=== PATIENT | male | born 1945 | race American Indian/Alaskan Native ===

== ENCOUNTER 2017-02-11 06:42 | Observation (INO) | payer MEDICARE ==
[2017-02-11 07:44] LABS: Hematocrit 31.9 % (35.5-45.6); Mean Corpuscular HGB Conc 35 % (32-34); Mean Corpuscular Hemoglobin 27 pg (28-32); Mean Corpuscular Volume 77 fl (84-94); Red Blood Count 4.16 M/mm3 (3.65-5.03); Red Cell Distribution Width 17.9 % (13.2-15.2); White Blood Count 11.9 K/mm3 (4.5-11.0)
[2017-02-11 07:56] LABS: INR 1.13 (0.87-1.13)
[2017-02-11 07:58] LABS: Anion Gap 17 mmol/L; BUN/Creatinine Ratio 21.25; Blood Urea Nitrogen 17 mg/dL (9-20); Calcium 8.8 mg/dL (8.4-10.2); Carbon Dioxide 24 mmol/L (22-30); Chloride 104.1 mmol/L (98-107); Glucose 187 mg/dL (75-100); Potassium 4.2 mmol/L (3.6-5.0); Sodium 141 mmol/L (137-145)
[2017-02-11] MEDS ORDERED: NACL 0.9% 500 ML 500 ML IV SCH (08:00)
[2017-02-11 08:46] LABS: Platelet Count 337 K/mm3 (140-440)
[2017-02-11 08:50] LABS: Blastocytes % (Manual) 0 %
[2017-02-11 08:52] LABS: Elliptocytes 3+; Helmet Cells Rare
[2017-02-11 08:53] LABS: Diff Status Complete; Poikilocytosis 3+; Schistocytes Rare
[2017-02-11] MEDS ORDERED: HEPARIN/NS 5000 UNIT/500ML(CATH LAB) 1,000 ML IR ONE (09:56)
[2017-02-11] MEDS ORDERED: VERSED ONE (09:57)
[2017-02-11] MEDS ORDERED: SUBLIMAZE ONE (09:58)
[2017-02-11] MEDS: XYLOCAINE 2% INFILTRATI ONE ×2 (10:31→10:39)
[2017-02-11] MEDS: NITROGLYCERIN SYRINGE 3 ML ONE ×3 (10:31→10:40)
[2017-02-11] MEDS: CALAN ONE ×2 (10:32→10:40)
[2017-02-11] MEDS: HEPARIN 10,000 UNITS/10 ML ONE ×2 (10:32→10:40)
[2017-02-11] MEDS ORDERED: LASIX ONE (10:45)
[2017-02-11] MEDS ORDERED: K-DUR PO ONE ×3 (11:04→12:00)
[2017-02-11] MEDS ORDERED: DULCOLAX PR PRN (13:35)
[2017-02-11] MEDS ORDERED: ZOFRAN IV PRN (13:35)
[2017-02-11] MEDS ORDERED: MILK OF MAGNESIA PO PRN (13:35)
[2017-02-11] MEDS ORDERED: TYLENOL PO PRN (13:35)
--- NOTE | 2017-02-11 13:51 | History and Physical Report ---
History of Present Illness Date of examination: 02/11/17 Date of admission: 02/11/2017 Chief complaint: dyspnea, orthopnea History of present illness: Pt is a 71 YO male with a past medical history significant for severe MR ( consultation with CT surgeon pending), CMP (EF 25-30%), AICD in situ, HTN, HLP and DM. He is followed in our office by Dr. Chana Arroyo. Pt presented today for scheduled elective LHC with c/o orthopnea and dyspnea. He successfully underwent LHC which showed patent coronaries but elevated intracardiac pressures. He was given IV lasix and monitored in OPPU. Several hours following IV lasix injection, pt continued to have c/o dyspnea and was found to have bibasilar rales on examination. He will be admitted for at least overnight observation and management of acute on chronic combined systolic and diastolic heart failure. Echo done 01/21/2017 showed EF 25-30%, LV severely dilated, grade III diastolic dysfunction, pacemaker in RV, severe MR. Past History Past Medical History: diabetes, heart failure, hypertension, hyperlipidemia, other (severe MR; CMP) Past Surgical History: Other (AICD) Social history: , lives with family. denies: smoking, alcohol abuse, prescription drug abuse Medications and Allergies Allergies Allergy/AdvReac Type Severity Reaction Status Date / Time No Known Allergies Allergy Verified 02/11/17 07:18 Home Medications Medication Instructions Recorded Confirmed Last Taken Type Aspirin [Adult Low Dose Aspirin EC] 1 tab PO DAILY 10/31/15 02/11/17 02/10/17 22 :00 History Carvedilol [Coreg] 25 mg PO DAILY 10/31/15 02/11/17 02/09/17 History Hydrochlorothiazide 25 mg PO DAILY 10/31/15 02/11/17 2 Weeks Ago History [Hydrochlorothiazide] Metformin HCl [Metformin] 1,000 mg PO BID 10/31/15 02/11/17 02/09/17 History Multivit, Iron, Min #5, FA 1 each PO DAILY 10/31/15 02/11/17 02/09/17 History [Strovite Forte Caplet] Tamsulosin HCl [Tamsulosin HCl] 1 tab PO DAILY 10/31/15 02/11/17 02/09/17 History Active Meds: Active Medications Acetaminophen (Tylenol) 650 mg PO Q4H PRN PRN Reason: Pain MILD(1-3)/Fever >100.5/LAYNE Aspirin (Halfprin Ec) mg PO DAILY [facility] Bisacodyl (Dulcolax) 10 mg [place] QDAY PRN PRN Reason: Constipation unrelieved by MOM Carvedilol (Coreg) 12.5 mg PO BID [facility] Furosemide (Lasix) 40 mg IV 0600,1800 [facility] Sodium Chloride (Nacl 0.9% 500 Ml) 500 mls @ 50 mls/hr IV DIRECT [facility] Stop: 02/11/17 17:59 Last Admin: 02/11/17 08:30 Dose: 50 mls/hr Losartan Potassium (Cozaar) 100 mg PO QDAY [facility] Magnesium Hydroxide (Milk Of Magnesia) 30 ml PO Q4H PRN PRN Reason: Constipation Ondansetron HCl (Zofran) 4 mg IV Q8H PRN PRN Reason: N/V unrelieved by Reglan Spironolactone (Aldactone) 25 mg PO QDAY [facility] Tamsulosin HCl (Flomax) mg PO DAILY [facility] Review of Systems Constitutional: no weight loss, no weight gain, no fever, no chills, no sweats Ears, nose, mouth and throat: no ear pain, no nose pain, no sinus pressure, no sinus pain Cardiovascular: orthopnea, shortness of breath, dyspnea on exertion, paroxysmal nocturnal dyspnea, high blood pressure, no chest pain, no palpitations, no rapid /irregular heart beat, no edema, no syncope, no lightheadedness, no leg edema Respiratory: shortness of breath, dyspnea on exertion, pain on inspiration, no cough, no congestion, no wheezing Gastrointestinal: no abdominal pain, no nausea, no vomiting, no diarrhea, no constipation, no change in bowel habits Genitourinary Male: no dysuria, no hematuria, no flank pain, no discharge, no urinary frequency, no urinary hesitancy Musculoskeletal: no neck stiffness, no neck pain, no shooting arm pain, no arm numbness/tingling, no low back pain, no shooting leg pain, no leg numbness/ tingling, no redness of joints Integumentary: no rash, no pruritis, no redness, no sores, no wounds Neurological: no head injury, no paralysis, no weakness, no parathesias, no numbness, no tingling, no seizures, no syncope Psychiatric: no anxiety Endocrine: no cold intolerance, no heat intolerance Hematologic/Lymphatic: no easy bruising, no easy bleeding Allergic/Immunologic: no urticaria, no wheezing, no persistent infections Physical Examination Vital Signs Temp Pulse Resp BP Pulse Ox 98.3 F 84 20 125/79 95 02/11/17 07:17 02/11/17 07:17 02/11/17 07:02/11/17 07:02/11/17 07:17 General appearance: other (mild SOB at rest) HEENT: Positive: PERRL Cardiac: Positive: Reg Rate and Rhythm, S1/S2, Systolic Murmur Lungs: Positive: Rales (bibasilar), Wheezes (fine expiratory ) Neuro: Positive: Grossly Intact, Cranial Nerve 2-12 Intact Abdomen: Positive: Unremarkable, Soft, Active Bowel Sounds. Negative: Tender Skin: Positive: Clear. Negative: Rash, Wound Musculoskeletal: No Fluid Collection, No Pain, Normal Range of Motion Extremities: Absent: edema Results 02/12/17 05:17 02/12/17 05:17 Coagulation 02/11/17 02/11/17 Range/Units 07:30 07:30 PT 14.4 (12.2-14.9) Sec. INR 1.13 (0.87-1.13) APTT 45.9 H (24.2-36.6) Sec. CBC 02/11/17 Range/Units 07:30 WBC 11.9 H (4.5-11.0) K/mm3 RBC 4.16 (3.65-5.03) M/mm3 Hgb 11.0 L (11.8-15.2) gm/dl Hct 31.9 L (35.5-45.6) % Plt Count 337 (140-440) K/mm3 Comprehensive Metabolic Panel 02/11/17 Range/Units 07:30 Sodium 141 (137-145) mmol/L Potassium 4.2 (3.6-5.0) mmol/L Chloride 104.1 (98-107) mmol/L Carbon Dioxide 24 (22-30) mmol/L BUN 17 (9-20) mg/dL Creatinine 0.8 (0.8-1.5) mg/dL Glucose 187 H (75-100) mg/dL Calcium 8.8 (8.4-10.2) mg/dL - Imaging and Cardiology Echo: report reviewed Cardiac cath: report reviewed EKG interpretations - Telemetry EKG Rhythm: Paced Pacemaker: ventricular pacing w/capt Assessment and Plan Assessment: Acute on chronic combined systolic and diastolic heart failure Leukocytosis Dilated NICMP - EF 25-30% AICD in situ Severe MR HTN HLP DM Plan: Admit to telemetry. Await CXR. Initiate scheduled IV lasix, 40mg BID. Resume home ASA, BB, ARB, aldactone. Initiate AC/HS sliding scale Novolog. Hold home metformin x 48Hr given recent LHC. Repeat BMP and CBC in AM. Consult hospitalist, Dr. Potter, for assistance in medical care. Assessment and plan reviewed with pt and pt's family members at bedside. The patient has been seen in conjunction with Dr. Chana Arroyo who agrees with the assessment and plan of care.
[2017-02-11] MEDS ORDERED: PROVENTIL IH PRN (14:02)
[2017-02-11] MEDS ORDERED: D50W (25GM) Syringe IV PRN (14:13)
--- NOTE | 2017-02-11 14:14 | XRay Report ---
AP CHEST: HISTORY: Short of breath, Rales No comparison. A 3-lead pacemaker device is in position. There is moderate cardiomegaly, mild pulmonary venous congestion and small left pleural effusion. No convincing pneumonia. No pneumothorax. The bony structures are grossly intact. IMPRESSION: CHF.
[2017-02-11] MEDS: FLOMAX PO SCH (16:13)
--- NOTE | 2017-02-11 16:32 | History and Physical Report ---
History of Present Illness Date of admission: 02/11/17 13:35 Chief complaint: I cant breathe History of present illness: 71 YO Male with Systolic CHF(EF 25%), MR, HTN, HLD, DM presents to ED for evaluation. Pt states that he has experienced difficulty breathing for the past 4 days with worsening symptoms over the past 6 hours. Pt denies fever, chills, CP, Palpitations, NVD, Syncope, recent ill contacts, prolonged travel/immobility , individual/family history of DVT/PE, unintentional weight loss, night sweats. Pt acknowledges orthopnea, PND. Pt underwent LHC which showed patent coronaries but elevated intracardiac pressures consistent with CHF/Pulmonary HTN. Past History Past Medical History: diabetes, heart failure, hypertension, hyperlipidemia, other (severe MR; CMP) Past Surgical History: Other (AICD) Social history: , lives with family. denies: smoking, alcohol abuse, prescription drug abuse Family history: diabetes, hypertension Medications and Allergies Allergies Allergy/AdvReac Type Severity Reaction Status Date / Time No Known Allergies Allergy Verified 02/11/17 07:18 Home Medications Medication Instructions Recorded Confirmed Last Taken Type Aspirin [Adult Low Dose Aspirin EC] 1 tab PO DAILY 10/31/15 02/11/17 02/10/17 22 :00 History Carvedilol [Coreg] 25 mg PO DAILY 10/31/15 02/11/17 02/09/17 History Hydrochlorothiazide 25 mg PO DAILY 10/31/15 02/11/17 2 Weeks Ago History [Hydrochlorothiazide] Metformin HCl [Metformin] 1,000 mg PO BID 10/31/15 02/11/17 02/09/17 History Multivit, Iron, Min #5, FA 1 each PO DAILY 10/31/15 02/11/17 02/09/17 History [Strovite Forte Caplet] Tamsulosin HCl [Tamsulosin HCl] 1 tab PO DAILY 10/31/15 02/11/17 02/09/17 History Active Meds: Active Medications Acetaminophen (Tylenol) 650 mg PO Q4H PRN PRN Reason: Pain MILD(1-3)/Fever >100.5/LAYNE Albuterol (Proventil) 2.5 mg IH Q6HRT PRN PRN Reason: Wheezing Aspirin (Halfprin Ec) 81 mg PO DAILY [facility] Bisacodyl (Dulcolax) 10 mg [place] QDAY PRN PRN Reason: Constipation unrelieved by MOM Carvedilol (Coreg) 12.5 mg PO BID [facility] Dextrose (D50w (25gm) Syringe) 50 ml IV PRN PRN PRN Reason: Hypoglycemia Famotidine (Pepcid) 20 mg PO QDAY [facility] Furosemide (Lasix) 40 mg IV 0600,1800 [facility] Heparin Sodium (Porcine) (Heparin) 5,000 unit SUB-Q Q8HR [facility] Sodium Chloride (Nacl 0.9% 500 Ml) 500 mls @ 50 mls/hr IV DIRECT [facility] Stop: 02/11/17 17:59 Last Admin: 02/11/17 08:30 Dose: 50 mls/hr Insulin Aspart (Novolog) 0 units SUB-Q ACHS [facility] PRN Reason: Protocol Losartan Potassium (Cozaar) 100 mg PO QDAY [facility] Magnesium Hydroxide (Milk Of Magnesia) 30 ml PO Q4H PRN PRN Reason: Constipation Ondansetron HCl (Zofran) 4 mg IV Q8H PRN PRN Reason: N/V unrelieved by Reglan Spironolactone (Aldactone) 25 mg PO QDAY [facility] Tamsulosin HCl (Flomax) 0.4 mg PO DAILY [facility] Last Admin: 02/11/17 16:13 Dose: 0.4 mg Review of Systems Constitutional: no weight loss, no weight gain, no fever, no chills, no sweats Ears, nose, mouth and throat: no ear pain, no ear discharge, no tinnitis, no decreased hearing, no nose pain, no nasal congestion Cardiovascular: orthopnea, shortness of breath, paroxysmal nocturnal dyspnea, no chest pain, no palpitations, no rapid/irregular heart beat, no edema Respiratory: no cough, no cough with sputum, no excessive sputum, no hemoptysis , no shortness of breath Gastrointestinal: no abdominal pain, no nausea, no vomiting, no diarrhea, no constipation Genitourinary Male: no hematuria, no flank pain, no discharge, no urinary frequency, no urinary hesitancy, no nocturia Rectal: no pain, no incontinence, no bleeding Musculoskeletal: no neck stiffness, no neck pain, no shooting arm pain, no arm numbness/tingling, no low back pain, no shooting leg pain Integumentary: no rash, no pruritis, no redness, no sores, no wounds Neurological: no head injury, no transient paralysis, no paralysis, no weakness , no parathesias, no numbness, no tingling, no headaches, no migraines, no tic, no convulsions, no aphasia Exam - Constitutional Vitals: Temp Pulse Resp BP Pulse Ox 122.0 F H 96 H 20 134/82 94 02/11/17 15:34 02/11/17 15:34 02/11/17 15:34 02/11/17 15:34 02/11/17 15:34 General appearance: Present: mild distress, obese - EENT Eyes: Present: PERRL ENT: hearing intact, clear oral mucosa - Respiratory Respiratory effort: normal Respiratory: bilateral: diminished - Cardiovascular Heart Sounds: Present: S1 & S2. Absent: rub, click - Extremities Extremities: pulses symmetrical, No edema Extremity abnormal: edema Peripheral Pulses: within normal limits - Abdominal General gastrointestinal: Present: soft, non-tender, non-distended, normal bowel sounds Male genitourinary: Present: normal - Rectal Rectal Exam: normal rectal tone - Integumentary Integumentary: Present: clear, warm, dry - Musculoskeletal Musculoskeletal: generalized weakness - Psychiatric Psychiatric: appropriate mood/affect, intact judgment & insight - Neurologic Neurologic: CNII-XII intact, moves all extremities, no gait normal Results - Labs CBC & Chem 7: 02/11/17 07:30 02/11/17 07:30 Labs: Abnormal lab results 02/11/17 02/11/17 02/11/17 Range/Units 07:30 07:30 07:30 WBC 11.9 H (4.5-11.0) K/mm3 Hgb 11.0 L (11.8-15.2) gm/dl Hct 31.9 L (35.5-45.6) % MCV 77 L (84-94) fl MCH 27 L (28-32) pg MCHC 35 H (32-34) % RDW 17.9 H (13.2-15.2) % Seg Neuts % (Manual) 72.0 H (40.0-70.0) % Seg Neutrophils # Man 8.6 H (1.8-7.7) K/mm3 APTT 45.9 H (24.2-36.6) Sec. Glucose 187 H (75-100) mg/dL Assessment and Plan - Patient Problems (1) CHF (congestive heart failure) Current Visit: Yes Status: Acute Qualifiers: Congestive heart failure type: C Congestive heart failure chronicity: C Plan to address problem: Afterload reduction, monitor uop q shift, diuretic therapy, telemetry, supportive care. (2) Diabetes Current Visit: Yes Status: Acute Qualifiers: Diabetes mellitus type: D Diabetes mellitus complication status: D Diabetes mellitus complication detail: D Diabetic retinopathy severity: D Proliferative retinopathy type: P Diabetes mellitus macular edema: D Diabetes mellitus terminologist insulin use: D Laterality: L Chronic kidney disease stage: C Plan to address problem: ADA diet, insulin, accu check (3) HTN (hypertension) Current Visit: Yes Status: Acute Qualifiers: Hypertension type: H Plan to address problem: Monitor BP q shift, resume home medication (4) HLD (hyperlipidemia) Current Visit: Yes Status: Acute Qualifiers: Hyperlipidemia type: H Plan to address problem: continue current therapy, low cholesterol diet (5) Mitral regurgitation Current Visit: Yes Status: Acute Qualifiers: Cardiac valve disease etiology: C Plan to address problem: continue current therapy, Outpatient CT surgery F/U (6) Metabolic syndrome Current Visit: Yes Status: Acute Plan to address problem: Balanced diet, increased physical activity, (7) DVT prophylaxis Current Visit: Yes Status: Acute
[2017-02-11] MEDS: NOVOLOG SUB-Q SCH ×2 (17:40→21:31)
[2017-02-11] MEDS: LASIX IV SCH (17:44)
[2017-02-11] MEDS: COREG PO SCH (21:31)
--- NOTE | 2017-02-12 00:48 | Cardiac Catherization Report ---
CARDIAC CATHETERIZATION REFERRING PHYSICIAN: Shade Arroyo MD INDICATION FOR PROCEDURE: The patient is a very pleasant 71-year-old -[place] gentleman with a longstanding history of a severe nonischemic cardiomyopathy. His mitral regurgitation is becoming worse, now severe. His dyspnea also continues to get worse, has had heart failure over the past several weeks, diuretics have been adjusted. The left heart catheterization is performed to evaluate mitral regurgitation and possibilities for valve therapy. PROCEDURE IN DETAIL: The patient was brought to catheterization lab in a postabsorptive state, prepped and draped in sterile fashion. Bryant's test in right hand was normal. A 2 mL of 2% lidocaine used to anesthetize the right wrist. A standard 6-Portuguese hydrophilic sheath used to cannulate the right radial artery via modified Seldinger technique. All exchanges performed to exchange a J-tip guidewire. JL3.5 catheter used to engage the left main. No dampening or ventricularization. Cineangiography performed in all projections. JR4 catheter used to engage the right coronary. No dampening or ventricularization. Cineangiography performed in all projections. A pigtail catheter used to cross the aortic valve under fluoroscopic guidance. Left ventriculography performed in the RORY projection via power injector. Next, catheter flushed. Manual pullback performed with continuous pressure monitoring. Catheter used to engage the right coronary. Catheter removed from the body of wire, sheath removed. Manual pressure used to achieve hemostasis. There were no complications. DATA: The patient remained in sinus rhythm throughout the procedure. Left ventriculography reveals severe global left ventricular hypokinesis, estimated ejection fraction of 20-25% with severe mitral regurgitation. CORONARY ANATOMY: This is a right dominant system. Right coronary is a large vessel, courses AV groove, distally bifurcates in the posterior descending and posterolateral branch. No discrete stenosis identified. Left main is without significant disease, bifurcates into left anterior descending and left circumflex. LAD is a moderate sized vessel, courses anterior intergroove, wraps around the apex, no significant disease. Left circumflex is a moderate sized vessel, courses AV groove. No significant disease. CONCLUSIONS: 1. No angiographic evidence of significant epicardial coronary artery disease in this right dominant system. 2. Severe global left ventricular hypokinesis, with estimated ejection fraction of 20-25%. 3. Severe mitral regurgitation. 4. Markedly elevated LVEDP. At this point, the patient will be given IV Lasix and potassium supplementation. He is clinically stable. He has severe mitral regurgitation, undoubtedly portion of this is functional from annular dilatation; however, my concern is there may be some primary valvulopathy given his worsening MR and clinical symptoms over the past several months. We will refer to cardiac surgery for possible repair and annular ring placement. Results of procedure were explained at length to the patient and his . All questions and concerns were addressed. JOB# [id number] SBJohn/NTS
[2017-02-12] MEDS: LASIX IV SCH (05:32)
[2017-02-12 05:44] LABS: Hematocrit 32.1 % (35.5-45.6); Hemoglobin 10.8 gm/dl (11.8-15.2); Mean Corpuscular HGB Conc 34 % (32-34); Mean Corpuscular Hemoglobin 26 pg (28-32); Mean Corpuscular Volume 77 fl (84-94); Red Blood Count 4.15 M/mm3 (3.65-5.03); Red Cell Distribution Width 18.6 % (13.2-15.2); White Blood Count 11.3 K/mm3 (4.5-11.0)
[2017-02-12 05:52] LABS: Platelet Count 224 K/mm3 (140-440)
[2017-02-12 06:04] LABS: Anion Gap 20 mmol/L; Blood Urea Nitrogen 14 mg/dL (9-20); Calcium 8.6 mg/dL (8.4-10.2); Carbon Dioxide 24 mmol/L (22-30); Chloride 103.2 mmol/L (98-107); Glucose 149 mg/dL (75-100); Potassium 3.7 mmol/L (3.6-5.0); Sodium 143 mmol/L (137-145)
[2017-02-12] MEDS: NOVOLOG SUB-Q SCH ×2 (08:31→12:40)
[2017-02-12] MEDS: COREG PO SCH (09:30)
[2017-02-12] MEDS: FLOMAX PO SCH (09:30)
[2017-02-12] MEDS ORDERED: K-DUR PO NR (09:30)
[2017-02-12 09:41] VITALS: BP 121/69
--- NOTE | 2017-02-12 09:50 | Progress Note ---
Assessment and Plan Assessment: Acute on chronic combined systolic and diastolic heart failure - clinically improving Leukocytosis Dilated NICMP - EF 25-30% AICD in situ Severe MR HTN HLP DM Plan: Currently stable cardiac status. Cont current cardiac regimen. Wean O2 as tolerated. Encourage increased activity and ambulation. Possible d/c home this afternoon pending O2 is weaned and pt tolerates activity well. Will re-evaluate this afternoon. Will plan to discharge home on PO lasix, 40mg daily, and PO KCL, 20 mEq daily. Assessment and plan reviewed with pt at bedside. The patient has been seen in conjunction with Dr. Naik who agrees with the assessment and plan of care. Subjective Date of service: 02/12/17 Principal diagnosis: HF Interval history: Pt resting comfortably in bed, respirations even and unlabored. States his SOB has resolved. VSS. Objective Last Vital Signs Temp 97.9 F 02/12/17 07:34 Pulse 68 02/12/17 06:00 Resp 18 02/12/17 07:34 BP 121/69 02/12/17 07:34 Pulse Ox 95 02/12/17 03:52 - Physical Examination General: Appears Well HEENT: Positive: PERRL Neck: Positive: neck supple, trachea midline Cardiac: Positive: Reg Rate and Rhythm, S1/S2 Lungs: Positive: Decreased Breath Sounds, Wheezes (fine bibasilar) Neuro: Positive: Grossly Intact, Cranial Nerve 2-12 Intact Abdomen: Positive: Unremarkable, Soft, Active Bowel Sounds. Negative: Tender Skin: Positive: Clear. Negative: Rash, Wound Musculoskeletal: No Fluid Collection, No Pain, Normal Range of Motion Extremities: Absent: edema - Labs and Meds CBC 02/12/17 Range/Units 05:17 WBC 11.3 H (4.5-11.0) K/mm3 RBC 4.15 (3.65-5.03) M/mm3 Hgb 10.8 L (11.8-15.2) gm/dl Hct 32.1 L (35.5-45.6) % Plt Count 224 (140-440) K/mm3 Comprehensive Metabolic Panel 02/12/17 Range/Units 05:17 Sodium 143 (137-145) mmol/L Potassium 3.7 (3.6-5.0) mmol/L Chloride 103.2 (98-107) mmol/L Carbon Dioxide 24 (22-30) mmol/L BUN 14 (9-20) mg/dL Creatinine 0.8 (0.8-1.5) mg/dL Glucose 149 H (75-100) mg/dL Calcium 8.6 (8.4-10.2) mg/dL - Telemetry EKG Rhythm: Sinus Rhythm Pacemaker: ventricular pacing w/capt
[2017-02-12] MEDS ORDERED: COZAAR PO SCH (10:00)
[2017-02-12] MEDS ORDERED: HALFPRIN EC PO SCH (10:00)
[2017-02-12] MEDS ORDERED: PEPCID PO SCH (10:00)
[2017-02-12] MEDS ORDERED: HEPARIN SUB-Q SCH (10:00)
[2017-02-12] MEDS ORDERED: ALDACTONE PO SCH (10:00)
--- NOTE | 2017-02-12 14:45 | Discharge Summary ---
Providers - Providers Date of Admission: 02/11/17 13:35 Date of discharge: 02/12/17 Attending physician: ASH Potter Primary care physician: MADDY NORWOOD Hospitalization Condition: Stable Pertinent studies: [facility] - see cath report Procedures: [facility] Hospital course: Pt is a 71 YO male with a past medical history significant for severe MR ( consultation with CT surgeon pending), CMP (EF 25-30%), AICD in situ, HTN, HLP and DM. He is followed in our office by Dr. Chana Loyola. Pt presented yesterday for scheduled elective LHC with c/o orthopnea and dyspnea. He successfully underwent LHC which showed patent coronaries but elevated intracardiac pressures. He was given IV lasix and monitored in OPPU. Several hours following IV lasix injection, pt continued to have c/o dyspnea and was found to have bibasilar rales on examination. He was admitted overnight for management of acute on chronic combined systolic and diastolic heart failure. He diuresed well overnight and appears clinically improved. He appears medically stable for discharge home today. He is to follow up in our [place] office with Dr. Chana Loyola on 02/21/2017 @ 2: 15PM. He is to follow up with Dr. Flanagan at [place] on 02/18/2017 @ 11:30AM. Disposition: DC-01 TO HOME OR SELFCARE - Discharge Diagnoses (1) Acute on chronic combined systolic (congestive) and diastolic (congestive) heart failure Status: Acute (2) Severe mitral regurgitation Status: Chronic (3) NICM (nonischemic cardiomyopathy) Status: Acute (4) Implantable cardioverter-defibrillator (ICD) in situ Status: Chronic (5) HLD (hyperlipidemia) Status: Chronic Qualifiers: Hyperlipidemia type: H (6) Diabetes Status: Chronic Qualifiers: Diabetes mellitus type: D Diabetes mellitus complication status: D Diabetes mellitus complication detail: D Diabetic retinopathy severity: D Proliferative retinopathy type: P Diabetes mellitus macular edema: D Diabetes mellitus half-way insulin use: D Laterality: L Chronic kidney disease stage: C (7) HTN (hypertension) Status: Chronic Qualifiers: Hypertension type: H Core Measure Documentation - Palliative Care Palliative Care/ Comfort Measures: Not Applicable - Core Measures Any of the following diagnoses?: heart failure - Heart Failure Discharge Requirements TAMERA/ARB for LVSD if EF <40%: Yes Beta brooke at discharge: Yes Exam - Constitutional Vitals: Temp Pulse Resp BP Pulse Ox 97.9 F 74 18 121/69 95 02/12/17 07:34 02/12/17 09:30 02/12/17 07:34 02/12/17 09:30 02/12/17 03:52 General appearance: Present: no acute distress - EENT Eyes: Present: PERRL, EOM intact ENT: hearing intact, clear oral mucosa, dentition normal - Neck Neck: Present: supple, normal ROM - Respiratory Respiratory effort: normal Respiratory: bilateral: CTA - Cardiovascular Rhythm: regular Heart Sounds: Present: S1 & S2, systolic murmur - Extremities Extremities: no ischemia, pulses intact, pulses symmetrical, No edema, normal temperature, normal color Peripheral Pulses: within normal limits - Abdominal General gastrointestinal: Present: soft, non-tender - Integumentary Integumentary: Present: clear, warm, dry - Musculoskeletal Musculoskeletal: strength equal bilaterally - Psychiatric Psychiatric: appropriate mood/affect - Neurologic Neurologic: CNII-XII intact - Allied Health Allied health notes reviewed: nursing Plan Activity: advance as tolerated Diet: low fat, low cholesterol, low salt Wound: open to air, keep clean and dry, per your surgeon's advice Follow up with: ASH LOYOLA MD [Staff Physician] - 7 Days ( [place] office with Dr. Chana Loyola on 02/21/2017 @ 2:15PM) KIERA FLANAGAN MD [Referring] - 7 Days (02/18/2017 @ 11:30AM ) Prescriptions: Furosemide [Lasix TAB] 40 mg PO QDAY #30 tablet Potassium Chloride [K-Dur] 20 meq PO QDAY #30 tablet
--- NOTE | 2017-02-12 18:44 | Progress Note ---
Assessment and Plan Assessment and plan: --Acute on chronic systolic congestive heart failure Symptoms significantly improved, continue current management cardiology optimizing the medications --Nonischemic cardiomyopathy; ejection fraction 20-30% Left heart catheterization normal coronaries --History of severe mitral regurgitation; patient is scheduled to see CT surgeon --History of ICD in place; stable --Dyslipidemia; stable on lipid-lowering medications --Type 2 diabetes mellitus; Accu-Chek sliding scale coverage. Her diet and insulin as needed --Hypertension moderate control --DVT prophylaxis Patient is medically stable Plan of care discussed with the patient and his nurse History Interval history: Patient feels better no new complaints Denies chest pain or shortness of breath Hospitalist Physical - Constitutional Vitals: Temp Pulse Resp BP Pulse Ox 97.9 F 74 18 121/69 95 02/12/17 07:34 02/12/17 09:30 02/12/17 07:34 02/12/17 09:30 02/12/17 03:52 General appearance: Present: no acute distress, well-nourished - EENT Eyes: Present: PERRL, EOM intact - Neck Neck: Present: supple, normal ROM - Respiratory Respiratory effort: normal Respiratory: bilateral: diminished, negative: rales, rhonchi, wheezing - Cardiovascular Rhythm: regular Heart Sounds: Present: S1 & S2 - Extremities Extremities: no ischemia, No edema Peripheral Pulses: within normal limits - Abdominal General gastrointestinal: soft, non-tender, non-distended, normal bowel sounds - Integumentary Integumentary: Present: clear, warm - Psychiatric Psychiatric: appropriate mood/affect, cooperative - Neurologic Neurologic: CNII-XII intact, moves all extremities Results - Labs CBC & Chem 7: 02/12/17 05:17 02/12/17 05:17 Labs: Laboratory Last Values WBC 11.3 K/mm3 (4.5-11.0) H 02/12/17 05:17 RBC 4.15 M/mm3 (3.65-5.03) 02/12/17 05:17 Hgb 10.8 gm/dl (11.8-15.2) L 02/12/17 05:17 Hct 32.1 % (35.5-45.6) L 02/12/17 05:17 MCV 77 fl (84-94) L 02/12/17 05:17 MCH 26 pg (28-32) L 02/12/17 05:17 MCHC 34 % (32-34) 02/12/17 05:17 RDW 18.6 % (13.2-15.2) H 02/12/17 05:17 Plt Count 224 K/mm3 (140-440) 02/12/17 05:17 Add Manual Diff Complete 02/11/17 07:30 Total Counted 100 02/11/17 07:30 Seg Neuts % (Manual) 72.0 % (40.0-70.0) H 02/11/17 07:30 Band Neutrophils % 0 % 02/11/17 07:30 Lymphocytes % (Manual) 18.0 % (13.4-35.0) 02/11/17 07:30 Reactive Lymphs % (Man) 3.0 % 02/11/17 07:30 Monocytes % (Manual) 6.0 % (0.0-7.3) 02/11/17 07:30 Eosinophils % (Manual) 1.0 % (0.0-4.3) 02/11/17 07:30 Metamyelocytes % 0 % 02/11/17 07:30 Myelocytes % 0 % 02/11/17 07:30 Promyelocytes % 0 % 02/11/17 07:30 Blast Cells % 0 % 02/11/17 07:30 Nucleated RBC % Not Reportable 02/11/17 07:30 Seg Neutrophils # Man 8.6 K/mm3 (1.8-7.7) H 02/11/17 07:30 Band Neutrophils # 0.0 K/mm3 02/11/17 07:30 Lymphocytes # (Manual) 2.1 K/mm3 (1.2-5.4) 02/11/17 07:30 Abs React Lymphs (Man) 0.4 K/mm3 02/11/17 07:30 Monocytes # (Manual) 0.7 K/mm3 (0.0-0.8) 02/11/17 07:30 Eosinophils # (Manual) 0.1 K/mm3 (0.0-0.4) 02/11/17 07:30 Basophils # (Manual) 0.0 K/mm3 (0.0-0.1) 02/11/17 07:30 Metamyelocytes # 0.0 K/mm3 02/11/17 07:30 Myelocytes # 0.0 K/mm3 02/11/17 07:30 Promyelocytes # 0.0 K/mm3 02/11/17 07:30 Blast Cells # 0.0 K/mm3 02/11/17 07:30 WBC Morphology Not Reportable 02/11/17 07:30 Hypersegmented Neuts Not Reportable 02/11/17 07:30 Hyposegmented Neuts Not Reportable 02/11/17 07:30 Hypogranular Neuts Not Reportable 02/11/17 07:30 Smudge Cells Not Reportable 02/11/17 07:30 Toxic Granulation Not Reportable 02/11/17 07:30 Toxic Vacuolation Not Reportable 02/11/17 07:30 Dohle Bodies Not Reportable 02/11/17 07:30 Pelger-Huet Anomaly Not Reportable 02/11/17 07:30 Dennise Rods Not Reportable 02/11/17 07:30 Platelet Estimate Appears normal 02/11/17 07:30 Clumped Platelets Not Reportable 02/11/17 07:30 Plt Clumps, EDTA Not Reportable 02/11/17 07:30 Large Platelets Not Reportable 02/11/17 07:30 Giant Platelets Not Reportable 02/11/17 07:30 Platelet Satelliting Not Reportable 02/11/17 07:30 Plt Morphology Comment Not Reportable 02/11/17 07:30 RBC Morphology Not Reportable 02/11/17 07:30 Dimorphic RBCs Not Reportable 02/11/17 07:30 Polychromasia Not Reportable 02/11/17 07:30 Hypochromasia Not Reportable 02/11/17 07:30 Poikilocytosis 3+ 02/11/17 07:30 Anisocytosis Not Reportable 02/11/17 07:30 Microcytosis Not Reportable 02/11/17 07:30 Macrocytosis Not Reportable 02/11/17 07:30 Spherocytes Not Reportable 02/11/17 07:30 Pappenheimer Bodies Not Reportable 02/11/17 07:30 Sickle Cells Not Reportable 02/11/17 07:30 Target Cells Not Reportable 02/11/17 07:30 Tear Drop Cells Not Reportable 02/11/17 07:30 Ovalocytes Not Reportable 02/11/17 07:30 Helmet Cells Rare 02/11/17 07:30 Sexton-Likely Bodies Not Reportable 02/11/17 07:30 Markle Rings Not Reportable 02/11/17 07:30 Gloria Cells Not Reportable 02/11/17 07:30 Bite Cells Rare 02/11/17 07:30 Crenated Cell Not Reportable 02/11/17 07:30 Elliptocytes 3+ 02/11/17 07:30 Acanthocytes (Spur) Not Reportable 02/11/17 07:30 Rouleaux Not Reportable 02/11/17 07:30 Hemoglobin C Crystals Not Reportable 02/11/17 07:30 Schistocytes Rare 02/11/17 07:30 Malaria parasites Not Reportable 02/11/17 07:30 Fernie Bodies Not Reportable 02/11/17 07:30 Hem Pathologist Commnt No 02/11/17 07:30 PT 14.4 Sec. (12.2-14.9) 02/11/17 07:30 INR 1.13 (0.87-1.13) 02/11/17 07:30 APTT 45.9 Sec. (24.2-36.6) H 02/11/17 07:30 Sodium 143 mmol/L (137-145) 02/12/17 05:17 Potassium 3.7 mmol/L (3.6-5.0) 02/12/17 05:17 Chloride 103.2 mmol/L (98-107) 02/12/17 05:17 Carbon Dioxide 24 mmol/L (22-30) 02/12/17 05:17 Anion Gap 20 mmol/L 02/12/17 05:17 BUN 14 mg/dL (9-20) 02/12/17 05:17 Creatinine 0.8 mg/dL (0.8-1.5) 02/12/17 05:17 Estimated GFR > 60 ml/min 02/12/17 05:17 BUN/Creatinine Ratio 17.50 % 02/12/17 05:17 Glucose 149 mg/dL (75-100) H 02/12/17 05:17 POC Glucose 187 (70-105) H 02/12/17 11:44 Calcium 8.6 mg/dL (8.4-10.2) 02/12/17 05:17
== END 2017-02-12 16:00 | disposition home or self-care (01) ==
LOC: CATHLABREC 06:42 → 4A 13:35
PROVIDERS: ADMIT Internal Medicine; ATTEND Internal Medicine
DX: I11.0 Hypertensive heart disease with heart failure (principal); I50.43 Acute on chronic combined systolic (congestive) and diastolic (congestive) heart failure; E11.9 Type 2 diabetes mellitus without complications; E78.5 Hyperlipidemia, unspecified; I34.0 Nonrheumatic mitral (valve) insufficiency; E88.81 Metabolic syndrome and other insulin resistance; I42.9 Cardiomyopathy, unspecified; Z95.810 Presence of automatic (implantable) cardiac defibrillator; D72.89 Other specified disorders of white blood cells
CPT/HCPCS: 36415; 71010; 80048; 82962; 85007; 85025; 85027; 85610; 85730; 93005; 93010; 93458; 96372; 96374; 96376; C1894; G0378; J1644; J1940; J2250; J3010; J7040; Q9967

== ENCOUNTER 2018-01-26 18:40 | Inpatient (IN) | payer MEDICARE ==
--- NOTE | 2018-01-26 19:43 | Emergency Department Report ---
ED Shortness of Breath HPI - General Chief Complaint: Dyspnea/Respdistress Stated Complaint: DIFFICULTY BREATHING/SOB Time Seen by Provider: 01/26/18 19:28 Source: patient, EMS, old records reviewed (02/11/17 cardiac cath, ef 20-25% with severe global lv dysfunction, severe mr, marked inc LVEDP, ) Mode of arrival: Stretcher Limitations: No Limitations - History of Present Illness Initial Comments: 72-year-old male with a past medical history CHF, COPD, diabetes, hypertension, sleep apnea with CPAP use, and ICD placement presents to the hospital complaining of shortness of breath has been progressively worsening over the last 2 days. Patient noticing worsening dyspnea on exertion and generalized fatigue. Also felt like he is retaining more fluid. He states recently his potassium has been high and therefore his medications have been adjusted. He denies chest pain, wheezing, cough, nausea, vomiting, or diaphoresis. He does not use home oxygen. Rn Corrections: Dr. Arroyo PMD: Dr. Cassandra Dejesus Patient has multiple food allergies as well and presents with a long list of foods that the patient cannot eat - Related Data Home Medications Medication Instructions Recorded Confirmed Last Taken Aspirin [Adult Low Dose Aspirin EC] 1 tab PO DAILY 10/31/15 02/11/17 02/10/17 22 :00 Carvedilol [Coreg] 25 mg PO DAILY 10/31/15 02/11/17 02/09/17 Metformin HCl [Metformin] 1,000 mg PO BID 10/31/15 02/11/17 02/09/17 Multivit,Iron,Min 5/Folic Acid 1 each PO DAILY 10/31/15 02/11/17 02/09/17 [Strovite Forte Caplet] Tamsulosin HCl 1 tab PO DAILY 10/31/15 02/11/17 02/09/17 Previous Rx's Medication Instructions Recorded Last Taken Type Furosemide [Lasix TAB] 40 mg PO QDAY #30 tablet 02/12/17 Unknown Rx Losartan [Cozaar] 100 mg PO QDAY tablet 02/12/17 Unknown Rx Potassium Chloride [K-Dur] 20 meq PO QDAY #30 tablet 02/12/17 Unknown Rx Spironolactone [Aldactone] 25 mg PO QDAY tablet 02/12/17 Unknown Rx Tamsulosin [Flomax] 0.4 mg PO DAILY capsule 02/12/17 Unknown Rx Allergies Allergy/AdvReac Type Severity Reaction Status Date / Time No Known Allergies Allergy Verified 02/11/17 07:18 ED Review of Systems ROS: Stated complaint: DIFFICULTY BREATHING/SOB Other details as noted in HPI Comment: All other systems reviewed and negative ED Past Medical Hx - Past Medical History Hx Hypertension: Yes (20yrs ago) Hx Heart Attack/AMI: No Hx Congestive Heart Failure: Yes Hx Diabetes: Yes (pill control) Hx Renal Disease: (BPH) Hx COPD: Yes Additional medical history: Sleep apnea with CPAP - Surgical History Hx Pacemaker: Yes (ICD) Hx Internal Defibrillator: Yes (ICD 16 yrs ago) - Social History Smoking Status: Never Smoker Substance Use Type: None - Medications Home Medications: Home Medications Medication Instructions Recorded Confirmed Last Taken Type Aspirin [Adult Low Dose Aspirin EC] 1 tab PO DAILY 10/31/15 02/11/17 02/10/17 22 :00 History Carvedilol [Coreg] 25 mg PO DAILY 10/31/15 02/11/17 02/09/17 History Metformin HCl [Metformin] 1,000 mg PO BID 10/31/15 02/11/17 02/09/17 History Multivit,Iron,Min 5/Folic Acid 1 each PO DAILY 10/31/15 02/11/17 02/09/17 History [Strovite Forte Caplet] Tamsulosin HCl 1 tab PO DAILY 10/31/15 02/11/17 02/09/17 History Furosemide [Lasix TAB] 40 mg PO QDAY #30 tablet 02/12/17 Unknown Rx Losartan [Cozaar] 100 mg PO QDAY tablet 02/12/17 Unknown Rx Potassium Chloride [K-Dur] 20 meq PO QDAY #30 tablet 02/12/17 Unknown Rx Spironolactone [Aldactone] 25 mg PO QDAY tablet 02/12/17 Unknown Rx Tamsulosin [Flomax] 0.4 mg PO DAILY capsule 02/12/17 Unknown Rx ED Physical Exam - General Limitations: No Limitations - Other Other exam information: General: No limitations, patient is alert in no acute distress Head exam: Atraumatic, normocephalic Eyes exam: Normal appearance ENT: Moist mucous membrane, normal oropharynx Neck exam: Normal inspection, full range of motion, no meningismus nontender Respiratory exam: No tachypnea or accessory muscle use. Diminished breath sounds bilaterally Cardiovascular: Normal rate and rhythm Abdomen: Soft, nondistended, and nontender, with normal bowel sounds, no rebound, or guarding rectal: guaic neg brown stool Extremity: Full range of motion normal inspection no deformity Back: Normal Inspection, full range of motion, no tenderness Neurologic: Alert, oriented x3, cranial nerves intact, no motor or sensory deficit Psychiatric: normal affect, normal mood Skin: Warm, dry, intact ED Course Vital Signs 01/26/18 01/26/18 01/26/18 19:14 19:30 20:00 Temperature 98.1 F Pulse Rate 83 83 79 Respiratory 18 16 29 H Rate Blood Pressure 109/40 109/40 117/48 O2 Sat by Pulse 96 99 98 Oximetry 01/26/18 20:18 Temperature Pulse Rate Respiratory 18 Rate Blood Pressure O2 Sat by Pulse 99 Oximetry ED Medical Decision Making - Lab Data Result diagrams: 01/26/18 19:54 01/26/18 19:54 Lab Results 01/26/18 01/26/18 01/26/18 Range/Units 19:54 19:54 19:54 WBC 36.5 H (4.5-11.0) K/mm3 RBC 3.04 L (3.65-5.03) M/mm3 Hgb 6.8 L (11.8-15.2) gm/dl Hct 21.0 L (35.5-45.6) % MCV 69 L (84-94) fl MCH 22 L (28-32) pg MCHC 32 (32-34) % RDW 35.4 H (13.2-15.2) % Plt Count 142 (140-440) K/mm3 Seg Neutrophils % Counter Maker PT 17.5 H (12.2-14.9) Sec. INR 1.35 H (0.87-1.13) APTT 53.6 H (24.2-36.6) Sec. Sodium 133 L (137-145) mmol/L Potassium 4.8 (3.6-5.0) mmol/L Chloride 104.0 (98-107) mmol/L Carbon Dioxide 14 L (22-30) mmol/L Anion Gap 20 mmol/L BUN 62 H (9-20) mg/dL Creatinine 2.1 H (0.8-1.5) mg/dL Estimated GFR 38 ml/min BUN/Creatinine Ratio 30 % Glucose 168 H (75-100) mg/dL Calcium 8.6 (8.4-10.2) mg/dL Total Bilirubin 2.60 H (0.1-1.2) mg/dL AST 40 (5-40) units/L ALT 60 H (7-56) units/L Alkaline Phosphatase 118 (35-129) units/L Total Creatine Kinase (55-170) units/L CK-MB (CK-2) (0.0-4.0) ng/mL CK-MB (CK-2) Rel Index (0-4) Troponin T 0.030 H (0.00-0.029) ng/mL NT-Pro-B Natriuret Pep (0-900) pg/mL Total Protein 6.5 (6.3-8.2) g/dL Albumin 3.4 L (3.9-5) g/dL Albumin/Globulin Ratio 1.1 % Triglycerides 107 (2-149) mg/dL Cholesterol 61 (50-199) mg/dL LDL Cholesterol Direct 17 L (50-130) mg/dL HDL Cholesterol 14 L (40-59) mg/dL Cholesterol/HDL Ratio 4.35 % 01/26/18 01/26/18 Range/Units 19:54 19:54 WBC (4.5-11.0) K/mm3 RBC (3.65-5.03) M/mm3 Hgb (11.8-15.2) gm/dl Hct (35.5-45.6) % MCV (84-94) fl MCH (28-32) pg MCHC (32-34) % RDW (13.2-15.2) % Plt Count (140-440) K/mm3 Seg Neutrophils % PT (12.2-14.9) Sec. INR (0.87-1.13) APTT (24.2-36.6) Sec. Sodium (137-145) mmol/L Potassium (3.6-5.0) mmol/L Chloride (98-107) mmol/L Carbon Dioxide (22-30) mmol/L Anion Gap mmol/L BUN (9-20) mg/dL Creatinine (0.8-1.5) mg/dL Estimated GFR ml/min BUN/Creatinine Ratio % Glucose (75-100) mg/dL Calcium (8.4-10.2) mg/dL Total Bilirubin (0.1-1.2) mg/dL AST (5-40) units/L ALT (7-56) units/L Alkaline Phosphatase (35-129) units/L Total Creatine Kinase 121 (55-170) units/L CK-MB (CK-2) 1.6 (0.0-4.0) ng/mL CK-MB (CK-2) Rel Index 1.3 (0-4) Troponin T (0.00-0.029) ng/mL NT-Pro-B Natriuret Pep 4260 H (0-900) pg/mL Total Protein (6.3-8.2) g/dL Albumin (3.9-5) g/dL Albumin/Globulin Ratio % Triglycerides (2-149) mg/dL Cholesterol (50-199) mg/dL LDL Cholesterol Direct (50-130) mg/dL HDL Cholesterol (40-59) mg/dL Cholesterol/HDL Ratio % - EKG Data -: EKG Interpreted by Me (AV pacemaker) EKG shows normal: axis (qrs 253), QRS complexes (qrsd 171) - Radiology Data Radiology results: report reviewed FINAL REPORT PROCEDURE: XR CHEST 1V AP TECHNIQUE: Chest radiograph anteroposterior view. CPT 91530 HISTORY: Dyspnea COMPARISON: No prior studies are available for comparison. FINDINGS: Heart: Mild cardiomegaly is noted. Mediastinum/Vessels: Mild degree pulmonary venous congestion is identified. Lungs/Pleural space: Normal. Bony thorax: No acute osseous abnormality. Life support devices: A cardiac device is noted on the left side. IMPRESSION: Mild degree cardiomegaly with mild degree pulmonary venous congestion. - Medical Decision Making generalized weakness and sob Patient has significant anemia which is new compared to previous values with low MCV value therefore may be a component of iron deficiency -Guaiac is negative and no signs of acute bleeding -Patient will likely need a blood mild chf on cxr Significant leukocytosis Clinically patient is not presenting with acute infection symptoms Sepsis protocol labs have been ordered including cultures and lactic acid Patient did not receive 30 MC bolus of normal saline given that chest x-ray already shows signs of venous congestion and patient has a last known EF of 20- 25%. Patient also does not have signs of tachycardia or low MAP. zosyn ordered empirically Suspicious for CLL or another type of cancer Renal insufficiency New compared to last year Elevated troponin No chest pain EKG with paced rhythm Could be due to elevated creatinine Repeat ordered asa given - Differential Diagnosis mi, unstable angina, pe, anemia, cancer, infection, chf Critical Care Time: No Critical care attestation.: If time is entered above; I have spent that time in minutes in the direct care of this critically ill patient, excluding procedure time. ED Disposition Clinical Impression: Leukocytosis, Anemia, Generalized weakness, SOB (shortness of breath), Diabetes , CHF exacerbation, Acute renal insufficiency, Elevated troponin Disposition: OP ADMIT IP TO THIS HOSP Is pt being admited?: Yes Condition: Stable Time of Disposition: 21:30 (Dr correa/hosp)
[2018-01-26 20:17] LABS: Hemoglobin 6.8 gm/dl (11.8-15.2); Mean Corpuscular HGB Conc 32 % (32-34); Mean Corpuscular Hemoglobin 22 pg (28-32); Mean Corpuscular Volume 69 fl (84-94); Red Blood Count 3.04 M/mm3 (3.65-5.03); Red Cell Distribution Width 35.4 % (13.2-15.2)
[2018-01-26 20:18] LABS: Platelet Count 142 K/mm3 (140-440)
[2018-01-26 20:27] LABS: INR 1.35 (0.87-1.13)
[2018-01-26 20:28] LABS: Partial Thromboplastin Time 53.6 Sec. (24.2-36.6)
[2018-01-26 20:29] LABS: Creatine Kinase MB 1.6 ng/mL (0.0-4.0)
[2018-01-26 20:31] LABS: Albumin 3.4 g/dL (3.9-5); Calcium 8.6 mg/dL (8.4-10.2)
--- NOTE | 2018-01-26 20:41 | XRay Report ---
FINAL REPORT PROCEDURE: XR CHEST 1V AP TECHNIQUE: Chest radiograph anteroposterior view. CPT 74703 HISTORY: Dyspnea COMPARISON: No prior studies are available for comparison. FINDINGS: Heart: Mild cardiomegaly is noted. Mediastinum/Vessels: Mild degree pulmonary venous congestion is identified. Lungs/Pleural space: Normal. Bony thorax: No acute osseous abnormality. Life support devices: A cardiac device is noted on the left side. IMPRESSION: Mild degree cardiomegaly with mild degree pulmonary venous congestion.
[2018-01-26 20:42] LABS: Chol/HDL Ratio 4.35 %
[2018-01-26] MEDS ORDERED: ASPIRIN PO ONE (21:24)
[2018-01-26 21:39] LABS: Basophils % (Manual) 0 % (0.0-1.8); Eosinophils % (Manual) 0 % (0.0-4.3); RBC Morphology Normal; Total Cells Counted 100
[2018-01-26 21:40] LABS: INR 1.34 (0.87-1.13)
[2018-01-26 21:41] LABS: Partial Thromboplastin Time 52.4 Sec. (24.2-36.6)
[2018-01-26] MEDS ORDERED: ZOSYN/NS 4.5GM/100ML 4.5 GM/100 ML VIAL IV SCH (22:00)
[2018-01-26 22:05] LABS: Bacteria,Urine 1+ /HPF (Negative); Bilirubin,Urine NEG (Negative); Blood,Urine SM (Negative); Color,Urine Amber (Yellow); Hyaline Casts,Urine 1 /LPF; Mucus,Urine FEW /HPF
[2018-01-26] MEDS ORDERED: ZOFRAN IV PRN (22:10)
[2018-01-26] MEDS ORDERED: SODIUM CHLORIDE FLUSH SYRINGE 10 ML IV PRN (22:10)
[2018-01-26] MEDS ORDERED: BENADRYL IV ONE (22:10)
[2018-01-26] MEDS ORDERED: TYLENOL PO PRN (22:10)
[2018-01-26] MEDS ORDERED: NACL 0.9% 500 ML 500 ML IV ONE (22:10)
--- NOTE | 2018-01-26 22:17 | History and Physical Report ---
History of Present Illness Date of examination: 01/26/18 History of present illness: 72-year-old man with a history of CHF, COPD, hypertension, diabetes, sleep apnea comes emergency room with complaints of shortness of breath 1 month, dyspnea and exertion. He denies PND, orthopnea, chest pain Review of systems Constitutional: no weight loss, chills, fever Ears, eyes, nose, mouth and throat: no nasal congestion, no nasal discharge, no sinus pressure, no vision change, no red eye. Neck: No neck pain or rigidity. Cardiovascular: no chest pain, palpitations Respiratory: no cough Gastrointestinal: no abdominal pain hematochezia Genitourinary : no frequency , no hematuria Musculoskeletal: no joint swelling or muscle ache Integumentary: no rash, no pruritis Neurological: no parathesias, no numbness, no focal weakness Endocrine: no cold or heat intolerance, no polyuria or polydipsia Hematologic/Lymphatic: no easy bruising, no easy bleeding, no gland swelling Allergic/Immunologic: no urticaria, no angioedema. PAST MEDICAL HISTORY: CHF, COPD, hypertension, diabetes, sleep apnea PAST SURGICAL HISTORY: AICD SOCIAL HISTORY: No alcohol, no drugs, tobacco FAMILY HISTORY: Hypertension Medications and Allergies Allergies Allergy/AdvReac Type Severity Reaction Status Date / Time No Known Allergies Allergy Verified 02/11/17 07:18 Home Medications Medication Instructions Recorded Confirmed Last Taken Type Aspirin [Adult Low Dose Aspirin EC] 1 tab PO DAILY 10/31/15 02/11/17 02/10/17 22 :00 History Carvedilol [Coreg] 25 mg PO DAILY 10/31/15 02/11/17 02/09/17 History Metformin HCl [Metformin] 1,000 mg PO BID 10/31/15 02/11/17 02/09/17 History Multivit,Iron,Min 5/Folic Acid 1 each PO DAILY 10/31/15 02/11/17 02/09/17 History [Strovite Forte Caplet] Tamsulosin HCl 1 tab PO DAILY 10/31/15 02/11/17 02/09/17 History Furosemide [Lasix TAB] 40 mg PO QDAY #30 tablet 02/12/17 Unknown Rx Losartan [Cozaar] 100 mg PO QDAY tablet 02/12/17 Unknown Rx Potassium Chloride [K-Dur] 20 meq PO QDAY #30 tablet 02/12/17 Unknown Rx Spironolactone [Aldactone] 25 mg PO QDAY tablet 02/12/17 Unknown Rx Tamsulosin [Flomax] 0.4 mg PO DAILY capsule 02/12/17 Unknown Rx Active Meds: Active Medications Piperacillin Sod/Tazobactam Sod (Zosyn/Ns 4.5gm/100ml) 4.5 gm in 100 mls @ 200 mls/hr IV ONCE EVELIN Exam - Physical Exam Narrative exam: Gen. appearance: Patient lying in bed, no apparent distress HEENT: Normocephalic, atraumatic, pupils equally round and reactive to light, extraocular movement intact, and no sclericterus,. No JVD or thyromegaly or nodule,neck supple, no carotid bruit ,mucous membranes moist, no exudate or erythema Heart: S1, S2, regular rate and rhythm Lungs: Clear bilaterally, breathing comfortable Abdomen: Positive bowel sounds, non-tender, nondistended, no organomegaly Extremity:no edema cyanosis, clubbing Skin: no rash, dry, warm Neuro: Oriented 3, cranial nerves II-12 intact, speech is fluent, motor and sensory intact Heme-negative - Constitutional Vitals: Temp Pulse Resp BP Pulse Ox 98.1 F 79 18 117/48 99 01/26/18 19:14 01/26/18 20:00 01/26/18 21:40 01/26/18 20:00 01/26/18 21:40 Results - Labs CBC & Chem 7: 01/26/18 19:54 01/26/18 19:54 Labs: Abnormal lab results 01/26/18 01/26/18 01/26/18 Range/Units 19:54 19:54 19:54 WBC 36.5 H (4.5-11.0) K/mm3 RBC 3.04 L (3.65-5.03) M/mm3 Hgb 6.8 L (11.8-15.2) gm/dl Hct 21.0 L (35.5-45.6) % MCV 69 L (84-94) fl MCH 22 L (28-32) pg RDW 35.4 H (13.2-15.2) % Seg Neuts % (Manual) 93.0 H (40.0-70.0) % Lymphocytes % (Manual) 3.0 L (13.4-35.0) % Seg Neutrophils # Man 33.9 H (1.8-7.7) K/mm3 Lymphocytes # (Manual) 1.1 L (1.2-5.4) K/mm3 Monocytes # (Manual) 1.5 H (0.0-0.8) K/mm3 PT 17.5 H (12.2-14.9) Sec. INR 1.35 H (0.87-1.13) APTT 53.6 H (24.2-36.6) Sec. Sodium 133 L (137-145) mmol/L Carbon Dioxide 14 L (22-30) mmol/L BUN 62 H (9-20) mg/dL Creatinine 2.1 H (0.8-1.5) mg/dL Glucose 168 H (75-100) mg/dL Total Bilirubin 2.60 H (0.1-1.2) mg/dL ALT 60 H (7-56) units/L Troponin T 0.030 H (0.00-0.029) ng/mL NT-Pro-B Natriuret Pep (0-900) pg/mL Albumin 3.4 L (3.9-5) g/dL LDL Cholesterol Direct 17 L (50-130) mg/dL HDL Cholesterol 14 L (40-59) mg/dL 01/26/18 01/26/18 Range/Units 19:54 21:09 WBC (4.5-11.0) K/mm3 RBC (3.65-5.03) M/mm3 Hgb (11.8-15.2) gm/dl Hct (35.5-45.6) % MCV (84-94) fl MCH (28-32) pg RDW (13.2-15.2) % Seg Neuts % (Manual) (40.0-70.0) % Lymphocytes % (Manual) (13.4-35.0) % Seg Neutrophils # Man (1.8-7.7) K/mm3 Lymphocytes # (Manual) (1.2-5.4) K/mm3 Monocytes # (Manual) (0.0-0.8) K/mm3 PT 17.3 H (12.2-14.9) Sec. INR 1.34 H (0.87-1.13) APTT 52.4 H (24.2-36.6) Sec. 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 Symptomatic anemia Acute renal failure Hypertension Diabetes CHF, stable Sleep apnea Plan Admit to medicine Start IV antibiotic, follow cultures Transfuse packed red blood cells, check iron studies Premedicate prior to transfusion, check cardiac enzymes Consult hematology, renal Hold Nephrotoxic agents, diuretics, ARB Check fingersticks and initiate insulin sliding scale DVT prophylaxis Addendum Patient received some IV fluids in the emergency room Blood was started, the patient developed shortness of breath, wheezing He is using accessory muscles Solu-Medrol was given, IV Lasix and nebulized treatment and ABG was obtained, place on BiPAP The high probability of a clinically significant, sudden or life threatening deterioration of the [respiratory, hemodynamic and neurological] system(s) required my full and direct attention, intervention and personal management. The aggregate critical care time was [35] minutes. This time is in addition to time spent performing reported procedures but includes the following: [x] Data Review and interpretation [x] Patient assessment and monitoring of vital signs [x] Documentation [x] Medication orders and management
[2018-01-26] MEDS ORDERED: ZOSYN/NS 4.5GM/100ML 4.5 GM/100 ML VIAL IV ONE (23:00)
[2018-01-26] MEDS ORDERED: NACL 0.9% 500 ML 500 ML ONE (23:16)
[2018-01-26] MEDS ORDERED: BENADRYL ONE (23:17)
[2018-01-27] MEDS ORDERED: TYLENOL ONE (00:21)
[2018-01-27] MEDS ORDERED: SOLU-Medrol ONE (00:33)
[2018-01-27] MEDS ORDERED: LASIX ONE (00:35)
[2018-01-27] MEDS ORDERED: PROVENTIL IH ONE (00:52)
[2018-01-27] MEDS ORDERED: ATROVENT IH ONE (00:53)
[2018-01-27] MEDS: ATROVENT IH SCH ×6 (00:57→22:04)
[2018-01-27] MEDS: PROVENTIL IH SCH ×6 (00:57→22:04)
[2018-01-27] MEDS ORDERED: LASIX IV ONE (00:58)
[2018-01-27] MEDS ORDERED: SOLU-Medrol IV ONE (00:58)
[2018-01-27] MEDS ORDERED: D50W (25GM) Syringe IV PRN (03:27)
[2018-01-27] MEDS ORDERED: ATROVENT IH SCH (04:00)
[2018-01-27] MEDS ORDERED: PROVENTIL IH SCH (04:00)
[2018-01-27 05:57] LABS: Hematocrit 23.2 % (35.5-45.6); Hemoglobin 7.6 gm/dl (11.8-15.2); Mean Corpuscular HGB Conc 33 % (32-34); Mean Corpuscular Volume 72 fl (84-94); Red Blood Count 3.23 M/mm3 (3.65-5.03)
[2018-01-27 06:02] LABS: Mean Corpuscular Hemoglobin 23 pg (28-32); Platelet Count 160 K/mm3 (140-440); Red Cell Distribution Width 34.8 % (13.2-15.2)
[2018-01-27 06:11] LABS: Calcium 8.4 mg/dL (8.4-10.2)
[2018-01-27 06:12] LABS: Creatine Kinase MB 2.8 ng/mL (0.0-4.0)
[2018-01-27 07:57] LABS: Band Neutrophils # (Manual) 3.1 K/mm3; Basophils % (Manual) 0 % (0.0-1.8); Eosinophils % (Manual) 0 % (0.0-4.3); Monocytes % (Manual) 0 % (0.0-7.3); Total Cells Counted 100
[2018-01-27 07:58] LABS: Acanthocytes Few; Anisocytosis 2+; Helmet Cells Few; Hypochromasia 1+; Ovalocytes 1+; Poikilocytosis 2+; Schistocytes Few; Tear Drop Cells Few
[2018-01-27 08:40] LABS: % Iron Saturation 9.77 %
--- NOTE | 2018-01-27 09:08 | Consultation ---
History of Present Illness - Reason for Consult Consult date: 01/27/18 acute renal failure - History of Present Illness Mr. Thomas is a 72yo with CKD followed by Dr. Mena who presents to the ED with SOB. He reports a 2-3 week history of worsening dyspnea on exertion and generalized weakness. He denies chest pain, orthopnea, cough, fever, chills. He denies N/V. He reports that appx 2-3 weeks ago, he changed began taking Lasix 40mg every other day instead of 80mg every other day. Medications and Allergies Allergies Allergy/AdvReac Type Severity Reaction Status Date / Time No Known Allergies Allergy Verified 02/11/17 07:18 Home Medications Medication Instructions Recorded Confirmed Last Taken Type Aspirin [Adult Low Dose Aspirin EC] 1 tab PO DAILY 10/31/15 01/27/18 1 Day Ago History ~01/26/18 Carvedilol [Coreg] 25 mg PO BID 10/31/15 01/27/18 1 Day Ago History ~01/26/18 Furosemide [Lasix TAB] 40 mg PO QDAY #30 tablet 02/12/17 01/27/18 1 Day Ago Rx ~01/26/18 Spironolactone [Aldactone] 25 mg PO QDAY tablet 02/12/17 01/27/18 1 Day Ago Rx ~01/26/18 Tamsulosin [Flomax] 0.4 mg PO DAILY capsule 02/12/17 01/27/18 1 Day Ago Rx ~01/26/18 Albuterol Sulfate [Ventolin HFA] 2 puff IH Q6H PRN 01/27/18 01/27/18 Unknown History Allopurinol 100 mg PO BID 01/27/18 01/27/18 1 Day Ago History ~01/26/18 Amlodipine Besylate [Norvasc] 10 mg PO QDAY 01/27/18 01/27/18 1 Day Ago History ~01/26/18 AtorvaSTATin [Lipitor] 20 mg PO QHS 01/27/18 01/27/18 1 Day Ago History ~01/26/18 Fluticasone [Flonase] 1 spray NS QDAY 01/27/18 01/27/18 Unknown History Iron Fum,Ps/Folic/Bcomp,C No.9 1 each PO QDAY 01/27/18 01/27/18 1 Day Ago History [Integra Plus Capsule] ~01/26/18 Mometasone/Formoterol [Dulera 100 2 puff IH BID 01/27/18 01/27/18 Unknown History Mcg/5 Mcg Inhaler] Vitamin E 800 unit PO QDAY 01/27/18 01/27/18 1 Day Ago History ~01/26/18 cycloSPORINE [Restasis] 2 each OP QDAY 01/27/18 01/27/18 Unknown History hydrOXYzine HCl [Hydroxyzine HCl] 25 mg PO Q8H PRN 01/27/18 01/27/18 Unknown History Active Meds: Active Medications Acetaminophen (Tylenol) 650 mg PO Q4H PRN PRN Reason: Pain MILD(1-3)/Fever >100.5/LAYNE Last Admin: 01/27/18 00:30 Dose: 650 mg Albuterol (Proventil) 2.5 mg IH Q4HRT [facility] Last Admin: 01/27/18 05:01 Dose: Not Given Aspirin (Halfprin Ec) 81 mg PO DAILY [facility] Dextrose (D50w (25gm) Syringe) 50 ml IV PRN PRN PRN Reason: Hypoglycemia Furosemide (Lasix) 40 mg PO QDAY [facility] Insulin Human Lispro (Humalog) 0 unit SUB-Q [facility]; Protocol Ipratropium [place] (Atrovent) 0.5 mg IH Q4HRT [facility] Last Admin: 01/27/18 05:01 Dose: Not Given Methylprednisolone Sodium Succinate (Solu-Medrol) 60 mg IV Q8H [facility] Ondansetron HCl (Zofran) 4 mg IV Q8H PRN PRN Reason: Nausea And Vomiting Sodium Chloride (Sodium Chloride Flush Syringe 10 Ml) 10 ml IV BID [facility] Sodium Chloride (Sodium Chloride Flush Syringe 10 Ml) 10 ml IV PRN PRN PRN Reason: LINE FLUSH Tamsulosin HCl (Flomax) 0.4 mg PO DAILY [facility] Exam - Vital Signs Vital signs: Vital Signs Temp Pulse Resp BP Pulse Ox 98.1 F 83 18 109/40 96 01/26/18 19:14 01/26/18 19:14 01/26/18 19:14 01/26/18 19:14 01/26/18 19:14 Results - Lab Results 01/27/18 05:42 01/27/18 05:42 Most recent lab results Calcium 8.4 mg/dL (8.4-10.2) 01/27/18 05:42 Assessment and Plan Impression: * Chronic kidney disease * Acute hypoxic respiratory failure secondary to pulmonary edema vs other * Anemia * Leukocytosis, profound * Hyperkalemia, mild * Metabolic acidosis Plan: * Kayexelate 15g ordered * Restrict dietary K intake for now * Hold Aldactone, ARB and KCl supplement for now * Avoid Metformin * Start po bicarbonate * Transfuse pRBC per primary team * Empiric abx per primary team - blood cx pending * Note hematology consulted * Avoid potential nephrotoxins * Strict I/O
[2018-01-27] MEDS: HumaLOG SUB-Q SCH ×4 (09:45→22:37)
[2018-01-27] MEDS ORDERED: LASIX PO SCH (10:00)
[2018-01-27] MEDS ORDERED: KIONEX PO NR (10:21)
[2018-01-27] MEDS: SOLU-Medrol IV SCH ×4 (10:25→23:14)
[2018-01-27 10:46] LABS: Creatine Kinase MB 3.7 ng/mL (0.0-4.0)
[2018-01-27] MEDS: SODIUM CHLORIDE FLUSH SYRINGE 10 ML IV SCH ×3 (11:25→22:41)
[2018-01-27] MEDS: HALFPRIN EC PO SCH (12:30)
[2018-01-27] MEDS: FLOMAX PO SCH (12:30)
[2018-01-27] MEDS: SODIUM BICARBONATE PO SCH ×3 (13:18→22:38)
--- NOTE | 2018-01-27 13:27 | Hem/Onc Consultation ---
History of Present Illness - Reason for Consult Consult date: 01/27/18 anemia Requesting physician: STEVENSON SWANN - History of Present Illness 72-year-old man with a history of CHF, COPD, hypertension, diabetes, sleep apnea comes emergency room with complaints of shortness of breath 1 month, dyspnea and exertion. admitted with SOB anemia hb was 6.8 - PRBC given WBC high - predominant neutrophils pt denies having seen a blood doctor in past. Past History Past Medical History: COPD, diabetes, heart failure, hypertension, other (sleep apnea) Past Surgical History: Other (AICD) Social history: denies: smoking, alcohol abuse Family history: hypertension Medications and Allergies Allergies Allergy/AdvReac Type Severity Reaction Status Date / Time No Known Allergies Allergy Verified 02/11/17 07:18 Home Medications Medication Instructions Recorded Confirmed Last Taken Type Aspirin [Adult Low Dose Aspirin EC] 1 tab PO DAILY 10/31/15 01/27/18 1 Day Ago History ~01/26/18 Carvedilol [Coreg] 25 mg PO BID 10/31/15 01/27/18 1 Day Ago History ~01/26/18 Furosemide [Lasix TAB] 40 mg PO QDAY #30 tablet 02/12/17 01/27/18 1 Day Ago Rx ~01/26/18 Spironolactone [Aldactone] 25 mg PO QDAY tablet 02/12/17 01/27/18 1 Day Ago Rx ~01/26/18 Tamsulosin [Flomax] 0.4 mg PO DAILY capsule 02/12/17 01/27/18 1 Day Ago Rx ~01/26/18 Albuterol Sulfate [Ventolin HFA] 2 puff IH Q6H PRN 01/27/18 01/27/18 Unknown History Allopurinol 100 mg PO BID 01/27/18 01/27/18 1 Day Ago History ~01/26/18 Amlodipine Besylate [Norvasc] 10 mg PO QDAY 01/27/18 01/27/18 1 Day Ago History ~01/26/18 AtorvaSTATin [Lipitor] 20 mg PO QHS 01/27/18 01/27/18 1 Day Ago History ~01/26/18 Fluticasone [Flonase] 1 spray NS QDAY 01/27/18 01/27/18 Unknown History Iron Fum,Ps/Folic/Bcomp,C No.9 1 each PO QDAY 01/27/18 01/27/18 1 Day Ago History [Integra Plus Capsule] ~01/26/18 Mometasone/Formoterol [Dulera 100 2 puff IH BID 01/27/18 01/27/18 Unknown History Mcg/5 Mcg Inhaler] Vitamin E 800 unit PO QDAY 01/27/18 01/27/18 1 Day Ago History ~01/26/18 cycloSPORINE [Restasis] 2 each OP QDAY 01/27/18 01/27/18 Unknown History hydrOXYzine HCl [Hydroxyzine HCl] 25 mg PO Q8H PRN 01/27/18 01/27/18 Unknown History Active Meds: Active Medications Acetaminophen (Tylenol) 650 mg PO Q4H PRN PRN Reason: Pain MILD(1-3)/Fever >100.5/LAYNE Last Admin: 01/27/18 00:30 Dose: 650 mg Albuterol (Proventil) 2.5 mg IH Q4HRT [facility] Last Admin: 01/27/18 08:00 Dose: Not Given Aspirin (Halfprin Ec) 81 mg PO DAILY [facility] Last Admin: 01/27/18 12:30 Dose: 81 mg Dextrose (D50w (25gm) Syringe) 50 ml IV PRN PRN PRN Reason: Hypoglycemia Furosemide (Lasix) 40 mg PO QDAY [facility] Last Admin: 01/27/18 12:30 Dose: 40 mg Insulin Human Lispro (Humalog) 0 unit SUB-Q [facility]; Protocol Last Admin: 01/27/18 09:45 Dose: 4 unit Ipratropium [place] (Atrovent) 0.5 mg IH Q4HRT [facility] Last Admin: 01/27/18 08:00 Dose: Not Given Methylprednisolone Sodium Succinate (Solu-Medrol) 60 mg IV Q8H [facility] Last Admin: 01/27/18 10:25 Dose: 60 mg Ondansetron HCl (Zofran) 4 mg IV Q8H PRN PRN Reason: Nausea And Vomiting Sodium Bicarbonate (Sodium Bicarbonate) 1,300 mg PO BID [facility] Last Admin: 01/27/18 13:18 Dose: Not Given Sodium Chloride (Sodium Chloride Flush Syringe 10 Ml) 10 ml IV BID [facility] Last Admin: 01/27/18 11:25 Dose: 10 ml Sodium Chloride (Sodium Chloride Flush Syringe 10 Ml) 10 ml IV PRN PRN PRN Reason: LINE FLUSH Sodium Polystyrene Sulfonate (Kionex) 15 gm PO ONCE NR Stop: 01/27/18 14:00 Tamsulosin HCl (Flomax) 0.4 mg PO DAILY [facility] Last Admin: 01/27/18 12:30 Dose: 0.4 mg Review of Systems Constitutional: no weight loss, no fever Ears, nose, mouth and throat: no epistaxis Cardiovascular: shortness of breath, leg edema Respiratory: shortness of breath, no cough Gastrointestinal: no vomiting, no diarrhea Genitourinary Male: no hematuria Musculoskeletal: no neck pain Integumentary: no rash Neurological: no seizures Hematologic/Lymphatic: no lymphadenopathy Exam - Constitutional Vitals: Last Vital Signs Temp 97.9 F 01/27/18 08:00 Pulse 68 01/27/18 12:15 Resp 17 01/27/18 12:15 BP 126/54 01/27/18 12:15 Pulse Ox 98 01/27/18 12:00 Pain Intensity (0-10): denies any pain General appearance: mild distress Performance status: 3-limited selfcare - EENT Eyes: PERRL ENT: clear oral mucosa Lymph node exam: negative cervical, negative supraclavicular - Neck Neck: supple - Respiratory Respiratory: bilateral: diminished - Cardiovascular Heart Sounds: Present: S1 & S2 Extremity abnormal: edema - Gastrointestinal General gastrointestinal: Present: soft, non-tender Rectal Exam: deferred - Genitourinary Male genitourinary: Present: deferred - Integumentary Integumentary: warm - Musculoskeletal Musculoskeletal: strength equal bilaterally - Psychiatric Psychiatric: appropriate mood/affect Results - Labs lab Results: Laboratory Results - last 24 hr 01/26/18 01/26/18 01/26/18 19:54 19:54 19:54 WBC 36.5 H RBC 3.04 L Hgb 6.8 L Hct 21.0 L MCV 69 L MCH 22 L MCHC 32 RDW 35.4 H Plt Count 142 Add Manual Diff Complete Total Counted 100 Seg Neutrophils % Diesel Stationary Engineer Seg Neuts % (Manual) 93.0 H Band Neutrophils % 0 Lymphocytes % (Manual) 3.0 L Reactive Lymphs % (Man) 0 Monocytes % (Manual) 4.0 Eosinophils % (Manual) 0 Basophils % (Manual) 0 Metamyelocytes % 0 Myelocytes % 0 Promyelocytes % 0 Blast Cells % 0 Nucleated RBC % Not Reportable Seg Neutrophils # Man 33.9 H Band Neutrophils # 0.0 Lymphocytes # (Manual) 1.1 L Abs React Lymphs (Man) 0.0 Monocytes # (Manual) 1.5 H Eosinophils # (Manual) 0.0 Basophils # (Manual) 0.0 Metamyelocytes # 0.0 Myelocytes # 0.0 Promyelocytes # 0.0 Blast Cells # 0.0 WBC Morphology Not Reportable Hypersegmented Neuts Not Reportable Hyposegmented Neuts Not Reportable Hypogranular Neuts Not Reportable Smudge Cells Not Reportable Toxic Granulation Not Reportable Toxic Vacuolation Not Reportable Dohle Bodies Not Reportable Pelger-Huet Anomaly Not Reportable Dennise Rods Not Reportable Platelet Estimate Not Reportable Clumped Platelets Not Reportable Plt Clumps, EDTA Not Reportable Large Platelets Not Reportable Giant Platelets Not Reportable Platelet Satelliting Not Reportable Plt Morphology Comment Not Reportable RBC Morphology Normal Dimorphic RBCs Not Reportable Polychromasia Not Reportable Hypochromasia Not Reportable Poikilocytosis Not Reportable Anisocytosis Not Reportable Microcytosis Not Reportable Macrocytosis Not Reportable Spherocytes Not Reportable Pappenheimer Bodies Not Reportable Sickle Cells Not Reportable Target Cells Not Reportable Tear Drop Cells Not Reportable Ovalocytes Not Reportable Helmet Cells Not Reportable [place] Bodies Not Reportable Williams Rings Not Reportable Gloria Cells Not Reportable Bite Cells Not Reportable Crenated Cell Not Reportable Elliptocytes Not Reportable Acanthocytes (Spur) Not Reportable Rouleaux Not Reportable Hemoglobin C Crystals Not Reportable Schistocytes Not Reportable Malaria parasites Not Reportable Fernie Bodies Not Reportable Hem Pathologist Commnt Sent to pathology PT 17.5 H INR 1.35 H APTT 53.6 H POC ABG pH POC ABG pCO2 POC ABG pO2 POC ABG HCO3 POC ABG Total CO2 POC ABG O2 Sat POC ABG Base Excess VBG pH FiO2 Sodium 133 L Potassium 4.8 Chloride 104.0 Carbon Dioxide 14 L Anion Gap 20 BUN 62 H Creatinine 2.1 H Estimated GFR 38 BUN/Creatinine Ratio 30 Glucose 168 H POC Glucose Lactic Acid Calcium 8.6 Iron TIBC % Saturation Transferrin Ferritin Total Bilirubin 2.60 H AST 40 ALT 60 H Alkaline Phosphatase 118 Total Creatine Kinase CK-MB (CK-2) CK-MB (CK-2) Rel Index Troponin T 0.030 H NT-Pro-B Natriuret Pep Total Protein 6.5 Albumin 3.4 L Albumin/Globulin Ratio 1.1 Triglycerides 107 Cholesterol 61 LDL Cholesterol Direct 17 L HDL Cholesterol 14 L Cholesterol/HDL Ratio 4.35 Urine Color Urine Turbidity Urine pH Ur Specific [place] Urine Protein Urine Glucose (UA) Urine Ketones Urine Blood Urine Nitrite Urine Bilirubin Urine Urobilinogen Ur Leukocyte Esterase Urine WBC (Auto) Urine RBC (Auto) Urine Bacteria (Auto) Hyaline Casts Urine Mucus Urine Yeast (Budding) Blood Type Antibody Screen Crossmatch 01/26/18 01/26/18 01/26/18 19:54 19:54 21:09 WBC RBC Hgb Hct MCV MCH MCHC RDW Plt Count Add Manual Diff Total Counted Seg Neutrophils % Seg Neuts % (Manual) Band Neutrophils % Lymphocytes % (Manual) Reactive Lymphs % (Man) Monocytes % (Manual) Eosinophils % (Manual) Basophils % (Manual) Metamyelocytes % Myelocytes % Promyelocytes % Blast Cells % Nucleated RBC % Seg Neutrophils # Man Band Neutrophils # Lymphocytes # (Manual) Abs React Lymphs (Man) Monocytes # (Manual) Eosinophils # (Manual) Basophils # (Manual) Metamyelocytes # Myelocytes # Promyelocytes # Blast Cells # WBC Morphology Hypersegmented Neuts Hyposegmented Neuts Hypogranular Neuts Smudge Cells Toxic Granulation Toxic Vacuolation Dohle Bodies Pelger-Huet Anomaly Dennise Rods Platelet Estimate Clumped Platelets Plt Clumps, EDTA Large Platelets Giant Platelets Platelet Satelliting Plt Morphology Comment RBC Morphology Dimorphic RBCs Polychromasia Hypochromasia Poikilocytosis Anisocytosis Microcytosis Macrocytosis Spherocytes Pappenheimer Bodies Sickle Cells Target Cells Tear Drop Cells Ovalocytes Helmet Cells [place] Bodies Williams Rings Gloria Cells Bite Cells Crenated Cell Elliptocytes Acanthocytes (Spur) Rouleaux Hemoglobin C Crystals Schistocytes Malaria parasites Fernie Bodies Hem Pathologist Commnt PT 17.3 H INR 1.34 H APTT 52.4 H POC ABG pH POC ABG pCO2 POC ABG pO2 POC ABG HCO3 POC ABG Total CO2 POC ABG O2 Sat POC ABG Base Excess VBG pH FiO2 Sodium Potassium Chloride Carbon Dioxide Anion Gap BUN Creatinine Estimated GFR BUN/Creatinine Ratio Glucose POC Glucose Lactic Acid Calcium Iron TIBC % Saturation Transferrin Ferritin Total Bilirubin AST ALT Alkaline Phosphatase Total Creatine Kinase 121 CK-MB (CK-2) 1.6 CK-MB (CK-2) Rel Index 1.3 Troponin T NT-Pro-B Natriuret Pep 4260 H Total Protein Albumin Albumin/Globulin Ratio Triglycerides Cholesterol LDL Cholesterol Direct HDL Cholesterol Cholesterol/HDL Ratio Urine Color Urine Turbidity Urine pH Ur Specific [place] Urine Protein Urine Glucose (UA) Urine Ketones Urine Blood Urine Nitrite Urine Bilirubin Urine Urobilinogen Ur Leukocyte Esterase Urine WBC (Auto) Urine RBC (Auto) Urine Bacteria (Auto) Hyaline Casts Urine Mucus Urine Yeast (Budding) Blood Type Antibody Screen Crossmatch 01/26/18 01/26/18 01/26/18 21:09 21:09 21:14 WBC RBC Hgb Hct MCV MCH MCHC RDW Plt Count Add Manual Diff Total Counted Seg Neutrophils % Seg Neuts % (Manual) Band Neutrophils % Lymphocytes % (Manual) Reactive Lymphs % (Man) Monocytes % (Manual) Eosinophils % (Manual) Basophils % (Manual) Metamyelocytes % Myelocytes % Promyelocytes % Blast Cells % Nucleated RBC % Seg Neutrophils # Man Band Neutrophils # Lymphocytes # (Manual) Abs React Lymphs (Man) Monocytes # (Manual) Eosinophils # (Manual) Basophils # (Manual) Metamyelocytes # Myelocytes # Promyelocytes # Blast Cells # WBC Morphology Hypersegmented Neuts Hyposegmented Neuts Hypogranular Neuts Smudge Cells Toxic Granulation Toxic Vacuolation Dohle Bodies Pelger-Huet Anomaly Dennise Rods Platelet Estimate Clumped Platelets Plt Clumps, EDTA Large Platelets Giant Platelets Platelet Satelliting Plt Morphology Comment RBC Morphology Dimorphic RBCs Polychromasia Hypochromasia Poikilocytosis Anisocytosis Microcytosis Macrocytosis Spherocytes Pappenheimer Bodies Sickle Cells Target Cells Tear Drop Cells Ovalocytes Helmet Cells [place] Bodies Williams Rings Gloria Cells Bite Cells Crenated Cell Elliptocytes Acanthocytes (Spur) Rouleaux Hemoglobin C Crystals Schistocytes Malaria parasites Fernie Bodies Hem Pathologist Commnt PT INR APTT POC ABG pH POC ABG pCO2 POC ABG pO2 POC ABG HCO3 POC ABG Total CO2 POC ABG O2 Sat POC ABG Base Excess VBG pH 7.326 FiO2 Sodium Potassium Chloride Carbon Dioxide Anion Gap BUN Creatinine Estimated GFR BUN/Creatinine Ratio Glucose POC Glucose Lactic Acid 0.90 Calcium Iron TIBC % Saturation Transferrin Ferritin Total Bilirubin AST ALT Alkaline Phosphatase Total Creatine Kinase CK-MB (CK-2) CK-MB (CK-2) Rel Index Troponin T NT-Pro-B Natriuret Pep Total Protein Albumin Albumin/Globulin Ratio Triglycerides Cholesterol LDL Cholesterol Direct HDL Cholesterol Cholesterol/HDL Ratio Urine Color Urine Turbidity Urine pH Ur Specific [place] Urine Protein Urine Glucose (UA) Urine Ketones Urine Blood Urine Nitrite Urine Bilirubin Urine Urobilinogen Ur Leukocyte Esterase Urine WBC (Auto) Urine RBC (Auto) Urine Bacteria (Auto) Hyaline Casts Urine Mucus Urine Yeast (Budding) Blood Type A POSITIVE Antibody Screen Negative Crossmatch See Detail 01/26/18 01/26/18 01/26/18 21:55 22:45 22:45 WBC RBC Hgb Hct MCV MCH MCHC RDW Plt Count Add Manual Diff Total Counted Seg Neutrophils % Seg Neuts % (Manual) Band Neutrophils % Lymphocytes % (Manual) Reactive Lymphs % (Man) Monocytes % (Manual) Eosinophils % (Manual) Basophils % (Manual) Metamyelocytes % Myelocytes % Promyelocytes % Blast Cells % Nucleated RBC % Seg Neutrophils # Man Band Neutrophils # Lymphocytes # (Manual) Abs React Lymphs (Man) Monocytes # (Manual) Eosinophils # (Manual) Basophils # (Manual) Metamyelocytes # Myelocytes # Promyelocytes # Blast Cells # WBC Morphology Hypersegmented Neuts Hyposegmented Neuts Hypogranular Neuts Smudge Cells Toxic Granulation Toxic Vacuolation Dohle Bodies Pelger-Huet Anomaly Dennise Rods Platelet Estimate Clumped Platelets Plt Clumps, EDTA Large Platelets Giant Platelets Platelet Satelliting Plt Morphology Comment RBC Morphology Dimorphic RBCs Polychromasia Hypochromasia Poikilocytosis Anisocytosis Microcytosis Macrocytosis Spherocytes Pappenheimer Bodies Sickle Cells Target Cells Tear Drop Cells Ovalocytes Helmet Cells [place] Bodies Williams Rings Isabel Cells Bite Cells Crenated Cell Elliptocytes Acanthocytes (Spur) Rouleaux Hemoglobin C Crystals Schistocytes Malaria parasites Fernie Bodies Hem Pathologist Commnt PT INR APTT POC ABG pH POC ABG pCO2 POC ABG pO2 POC ABG HCO3 POC ABG Total CO2 POC ABG O2 Sat POC ABG Base Excess VBG pH FiO2 Sodium Potassium Chloride Carbon Dioxide Anion Gap BUN Creatinine Estimated GFR BUN/Creatinine Ratio Glucose POC Glucose Lactic Acid 0.90 Calcium Iron TIBC % Saturation Transferrin Ferritin Total Bilirubin AST ALT Alkaline Phosphatase Total Creatine Kinase CK-MB (CK-2) CK-MB (CK-2) Rel Index Troponin T 0.024 NT-Pro-B Natriuret Pep Total Protein Albumin Albumin/Globulin Ratio Triglycerides Cholesterol LDL Cholesterol Direct HDL Cholesterol Cholesterol/HDL Ratio Urine Color [place] Urine Turbidity Cloudy Urine pH 5.0 Ur Specific [place] 1.015 Urine Protein 100 mg/dl Urine Glucose (UA) Neg Urine Ketones Neg Urine Blood Sm Urine Nitrite Neg Urine Bilirubin Neg Urine Urobilinogen 4.0 Ur Leukocyte Esterase Neg Urine WBC (Auto) 2.0 Urine RBC (Auto) 16.0 Urine Bacteria (Auto) 1+ Hyaline Casts 1 Urine Mucus Few Urine Yeast (Budding) 2+ Blood Type Antibody Screen Crossmatch 01/27/18 01/27/18 01/27/18 01:35 05:42 05:42 WBC 30.6 H RBC 3.23 L Hgb 7.6 L Hct 23.2 L MCV 72 L MCH 23 L MCHC 33 RDW 34.8 H Plt Count 160 Add Manual Diff Complete Total Counted 100 Seg Neutrophils % Diesel Stationary Engineer Seg Neuts % (Manual) 87.0 H Band Neutrophils % 10.0 Lymphocytes % (Manual) 3.0 L Reactive Lymphs % (Man) 0 Monocytes % (Manual) 0 Eosinophils % (Manual) 0 Basophils % (Manual) 0 Metamyelocytes % 0 Myelocytes % 0 Promyelocytes % 0 Blast Cells % 0 Nucleated RBC % Not Reportable Seg Neutrophils # Man 26.6 H Band Neutrophils # 3.1 Lymphocytes # (Manual) 0.9 L Abs React Lymphs (Man) 0.0 Monocytes # (Manual) 0.0 Eosinophils # (Manual) 0.0 Basophils # (Manual) 0.0 Metamyelocytes # 0.0 Myelocytes # 0.0 Promyelocytes # 0.0 Blast Cells # 0.0 WBC Morphology Not Reportable Hypersegmented Neuts Not Reportable Hyposegmented Neuts Not Reportable Hypogranular Neuts Not Reportable Smudge Cells Not Reportable Toxic Granulation Not Reportable Toxic Vacuolation Not Reportable Dohle Bodies Not Reportable Pelger-Huet Anomaly Not Reportable Dennise Rods Not Reportable Platelet Estimate Appears normal Clumped Platelets Not Reportable Plt Clumps, EDTA Not Reportable Large Platelets Not Reportable Giant Platelets Not Reportable Platelet Satelliting Not Reportable Plt Morphology Comment Not Reportable RBC Morphology Not Reportable Dimorphic RBCs Not Reportable Polychromasia Not Reportable Hypochromasia 1+ Poikilocytosis 2+ Anisocytosis 2+ Microcytosis 2+ Macrocytosis Not Reportable Spherocytes Not Reportable Pappenheimer Bodies Not Reportable Sickle Cells Not Reportable Target Cells Not Reportable Tear Drop Cells Few Ovalocytes 1+ Helmet Cells Few [place] Bodies Not Reportable Williams Rings Not Reportable [place] Cells Not Reportable Bite Cells Not Reportable Crenated Cell Not Reportable Elliptocytes 2+ Acanthocytes (Spur) Few Rouleaux Not Reportable Hemoglobin C Crystals Not Reportable Schistocytes Few Malaria parasites Not Reportable Fernie Bodies Not Reportable Hem Pathologist Commnt No PT INR APTT POC ABG pH 7.386 POC ABG pCO2 26.3 L POC ABG pO2 253 H POC ABG HCO3 15.8 POC ABG Total CO2 17 POC ABG O2 Sat 100 POC ABG Base Excess -9 VBG pH FiO2 100 Sodium Potassium Chloride Carbon Dioxide Anion Gap BUN Creatinine Estimated GFR BUN/Creatinine Ratio Glucose POC Glucose Lactic Acid Calcium Iron TIBC % Saturation Transferrin Ferritin Total Bilirubin AST ALT Alkaline Phosphatase Total Creatine Kinase CK-MB (CK-2) CK-MB (CK-2) Rel Index Troponin T 0.026 NT-Pro-B Natriuret Pep Total Protein Albumin Albumin/Globulin Ratio Triglycerides Cholesterol LDL Cholesterol Direct HDL Cholesterol Cholesterol/HDL Ratio Urine Color Urine Turbidity Urine pH Ur Specific [place] Urine Protein Urine Glucose (UA) Urine Ketones Urine Blood Urine Nitrite Urine Bilirubin Urine Urobilinogen Ur Leukocyte Esterase Urine WBC (Auto) Urine RBC (Auto) Urine Bacteria (Auto) Hyaline Casts Urine Mucus Urine Yeast (Budding) Blood Type Antibody Screen Crossmatch 01/27/18 01/27/18 01/27/18 05:42 05:42 06:19 WBC RBC Hgb Hct MCV MCH MCHC RDW Plt Count Add Manual Diff Total Counted Seg Neutrophils % Seg Neuts % (Manual) Band Neutrophils % Lymphocytes % (Manual) Reactive Lymphs % (Man) Monocytes % (Manual) Eosinophils % (Manual) Basophils % (Manual) Metamyelocytes % Myelocytes % Promyelocytes % Blast Cells % Nucleated RBC % Seg Neutrophils # Man Band Neutrophils # Lymphocytes # (Manual) Abs React Lymphs (Man) Monocytes # (Manual) Eosinophils # (Manual) Basophils # (Manual) Metamyelocytes # Myelocytes # Promyelocytes # Blast Cells # WBC Morphology Hypersegmented Neuts Hyposegmented Neuts Hypogranular Neuts Smudge Cells Toxic Granulation Toxic Vacuolation Dohle Bodies Pelger-Huet Anomaly Dennise Rods Platelet Estimate Clumped Platelets Plt Clumps, EDTA Large Platelets Giant Platelets Platelet Satelliting Plt Morphology Comment RBC Morphology Dimorphic RBCs Polychromasia Hypochromasia Poikilocytosis Anisocytosis Microcytosis Macrocytosis Spherocytes Pappenheimer Bodies Sickle Cells Target Cells Tear Drop Cells Ovalocytes Helmet Cells [place] Bodies Williams Rings Gloria Cells Bite Cells Crenated Cell Elliptocytes Acanthocytes (Spur) Rouleaux Hemoglobin C Crystals Schistocytes Malaria parasites Fernie Bodies Hem Pathologist Commnt PT INR APTT POC ABG pH POC ABG pCO2 POC ABG pO2 POC ABG HCO3 POC ABG Total CO2 POC ABG O2 Sat POC ABG Base Excess VBG pH FiO2 Sodium 133 L Potassium 5.3 H Chloride 101.6 Carbon Dioxide 13 L Anion Gap 24 BUN 62 H Creatinine 2.4 H Estimated GFR 32 BUN/Creatinine Ratio 26 Glucose 225 H POC Glucose Lactic Acid Calcium 8.4 Iron TIBC % Saturation Transferrin Ferritin 577.2 H Total Bilirubin AST ALT Alkaline Phosphatase Total Creatine Kinase 263 H CK-MB (CK-2) 2.8 CK-MB (CK-2) Rel Index 1.0 Troponin T 0.024 NT-Pro-B Natriuret Pep Total Protein Albumin Albumin/Globulin Ratio Triglycerides Cholesterol LDL Cholesterol Direct HDL Cholesterol Cholesterol/HDL Ratio Urine Color Urine Turbidity Urine pH Ur Specific [place] Urine Protein Urine Glucose (UA) Urine Ketones Urine Blood Urine Nitrite Urine Bilirubin Urine Urobilinogen Ur Leukocyte Esterase Urine WBC (Auto) Urine RBC (Auto) Urine Bacteria (Auto) Hyaline Casts Urine Mucus Urine Yeast (Budding) Blood Type Antibody Screen Crossmatch 01/27/18 01/27/18 01/27/18 06:49 09:29 09:59 WBC RBC Hgb Hct MCV MCH MCHC RDW Plt Count Add Manual Diff Total Counted Seg Neutrophils % Seg Neuts % (Manual) Band Neutrophils % Lymphocytes % (Manual) Reactive Lymphs % (Man) Monocytes % (Manual) Eosinophils % (Manual) Basophils % (Manual) Metamyelocytes % Myelocytes % Promyelocytes % Blast Cells % Nucleated RBC % Seg Neutrophils # Man Band Neutrophils # Lymphocytes # (Manual) Abs React Lymphs (Man) Monocytes # (Manual) Eosinophils # (Manual) Basophils # (Manual) Metamyelocytes # Myelocytes # Promyelocytes # Blast Cells # WBC Morphology Hypersegmented Neuts Hyposegmented Neuts Hypogranular Neuts Smudge Cells Toxic Granulation Toxic Vacuolation Dohle Bodies Pelger-Huet Anomaly Dennise Rods Platelet Estimate Clumped Platelets Plt Clumps, EDTA Large Platelets Giant Platelets Platelet Satelliting Plt Morphology Comment RBC Morphology Dimorphic RBCs Polychromasia Hypochromasia Poikilocytosis Anisocytosis Microcytosis Macrocytosis Spherocytes Pappenheimer Bodies Sickle Cells Target Cells Tear Drop Cells Ovalocytes Helmet Cells [place] Bodies Williams Rings Gloria Cells Bite Cells Crenated Cell Elliptocytes Acanthocytes (Spur) Rouleaux Hemoglobin C Crystals Schistocytes Malaria parasites Fernie Bodies Hem Pathologist Commnt PT INR APTT POC ABG pH POC ABG pCO2 POC ABG pO2 POC ABG HCO3 POC ABG Total CO2 POC ABG O2 Sat POC ABG Base Excess VBG pH FiO2 Sodium Potassium Chloride Carbon Dioxide Anion Gap BUN Creatinine Estimated GFR BUN/Creatinine Ratio Glucose POC Glucose 250 H Lactic Acid Calcium Iron 21 L TIBC 215 L % Saturation 9.77 Transferrin 158 L Ferritin Total Bilirubin AST ALT Alkaline Phosphatase Total Creatine Kinase 347 H CK-MB (CK-2) 3.7 CK-MB (CK-2) Rel Index 1.0 Troponin T 0.015 NT-Pro-B Natriuret Pep Total Protein Albumin Albumin/Globulin Ratio Triglycerides Cholesterol LDL Cholesterol Direct HDL Cholesterol Cholesterol/HDL Ratio Urine Color Urine Turbidity Urine pH Ur Specific [place] Urine Protein Urine Glucose (UA) Urine Ketones Urine Blood Urine Nitrite Urine Bilirubin Urine Urobilinogen Ur Leukocyte Esterase Urine WBC (Auto) Urine RBC (Auto) Urine Bacteria (Auto) Hyaline Casts Urine Mucus Urine Yeast (Budding) Blood Type Antibody Screen Crossmatch - Imaging and cardiology Chest x-ray: report reviewed Assessment and Plan # anemia - MCV low - 1 unit was given but he had SOB as per RN - hence stopped. this may be a marrow production issues or blood loss. # Leukocytosis - predominant neutrophils - no mention of blasts # CHF # COPD # DM # HTN will do def work up and smear and follow - - d/w Hematology lab - Patient Problems (1) Anemia Current Visit: Yes Status: Acute Qualifiers: Anemia type: other cause (2) Leukocytosis Current Visit: Yes Status: Acute Qualifiers: Leukocytosis type: other Qualified Code(s): D72.828 - Other elevated white blood cell count
--- NOTE | 2018-01-27 15:13 | Progress Note ---
Assessment and Plan Assessment and plan: --Acute on chronic systolic congestive heart failure; ejection fraction 20% Continue anti-failure medications, input output monitoring, cardiology consult --Nonischemic cardiomyopathy; continue anti-failure medications, low sodium diet Fluids friction, input output monitoring --Severe leukocytosis; possible leukemia Closely monitor, supportive care, hematology evaluation --Anemia; requiring blood transfusion, stool for occult blood Hematology evaluation, possible bone marrow if needed Patient received 1 unit of blood transfusion, closely monitor H&H --Symptomatic anemia; symptoms may improve posttransfusion Supportive care --Hypertension; moderate control, continue current antihypertensives When necessary medications --Acute kidney injury; vasomotor nephropathy/secondary to ATN Closely monitor renal function, avoid nephrotoxin, nephro consult if needed --Type 2 diabetes mellitus; Accu-Chek sliding scale coverage and ADA diet Insulin as needed --Obstructive sleep apnea; CPAP BiPAP at night --DVT prophylaxis; Lovenox Closely monitor the patient and adjust the management as needed Plan of care reviewed with the patient multiple family members at the bedside and his nurse History Interval history: 72-year-old male patient with multiple medical problems was admitted through emergency room with worsening shortness of breath; Today patient feels slightly better, on nasal cannula oxygen Multiple family members at the bedside Patient denies any chest pain, complains of mild shortness of breath Vital signs reviewed Hospitalist Physical - Constitutional Vitals: Temp Pulse Resp BP Pulse Ox 97.9 F 68 17 126/54 98 01/27/18 08:00 01/27/18 12:15 01/27/18 12:15 01/27/18 12:15 01/27/18 12:00 General appearance: Present: no acute distress, well-nourished - EENT Eyes: Present: PERRL, EOM intact - Neck Neck: Present: supple, normal ROM - Respiratory Respiratory effort: normal Respiratory: bilateral: diminished, wheezing, negative: rales, rhonchi - Cardiovascular Rhythm: regular Heart Sounds: Present: S1 & S2 - Extremities Extremities: no ischemia, No edema - Abdominal General gastrointestinal: soft, non-tender, non-distended, normal bowel sounds - Integumentary Integumentary: Present: clear, warm - Psychiatric Psychiatric: appropriate mood/affect, cooperative - Neurologic Neurologic: CNII-XII intact, moves all extremities Results - Labs CBC & Chem 7: 01/27/18 05:42 01/27/18 05:42 Labs: Laboratory Last Values WBC 30.6 K/mm3 (4.5-11.0) H 01/27/18 05:42 RBC 3.23 M/mm3 (3.65-5.03) L 01/27/18 05:42 Hgb 7.6 gm/dl (11.8-15.2) L 01/27/18 05:42 Hct 23.2 % (35.5-45.6) L 01/27/18 05:42 MCV 72 fl (84-94) L 01/27/18 05:42 MCH 23 pg (28-32) L 01/27/18 05:42 MCHC 33 % (32-34) 01/27/18 05:42 RDW 34.8 % (13.2-15.2) H 01/27/18 05:42 Plt Count 160 K/mm3 (140-440) 01/27/18 05:42 Add Manual Diff Complete 01/27/18 05:42 Total Counted 100 01/27/18 05:42 Seg Neutrophils % Well Drill Operator Cable Tool 01/27/18 05:42 Seg Neuts % (Manual) 87.0 % (40.0-70.0) H 01/27/18 05:42 Band Neutrophils % 10.0 % 01/27/18 05:42 Lymphocytes % (Manual) 3.0 % (13.4-35.0) L 01/27/18 05:42 Reactive Lymphs % (Man) 0 % 01/27/18 05:42 Monocytes % (Manual) 0 % (0.0-7.3) 01/27/18 05:42 Eosinophils % (Manual) 0 % (0.0-4.3) 01/27/18 05:42 Basophils % (Manual) 0 % (0.0-1.8) 01/27/18 05:42 Metamyelocytes % 0 % 01/27/18 05:42 Myelocytes % 0 % 01/27/18 05:42 Promyelocytes % 0 % 01/27/18 05:42 Blast Cells % 0 % 01/27/18 05:42 Nucleated RBC % Not Reportable 01/27/18 05:42 Seg Neutrophils # Man 26.6 K/mm3 (1.8-7.7) H 01/27/18 05:42 Band Neutrophils # 3.1 K/mm3 01/27/18 05:42 Lymphocytes # (Manual) 0.9 K/mm3 (1.2-5.4) L 01/27/18 05:42 Abs React Lymphs (Man) 0.0 K/mm3 01/27/18 05:42 Monocytes # (Manual) 0.0 K/mm3 (0.0-0.8) 01/27/18 05:42 Eosinophils # (Manual) 0.0 K/mm3 (0.0-0.4) 01/27/18 05:42 Basophils # (Manual) 0.0 K/mm3 (0.0-0.1) 01/27/18 05:42 Metamyelocytes # 0.0 K/mm3 01/27/18 05:42 Myelocytes # 0.0 K/mm3 01/27/18 05:42 Promyelocytes # 0.0 K/mm3 01/27/18 05:42 Blast Cells # 0.0 K/mm3 01/27/18 05:42 Pathologist Review 01/26/18 19:54 WBC Morphology Not Reportable 01/27/18 05:42 Hypersegmented Neuts Not Reportable 01/27/18 05:42 Hyposegmented Neuts Not Reportable 01/27/18 05:42 Hypogranular Neuts Not Reportable 01/27/18 05:42 Smudge Cells Not Reportable 01/27/18 05:42 Toxic Granulation Not Reportable 01/27/18 05:42 Toxic Vacuolation Not Reportable 01/27/18 05:42 Dohle Bodies Not Reportable 01/27/18 05:42 Pelger-Huet Anomaly Not Reportable 01/27/18 05:42 Dennise Rods Not Reportable 01/27/18 05:42 Platelet Estimate Appears normal 01/27/18 05:42 Clumped Platelets Not Reportable 01/27/18 05:42 Plt Clumps, EDTA Not Reportable 01/27/18 05:42 Large Platelets Not Reportable 01/27/18 05:42 Giant Platelets Not Reportable 01/27/18 05:42 Platelet Satelliting Not Reportable 01/27/18 05:42 Plt Morphology Comment Not Reportable 01/27/18 05:42 RBC Morphology Not Reportable 01/27/18 05:42 Dimorphic RBCs Not Reportable 01/27/18 05:42 Polychromasia Not Reportable 01/27/18 05:42 Hypochromasia 1+ 01/27/18 05:42 Poikilocytosis 2+ 01/27/18 05:42 Anisocytosis 2+ 01/27/18 05:42 Microcytosis 2+ 01/27/18 05:42 Macrocytosis Not Reportable 01/27/18 05:42 Spherocytes Not Reportable 01/27/18 05:42 Pappenheimer Bodies Not Reportable 01/27/18 05:42 Sickle Cells Not Reportable 01/27/18 05:42 Target Cells Not Reportable 01/27/18 05:42 Tear Drop Cells Few 01/27/18 05:42 Ovalocytes 1+ 01/27/18 05:42 Helmet Cells Few 01/27/18 05:42 [place] Bodies Not Reportable 01/27/18 05:42 [place] Rings Not Reportable 01/27/18 05:42 [place] Cells Not Reportable 01/27/18 05:42 Bite Cells Not Reportable 01/27/18 05:42 Crenated Cell Not Reportable 01/27/18 05:42 Elliptocytes 2+ 01/27/18 05:42 Acanthocytes (Spur) Few 01/27/18 05:42 Rouleaux Not Reportable 01/27/18 05:42 Hemoglobin C Crystals Not Reportable 01/27/18 05:42 Schistocytes Few 01/27/18 05:42 Malaria parasites Not Reportable 01/27/18 05:42 Fernie Bodies Not Reportable 01/27/18 05:42 Hem Pathologist Commnt No 01/27/18 05:42 PT 17.3 Sec. (12.2-14.9) H 01/26/18 21:09 INR 1.34 (0.87-1.13) H 01/26/18 21:09 APTT 52.4 Sec. (24.2-36.6) H 01/26/18 21:09 POC ABG pH 7.386 (7.35-7.45) 01/27/18 01:35 POC ABG pCO2 26.3 (35-45) L 01/27/18 01:35 POC ABG pO2 253 (80-105) H 01/27/18 01:35 POC ABG HCO3 15.8 01/27/18 01:35 POC ABG Total CO2 17 01/27/18 01:35 POC ABG O2 Sat 100 01/27/18 01:35 POC ABG Base Excess -9 01/27/18 01:35 VBG pH 7.326 (7.320-7.420) 01/26/18 21:09 FiO2 100 % 01/27/18 01:35 Sodium 133 mmol/L (137-145) L 01/27/18 05:42 Potassium 5.3 mmol/L (3.6-5.0) H 01/27/18 05:42 Chloride 101.6 mmol/L (98-107) 01/27/18 05:42 Carbon Dioxide 13 mmol/L (22-30) L 01/27/18 05:42 Anion Gap 24 mmol/L 01/27/18 05:42 BUN 62 mg/dL (9-20) H 01/27/18 05:42 Creatinine 2.4 mg/dL (0.8-1.5) H 01/27/18 05:42 Estimated GFR 32 ml/min 01/27/18 05:42 BUN/Creatinine Ratio 26 % 01/27/18 05:42 Glucose 225 mg/dL (75-100) H 01/27/18 05:42 POC Glucose 392 (70-105) H 01/27/18 13:01 Lactic Acid 0.90 mmol/L (0.7-2.0) 01/26/18 22:45 Calcium 8.4 mg/dL (8.4-10.2) 01/27/18 05:42 Iron 21 ug/dL (49-181) L 01/27/18 06:49 TIBC 215 mcg/dL (250-450) L 01/27/18 06:49 % Saturation 9.77 % 01/27/18 06:49 Transferrin 158 mg/dl (180-329) L 01/27/18 06:49 Ferritin 577.2 ng/mL (13.0-400.0) H 01/27/18 06:19 Total Bilirubin 2.60 mg/dL (0.1-1.2) H 01/26/18 19:54 AST 40 units/L (5-40) 01/26/18 19:54 ALT 60 units/L (7-56) H 01/26/18 19:54 Alkaline Phosphatase 118 units/L (35-129) 01/26/18 19:54 Total Creatine Kinase 347 units/L (55-170) H 01/27/18 09:59 CK-MB (CK-2) 3.7 ng/mL (0.0-4.0) 01/27/18 09:59 CK-MB (CK-2) Rel Index 1.0 (0-4) 01/27/18 09:59 Troponin T 0.015 ng/mL (0.00-0.029) 01/27/18 09:59 NT-Pro-B Natriuret Pep 4260 pg/mL (0-900) H 01/26/18 19:54 Total Protein 6.5 g/dL (6.3-8.2) 01/26/18 19:54 Albumin 3.4 g/dL (3.9-5) L 01/26/18 19:54 Albumin/Globulin Ratio 1.1 % 01/26/18 19:54 Triglycerides 107 mg/dL (2-149) 01/26/18 19:54 Cholesterol 61 mg/dL (50-199) 01/26/18 19:54 LDL Cholesterol Direct 17 mg/dL (50-130) L 01/26/18 19:54 HDL Cholesterol 14 mg/dL (40-59) L 01/26/18 19:54 Cholesterol/HDL Ratio 4.35 % 01/26/18 19:54 Urine Color [place] (Yellow) 01/26/18 21:55 Urine Turbidity Cloudy (Clear) 01/26/18 21:55 Urine pH 5.0 (5.0-7.0) 01/26/18 21:55 Ur Specific [place]kins 1.015 (1.003-1.030) 01/26/18 21:55 Urine Protein 100 mg/dl mg/dL (Negative) 01/26/18 21:55 Urine Glucose (UA) Neg mg/dL (Negative) 01/26/18 21:55 Urine Ketones Neg mg/dL (Negative) 01/26/18 21:55 Urine Blood Sm (Negative) 01/26/18 21:55 Urine Nitrite Neg (Negative) 01/26/18 21:55 Urine Bilirubin Neg (Negative) 01/26/18 21:55 Urine Urobilinogen 4.0 mg/dL (<2.0) 01/26/18 21:55 Ur Leukocyte Esterase Neg (Negative) 01/26/18 21:55 Urine WBC (Auto) 2.0 /HPF (0.0-6.0) 01/26/18 21:55 Urine RBC (Auto) 16.0 /HPF (0.0-6.0) 01/26/18 21:55 Urine Bacteria (Auto) 1+ /HPF (Negative) 01/26/18 21:55 Hyaline Casts 1 /LPF 01/26/18 21:55 Urine Mucus Few /HPF 01/26/18 21:55 Urine Yeast (Budding) 2+ /HPF 01/26/18 21:55 Blood Type A POSITIVE 01/26/18 21:14 Antibody Screen Negative 01/26/18 21:14 Crossmatch See Detail 01/26/18 21:14
[2018-01-27] MEDS ORDERED: ATARAX PO PRN (17:23)
[2018-01-27] MEDS ORDERED: PROAIR IH PRN (19:21)
[2018-01-27] MEDS ORDERED: LANTUS SUB-Q ONE (21:20)
[2018-01-27] MEDS: COREG PO SCH (22:40)
[2018-01-27] MEDS: ZYLOPRIM PO SCH (22:43)
[2018-01-28] MEDS ORDERED: PROVENTIL IH PRN (00:53)
[2018-01-28] MEDS: PROVENTIL IH SCH (00:58)
[2018-01-28] MEDS: ATROVENT IH SCH (00:58)
[2018-01-28 05:49] LABS: Hematocrit 25.4 % (35.5-45.6); Hemoglobin 8.2 gm/dl (11.8-15.2); Mean Corpuscular HGB Conc 33 % (32-34); Mean Corpuscular Volume 70 fl (84-94); Red Blood Count 3.61 M/mm3 (3.65-5.03)
[2018-01-28 05:58] LABS: Red Cell Distribution Width 34.7 % (13.2-15.2)
[2018-01-28 05:59] LABS: Mean Corpuscular Hemoglobin 23 pg (28-32); Platelet Count 157 K/mm3 (140-440)
[2018-01-28 06:19] LABS: Albumin 3.2 g/dL (3.9-5); Calcium 8.9 mg/dL (8.4-10.2)
[2018-01-28 06:49] LABS: Anisocytosis 2+; Band Neutrophils # (Manual) 1.5 K/mm3; Basophils % (Manual) 0 % (0.0-1.8); Eosinophils % (Manual) 0 % (0.0-4.3); Monocytes % (Manual) 0.5 % (0.0-7.3); Total Cells Counted 200
[2018-01-28 06:50] LABS: Hypochromasia 1+; Platelet Estimate Consistent w Auto; Tear Drop Cells 2+
[2018-01-28] MEDS: HumaLOG SUB-Q SCH ×4 (07:53→21:43)
[2018-01-28] MEDS: DUONEB *Not for PRN Use IH SCH ×3 (08:03→19:27)
--- NOTE | 2018-01-28 09:20 | Progress Note ---
Assessment and Plan Impression: * Chronic kidney disease * Acute hypoxic respiratory failure secondary to pulmonary edema vs other * Anemia * Leukocytosis * Hyperkalemia, mild * Metabolic acidosis Plan: * Diuresis prn * Cont po bicarbonate * Transfuse pRBC per primary team * Empiric abx per primary team - blood cx pending * Hematology recommendations noted * Avoid potential nephrotoxins * Strict I/O Subjective Date of service: 01/28/18 Interval history: Attempted to see patient x 2 - 1st visit, answered phone call; 2nd visit, continues on phone Objective - Vital Signs Vital signs: Vital Signs - 12hr 01/27/18 01/27/18 01/27/18 22:00 22:04 23:04 Temperature Pulse Rate Pulse Rate [ 73 Anterior Bilateral Throughout] Respiratory 22 Rate Respiratory 18 Rate [Anterior Bilateral Throughout] Blood Pressure Blood Pressure [Left] O2 Sat by Pulse 98 Oximetry 01/27/18 01/28/18 01/28/18 23:49 00:28 05:20 Temperature 98.9 F 98.6 F Pulse Rate 66 69 72 Pulse Rate [ Anterior Bilateral Throughout] Respiratory 20 18 Rate Respiratory Rate [Anterior Bilateral Throughout] Blood Pressure 127/57 Blood Pressure 127/57 108/42 [Left] O2 Sat by Pulse 99 98 98 Oximetry 01/28/18 01/28/18 01/28/18 07:51 08:03 08:07 Temperature 97.2 F L Pulse Rate 65 Pulse Rate [ 72 Anterior Bilateral Throughout] Respiratory 18 Rate Respiratory 18 Rate [Anterior Bilateral Throughout] Blood Pressure 129/60 Blood Pressure [Left] O2 Sat by Pulse 99 98 Oximetry - Lab 01/29/18 05:12 01/29/18 05:12 Most recent lab results Calcium 8.9 mg/dL (8.4-10.2) 01/28/18 05:13 Phosphorus 2.70 mg/dL (2.5-4.5) 01/28/18 05:13 Magnesium 1.80 mg/dL (1.7-2.3) 01/28/18 05:13
[2018-01-28] MEDS ORDERED: CYCLOSPORINE OP SCH (10:00)
[2018-01-28] MEDS ORDERED: ALDACTONE PO SCH (10:00)
[2018-01-28] MEDS: COREG PO SCH ×2 (10:07→21:42)
[2018-01-28] MEDS: FLOMAX PO SCH (10:07)
[2018-01-28] MEDS: ZYLOPRIM PO SCH ×2 (10:07→21:42)
[2018-01-28] MEDS: SODIUM BICARBONATE PO SCH ×2 (10:07→21:43)
[2018-01-28] MEDS: SOLU-Medrol IV SCH ×3 (10:07→17:55)
[2018-01-28] MEDS: HALFPRIN EC PO SCH (10:07)
[2018-01-28] MEDS: FLONASE NS SCH (10:09)
[2018-01-28] MEDS: SODIUM CHLORIDE FLUSH SYRINGE 10 ML IV SCH ×2 (10:09→21:43)
--- NOTE | 2018-01-28 12:27 | Hem/Onc Progress Note ---
Assessment and Plan # anemia - MCV low - 1 unit PRBC was ordered. anemia may be a marrow production issues or blood loss. b12, folate, ferritin - normal LDH 200s # Leukocytosis - predominant neutrophils - no mention of blasts d/w pathology reg smear. d/w pt reg option of BMBX - as some of the numbers are better - pt prefers to wait # h/o CHF # h/o COPD # h/o DM # h/o HTN - Patient Problems (1) Anemia Current Visit: Yes Status: Acute Qualifiers: Anemia type: other cause (2) Leukocytosis Current Visit: Yes Status: Acute Qualifiers: Leukocytosis type: other Qualified Code(s): D72.828 - Other elevated white blood cell count Subjective Date of service: 01/28/18 Principal diagnosis: anemia and leukocytosis Interval history: pt says he is feeling better. he is eating and breathing better. no bleeding Objective - Constitutional Vitals: Last Vital Signs Temp 97.2 F L 01/28/18 07:51 Pulse 74 01/28/18 08:13 Resp 18 01/28/18 08:13 BP 129/60 01/28/18 07:51 Pulse Ox 98 01/28/18 08:07 Pain Intensity (0-10): denies any pain General appearance: no acute distress Performance status: 3-limited selfcare - EENT Eyes: PERRL ENT: clear oral mucosa Lymph node exam: bilateral cervical, bilateral supraclavicular - Neck Neck: supple - Respiratory Respiratory effort: Positive: normal Respiratory: bilateral: CTA - Cardiovascular Heart Sounds: Present: S1 & S2 Extremity abnormal: edema - Gastrointestinal General gastrointestinal: Present: soft, non-tender Rectal Exam: deferred - Genitourinary Male genitourinary: Present: deferred - Integumentary Integumentary: warm - Musculoskeletal Musculoskeletal: strength equal bilaterally - Neurologic Neurologic: moves all extremities - Psychiatric Psychiatric: appropriate mood/affect - Allied health notes Allied health notes reviewed: nursing - Labs Lab Results: Laboratory Results - last 24 hr 01/26/18 01/27/18 01/27/18 19:54 13:01 16:31 WBC RBC Hgb Hct MCV MCH MCHC RDW Plt Count 142 Add Manual Diff Total Counted Seg Neutrophils % Seg Neuts % (Manual) Band Neutrophils % Lymphocytes % (Manual) Reactive Lymphs % (Man) Monocytes % (Manual) Eosinophils % (Manual) Basophils % (Manual) Metamyelocytes % Myelocytes % Promyelocytes % Blast Cells % Nucleated RBC % Seg Neutrophils # Man Band Neutrophils # Lymphocytes # (Manual) Abs React Lymphs (Man) Monocytes # (Manual) Eosinophils # (Manual) Basophils # (Manual) Metamyelocytes # Myelocytes # Promyelocytes # Blast Cells # Pathologist Review WBC Morphology Hypersegmented Neuts Hyposegmented Neuts Hypogranular Neuts Smudge Cells Toxic Granulation Toxic Vacuolation Dohle Bodies Pelger-Huet Anomaly Dennise Rods Platelet Estimate Clumped Platelets Plt Clumps, EDTA Large Platelets Giant Platelets Platelet Satelliting Plt Morphology Comment RBC Morphology Dimorphic RBCs Polychromasia Hypochromasia Poikilocytosis Anisocytosis Microcytosis Macrocytosis Spherocytes Pappenheimer Bodies Sickle Cells Target Cells Tear Drop Cells Ovalocytes Helmet Cells [place] Bodies [place] Rings Gloria Cells Bite Cells Crenated Cell Elliptocytes Acanthocytes (Spur) Rouleaux Hemoglobin C Crystals Schistocytes Malaria parasites Fernie Bodies Hem Pathologist Commnt Sodium Potassium Chloride Carbon Dioxide Anion Gap BUN Creatinine Estimated GFR BUN/Creatinine Ratio Glucose POC Glucose 392 H 352 H Calcium Phosphorus Magnesium Iron TIBC Ferritin Total Bilirubin AST ALT Alkaline Phosphatase Total Protein Albumin Albumin/Globulin Ratio Vitamin B12 Folate 01/27/18 01/28/18 01/28/18 21:11 05:13 05:13 WBC RBC Hgb Hct MCV MCH MCHC RDW Plt Count Add Manual Diff Total Counted Seg Neutrophils % Seg Neuts % (Manual) Band Neutrophils % Lymphocytes % (Manual) Reactive Lymphs % (Man) Monocytes % (Manual) Eosinophils % (Manual) Basophils % (Manual) Metamyelocytes % Myelocytes % Promyelocytes % Blast Cells % Nucleated RBC % Seg Neutrophils # Man Band Neutrophils # Lymphocytes # (Manual) Abs React Lymphs (Man) Monocytes # (Manual) Eosinophils # (Manual) Basophils # (Manual) Metamyelocytes # Myelocytes # Promyelocytes # Blast Cells # Pathologist Review WBC Morphology Hypersegmented Neuts Hyposegmented Neuts Hypogranular Neuts Smudge Cells Toxic Granulation Toxic Vacuolation Dohle Bodies Pelger-Huet Anomaly Dennise Rods Platelet Estimate Clumped Platelets Plt Clumps, EDTA Large Platelets Giant Platelets Platelet Satelliting Plt Morphology Comment RBC Morphology Dimorphic RBCs Polychromasia Hypochromasia Poikilocytosis Anisocytosis Microcytosis Macrocytosis Spherocytes Pappenheimer Bodies Sickle Cells Target Cells Tear Drop Cells Ovalocytes Helmet Cells [place] Bodies [place] Rings Gloria Cells Bite Cells Crenated Cell Elliptocytes Acanthocytes (Spur) Rouleaux Hemoglobin C Crystals Schistocytes Malaria parasites Fernie Bodies Hem Pathologist Commnt Sodium 130 L Potassium 4.3 Chloride 100.0 Carbon Dioxide 17 L Anion Gap 17 BUN 73 H Creatinine 1.9 H Estimated GFR 42 BUN/Creatinine Ratio 38 Glucose 290 H POC Glucose 428 H Calcium 8.9 Phosphorus 2.70 Magnesium 1.80 Iron 74 TIBC 194 L Ferritin 675.1 H Total Bilirubin 1.20 AST 30 ALT 50 Alkaline Phosphatase 146 H Total Protein 6.6 Albumin 3.2 L Albumin/Globulin Ratio 0.9 Vitamin B12 Folate 01/28/18 01/28/18 01/28/18 05:13 05:13 05:13 WBC 26.7 H RBC 3.61 L Hgb 8.2 L Hct 25.4 L MCV 70 L MCH 23 L MCHC 33 RDW 34.7 H Plt Count 157 Add Manual Diff Complete Total Counted 200 Seg Neutrophils % Big Data Admin Seg Neuts % (Manual) 89.0 H Band Neutrophils % 5.5 Lymphocytes % (Manual) 5.0 L Reactive Lymphs % (Man) 0 Monocytes % (Manual) 0.5 Eosinophils % (Manual) 0 Basophils % (Manual) 0 Metamyelocytes % 0 Myelocytes % 0 Promyelocytes % 0 Blast Cells % 0 Nucleated RBC % Not Reportable Seg Neutrophils # Man 23.8 H Band Neutrophils # 1.5 Lymphocytes # (Manual) 1.3 Abs React Lymphs (Man) 0.0 Monocytes # (Manual) 0.1 Eosinophils # (Manual) 0.0 Basophils # (Manual) 0.0 Metamyelocytes # 0.0 Myelocytes # 0.0 Promyelocytes # 0.0 Blast Cells # 0.0 Pathologist Review WBC Morphology Not Reportable Hypersegmented Neuts Not Reportable Hyposegmented Neuts Not Reportable Hypogranular Neuts Not Reportable Smudge Cells Not Reportable Toxic Granulation Not Reportable Toxic Vacuolation Not Reportable Dohle Bodies Not Reportable Pelger-Huet Anomaly Not Reportable Dennise Rods Not Reportable Platelet Estimate Consistent w auto Clumped Platelets Not Reportable Plt Clumps, EDTA Not Reportable Large Platelets Not Reportable Giant Platelets Not Reportable Platelet Satelliting Not Reportable Plt Morphology Comment Not Reportable RBC Morphology Not Reportable Dimorphic RBCs Not Reportable Polychromasia Not Reportable Hypochromasia 1+ Poikilocytosis Not Reportable Anisocytosis 2+ Microcytosis 2+ Macrocytosis Not Reportable Spherocytes Not Reportable Pappenheimer Bodies Not Reportable Sickle Cells Not Reportable Target Cells Not Reportable Tear Drop Cells 2+ Ovalocytes Not Reportable Helmet Cells Not Reportable [place] Bodies Not Reportable [place] Rings Not Reportable [place] Cells Not Reportable Bite Cells Not Reportable Crenated Cell Not Reportable Elliptocytes 2+ Acanthocytes (Spur) Not Reportable Rouleaux Not Reportable Hemoglobin C Crystals Not Reportable Schistocytes Not Reportable Malaria parasites Not Reportable Fernie Bodies Not Reportable Hem Pathologist Commnt No Sodium Potassium Chloride Carbon Dioxide Anion Gap BUN Creatinine Estimated GFR BUN/Creatinine Ratio Glucose POC Glucose Calcium Phosphorus Magnesium Iron TIBC Ferritin Total Bilirubin AST ALT Alkaline Phosphatase Total Protein Albumin Albumin/Globulin Ratio Vitamin B12 > 2000 H Folate 16.74 01/28/18 06:58 WBC RBC Hgb Hct MCV MCH MCHC RDW Plt Count Add Manual Diff Total Counted Seg Neutrophils % Seg Neuts % (Manual) Band Neutrophils % Lymphocytes % (Manual) Reactive Lymphs % (Man) Monocytes % (Manual) Eosinophils % (Manual) Basophils % (Manual) Metamyelocytes % Myelocytes % Promyelocytes % Blast Cells % Nucleated RBC % Seg Neutrophils # Man Band Neutrophils # Lymphocytes # (Manual) Abs React Lymphs (Man) Monocytes # (Manual) Eosinophils # (Manual) Basophils # (Manual) Metamyelocytes # Myelocytes # Promyelocytes # Blast Cells # Pathologist Review WBC Morphology Hypersegmented Neuts Hyposegmented Neuts Hypogranular Neuts Smudge Cells Toxic Granulation Toxic Vacuolation Dohle Bodies Pelger-Huet Anomaly Dennise Rods Platelet Estimate Clumped Platelets Plt Clumps, EDTA Large Platelets Giant Platelets Platelet Satelliting Plt Morphology Comment RBC Morphology Dimorphic RBCs Polychromasia Hypochromasia Poikilocytosis Anisocytosis Microcytosis Macrocytosis Spherocytes Pappenheimer Bodies Sickle Cells Target Cells Tear Drop Cells Ovalocytes Helmet Cells [place] Bodies [place] Rings Gloria Cells Bite Cells Crenated Cell Elliptocytes Acanthocytes (Spur) Rouleaux Hemoglobin C Crystals Schistocytes Malaria parasites Fernie Bodies Hem Pathologist Commnt Sodium Potassium Chloride Carbon Dioxide Anion Gap BUN Creatinine Estimated GFR BUN/Creatinine Ratio Glucose POC Glucose 294 H Calcium Phosphorus Magnesium Iron TIBC Ferritin Total Bilirubin AST ALT Alkaline Phosphatase Total Protein Albumin Albumin/Globulin Ratio Vitamin B12 Folate
--- NOTE | 2018-01-28 19:49 | Progress Note ---
Assessment and Plan Assessment and plan: --Acute on chronic systolic congestive heart failure; ejection fraction 20% Continue anti-failure medications, input output monitoring, cardiology consult --Nonischemic cardiomyopathy; continue anti-failure medications, low sodium diet Fluids friction, input output monitoring --Severe leukocytosis; possible leukemia Closely monitor, supportive care, hematology evaluation --Anemia; requiring blood transfusion, stool for occult blood Hematology evaluation, possible bone marrow if needed Patient received 1 unit of blood transfusion, closely monitor H&H --Symptomatic anemia; symptoms may improve posttransfusion Supportive care --Hypertension; moderate control, continue current antihypertensives When necessary medications --Acute kidney injury; vasomotor nephropathy/secondary to ATN Closely monitor renal function, avoid nephrotoxin, nephro consult if needed --Type 2 diabetes mellitus; Accu-Chek sliding scale coverage and ADA diet Insulin as needed --Obstructive sleep apnea; CPAP BiPAP at night --DVT prophylaxis; Lovenox Closely monitor the patient and adjust the management as needed Plan of care reviewed with the patient multiple family members at the bedside and his nurse History Interval history: Patient seen and examined medical records reviewed Uncontrolled blood sugars, noncompliant with diet Patient's family brings a lot of outside food Patient feels better no new complaints Hospitalist Physical - Constitutional Vitals: Temp Pulse Resp BP Pulse Ox 97.5 F L 73 18 127/63 100 01/28/18 15:42 01/28/18 19:28 01/28/18 19:28 01/28/18 15:42 01/28/18 19:28 General appearance: Present: no acute distress, well-nourished - EENT Eyes: Present: PERRL, EOM intact - Neck Neck: Present: supple, normal ROM - Respiratory Respiratory effort: normal Respiratory: bilateral: diminished, rales, negative: rhonchi, wheezing - Cardiovascular Rhythm: regular Heart Sounds: Present: S1 & S2 - Extremities Extremities: no ischemia, No edema - Abdominal General gastrointestinal: soft, non-tender, non-distended, normal bowel sounds - Integumentary Integumentary: Present: clear, warm - Psychiatric Psychiatric: appropriate mood/affect, cooperative - Neurologic Neurologic: CNII-XII intact, moves all extremities Results - Labs CBC & Chem 7: 01/29/18 05:12 01/29/18 05:12 Labs: Laboratory Last Values WBC 26.7 K/mm3 (4.5-11.0) H 01/28/18 05:13 RBC 3.61 M/mm3 (3.65-5.03) L 01/28/18 05:13 Hgb 8.2 gm/dl (11.8-15.2) L 01/28/18 05:13 Hct 25.4 % (35.5-45.6) L 01/28/18 05:13 MCV 70 fl (84-94) L 01/28/18 05:13 MCH 23 pg (28-32) L 01/28/18 05:13 MCHC 33 % (32-34) 01/28/18 05:13 RDW 34.7 % (13.2-15.2) H 01/28/18 05:13 Plt Count 157 K/mm3 (140-440) 01/28/18 05:13 Add Manual Diff Complete 01/28/18 05:13 Total Counted 200 01/28/18 05:13 Seg Neutrophils % [place] Operator 01/28/18 05:13 Seg Neuts % (Manual) 89.0 % (40.0-70.0) H 01/28/18 05:13 Band Neutrophils % 5.5 % 01/28/18 05:13 Lymphocytes % (Manual) 5.0 % (13.4-35.0) L 01/28/18 05:13 Reactive Lymphs % (Man) 0 % 01/28/18 05:13 Monocytes % (Manual) 0.5 % (0.0-7.3) 01/28/18 05:13 Eosinophils % (Manual) 0 % (0.0-4.3) 01/28/18 05:13 Basophils % (Manual) 0 % (0.0-1.8) 01/28/18 05:13 Metamyelocytes % 0 % 01/28/18 05:13 Myelocytes % 0 % 01/28/18 05:13 Promyelocytes % 0 % 01/28/18 05:13 Blast Cells % 0 % 01/28/18 05:13 Nucleated RBC % Not Reportable 01/28/18 05:13 Seg Neutrophils # Man 23.8 K/mm3 (1.8-7.7) H 01/28/18 05:13 Band Neutrophils # 1.5 K/mm3 01/28/18 05:13 Lymphocytes # (Manual) 1.3 K/mm3 (1.2-5.4) 01/28/18 05:13 Abs React Lymphs (Man) 0.0 K/mm3 01/28/18 05:13 Monocytes # (Manual) 0.1 K/mm3 (0.0-0.8) 01/28/18 05:13 Eosinophils # (Manual) 0.0 K/mm3 (0.0-0.4) 01/28/18 05:13 Basophils # (Manual) 0.0 K/mm3 (0.0-0.1) 01/28/18 05:13 Metamyelocytes # 0.0 K/mm3 01/28/18 05:13 Myelocytes # 0.0 K/mm3 01/28/18 05:13 Promyelocytes # 0.0 K/mm3 01/28/18 05:13 Blast Cells # 0.0 K/mm3 01/28/18 05:13 Pathologist Review 01/28/18 05:13 WBC Morphology Not Reportable 01/28/18 05:13 Hypersegmented Neuts Not Reportable 01/28/18 05:13 Hyposegmented Neuts Not Reportable 01/28/18 05:13 Hypogranular Neuts Not Reportable 01/28/18 05:13 Smudge Cells Not Reportable 01/28/18 05:13 Toxic Granulation Not Reportable 01/28/18 05:13 Toxic Vacuolation Not Reportable 01/28/18 05:13 Dohle Bodies Not Reportable 01/28/18 05:13 Pelger-Huet Anomaly Not Reportable 01/28/18 05:13 Dennise Rods Not Reportable 01/28/18 05:13 Platelet Estimate Consistent w auto 01/28/18 05:13 Clumped Platelets Not Reportable 01/28/18 05:13 Plt Clumps, EDTA Not Reportable 01/28/18 05:13 Large Platelets Not Reportable 01/28/18 05:13 Giant Platelets Not Reportable 01/28/18 05:13 Platelet Satelliting Not Reportable 01/28/18 05:13 Plt Morphology Comment Not Reportable 01/28/18 05:13 RBC Morphology Not Reportable 01/28/18 05:13 Dimorphic RBCs Not Reportable 01/28/18 05:13 Polychromasia Not Reportable 01/28/18 05:13 Hypochromasia 1+ 01/28/18 05:13 Poikilocytosis Not Reportable 01/28/18 05:13 Anisocytosis 2+ 01/28/18 05:13 Microcytosis 2+ 01/28/18 05:13 Macrocytosis Not Reportable 01/28/18 05:13 Spherocytes Not Reportable 01/28/18 05:13 Pappenheimer Bodies Not Reportable 01/28/18 05:13 Sickle Cells Not Reportable 01/28/18 05:13 Target Cells Not Reportable 01/28/18 05:13 Tear Drop Cells 2+ 01/28/18 05:13 Ovalocytes Not Reportable 01/28/18 05:13 Helmet Cells Not Reportable 01/28/18 05:13 Sexton-Turner Bodies Not Reportable 01/28/18 05:13 [place] Rings Not Reportable 01/28/18 05:13 Gloria Cells Not Reportable 01/28/18 05:13 Bite Cells Not Reportable 01/28/18 05:13 Crenated Cell Not Reportable 01/28/18 05:13 Elliptocytes 2+ 01/28/18 05:13 Acanthocytes (Spur) Not Reportable 01/28/18 05:13 Rouleaux Not Reportable 01/28/18 05:13 Hemoglobin C Crystals Not Reportable 01/28/18 05:13 Schistocytes Not Reportable 01/28/18 05:13 Malaria parasites Not Reportable 01/28/18 05:13 Fernie Bodies Not Reportable 01/28/18 05:13 Hem Pathologist Commnt Sent to pathology 01/28/18 05:13 PT 17.3 Sec. (12.2-14.9) H 01/26/18 21:09 INR 1.34 (0.87-1.13) H 01/26/18 21:09 APTT 52.4 Sec. (24.2-36.6) H 01/26/18 21:09 POC ABG pH 7.386 (7.35-7.45) 01/27/18 01:35 POC ABG pCO2 26.3 (35-45) L 01/27/18 01:35 POC ABG pO2 253 (80-105) H 01/27/18 01:35 POC ABG HCO3 15.8 01/27/18 01:35 POC ABG Total CO2 17 01/27/18 01:35 POC ABG O2 Sat 100 01/27/18 01:35 POC ABG Base Excess -9 01/27/18 01:35 VBG pH 7.326 (7.320-7.420) 01/26/18 21:09 FiO2 100 % 01/27/18 01:35 Sodium 130 mmol/L (137-145) L 01/28/18 05:13 Potassium 4.3 mmol/L (3.6-5.0) 01/28/18 05:13 Chloride 100.0 mmol/L (98-107) 01/28/18 05:13 Carbon Dioxide 17 mmol/L (22-30) L 01/28/18 05:13 Anion Gap 17 mmol/L 01/28/18 05:13 BUN 73 mg/dL (9-20) H 01/28/18 05:13 Creatinine 1.9 mg/dL (0.8-1.5) H 01/28/18 05:13 Estimated GFR 42 ml/min 01/28/18 05:13 BUN/Creatinine Ratio 38 % 01/28/18 05:13 Glucose 290 mg/dL (75-100) H 01/28/18 05:13 POC Glucose 475 (70-105) H 01/28/18 15:46 Lactic Acid 0.90 mmol/L (0.7-2.0) 01/26/18 22:45 Calcium 8.9 mg/dL (8.4-10.2) 01/28/18 05:13 Phosphorus 2.70 mg/dL (2.5-4.5) 01/28/18 05:13 Magnesium 1.80 mg/dL (1.7-2.3) 01/28/18 05:13 Iron 74 ug/dL (49-181) 01/28/18 05:13 TIBC 194 mcg/dL (250-450) L 01/28/18 05:13 % Saturation 9.77 % 01/27/18 06:49 Transferrin 158 mg/dl (180-329) L 01/27/18 06:49 Ferritin 675.1 ng/mL (13.0-400.0) H 01/28/18 05:13 Total Bilirubin 1.20 mg/dL (0.1-1.2) 01/28/18 05:13 AST 30 units/L (5-40) 01/28/18 05:13 ALT 50 units/L (7-56) 01/28/18 05:13 Alkaline Phosphatase 146 units/L (35-129) H 01/28/18 05:13 Lactate Dehydrogenase 244 units/L (91-180) H 01/28/18 05:13 Total Creatine Kinase 347 units/L (55-170) H 01/27/18 09:59 CK-MB (CK-2) 3.7 ng/mL (0.0-4.0) 01/27/18 09:59 CK-MB (CK-2) Rel Index 1.0 (0-4) 01/27/18 09:59 Troponin T 0.015 ng/mL (0.00-0.029) 01/27/18 09:59 NT-Pro-B Natriuret Pep 4260 pg/mL (0-900) H 01/26/18 19:54 Total Protein 6.6 g/dL (6.3-8.2) 01/28/18 05:13 Albumin 3.2 g/dL (3.9-5) L 01/28/18 05:13 Albumin/Globulin Ratio 0.9 % 01/28/18 05:13 Triglycerides 107 mg/dL (2-149) 01/26/18 19:54 Cholesterol 61 mg/dL (50-199) 01/26/18 19:54 LDL Cholesterol Direct 17 mg/dL (50-130) L 01/26/18 19:54 HDL Cholesterol 14 mg/dL (40-59) L 01/26/18 19:54 Cholesterol/HDL Ratio 4.35 % 01/26/18 19:54 Vitamin B12 > 2000 pg/mL (211-911) H 01/28/18 05:13 Folate 16.74 ng/mL (7.3-26.0) 01/28/18 05:13 Urine Color [place] (Yellow) 01/26/18 21:55 Urine Turbidity Cloudy (Clear) 01/26/18 21:55 Urine pH 5.0 (5.0-7.0) 01/26/18 21:55 Ur Specific Adams 1.015 (1.003-1.030) 01/26/18 21:55 Urine Protein 100 mg/dl mg/dL (Negative) 01/26/18 21:55 Urine Glucose (UA) Neg mg/dL (Negative) 01/26/18 21:55 Urine Ketones Neg mg/dL (Negative) 01/26/18 21:55 Urine Blood Sm (Negative) 01/26/18 21:55 Urine Nitrite Neg (Negative) 01/26/18 21:55 Urine Bilirubin Neg (Negative) 01/26/18 21:55 Urine Urobilinogen 4.0 mg/dL (<2.0) 01/26/18 21:55 Ur Leukocyte Esterase Neg (Negative) 01/26/18 21:55 Urine WBC (Auto) 2.0 /HPF (0.0-6.0) 01/26/18 21:55 Urine RBC (Auto) 16.0 /HPF (0.0-6.0) 01/26/18 21:55 Urine Bacteria (Auto) 1+ /HPF (Negative) 01/26/18 21:55 Hyaline Casts 1 /LPF 01/26/18 21:55 Urine Mucus Few /HPF 01/26/18 21:55 Urine Yeast (Budding) 2+ /HPF 01/26/18 21:55 Blood Type A POSITIVE 01/26/18 21:14 Antibody Screen Negative 01/26/18 21:14 Crossmatch See Detail 01/26/18 21:14
[2018-01-29] MEDS: SOLU-Medrol IV SCH ×3 (05:31→21:58)
[2018-01-29 05:40] LABS: Hematocrit 26.8 % (35.5-45.6); Hemoglobin 8.9 gm/dl (11.8-15.2); Mean Corpuscular HGB Conc 33 % (32-34); Red Blood Count 3.88 M/mm3 (3.65-5.03)
[2018-01-29 05:41] LABS: Mean Corpuscular Hemoglobin 23 pg (28-32); Mean Corpuscular Volume 69 fl (84-94); Red Cell Distribution Width 36.8 % (13.2-15.2)
[2018-01-29 06:22] LABS: Albumin 3.1 g/dL (3.9-5); Calcium 8.9 mg/dL (8.4-10.2)
[2018-01-29 06:29] LABS: Anisocytosis 3+; Band Neutrophils # (Manual) 0.2 K/mm3; Eosinophils % (Manual) 0 % (0.0-4.3); Ovalocytes 2+; Total Cells Counted 100
[2018-01-29 06:30] LABS: Platelet Estimate Consistent w Auto; Schistocytes 1+
[2018-01-29 06:31] LABS: Platelet Count 184 K/mm3 (140-440)
[2018-01-29] MEDS: HumaLOG SUB-Q SCH ×4 (07:56→22:08)
[2018-01-29] MEDS: DUONEB *Not for PRN Use IH SCH ×3 (08:14→19:59)
--- NOTE | 2018-01-29 10:13 | Progress Note ---
Assessment and Plan Impression: * Chronic kidney disease * Acute hypoxic respiratory failure secondary to pulmonary edema vs other * Anemia * Leukocytosis * Hyperkalemia, mild * Metabolic acidosis Plan: * Renal function is stable * Diuresis prn * Cont po bicarbonate * Transfuse pRBC per primary team * Empiric abx per primary team - blood cx pending * Hematology recommendations noted * Avoid potential nephrotoxins * Strict I/O Subjective Date of service: 01/29/18 Principal diagnosis: anemia and leukocytosis Objective - Vital Signs Vital signs: Vital Signs - 12hr 01/28/18 01/29/18 01/29/18 23:38 00:44 06:27 Temperature 98.2 F 98.1 F Pulse Rate 79 76 68 Pulse Rate [ Anterior Bilateral Throughout] Respiratory 18 18 Rate Respiratory Rate [Anterior Bilateral Throughout] Blood Pressure 121/63 128/69 O2 Sat by Pulse 98 100 Oximetry 01/29/18 01/29/18 08:14 08:24 Temperature Pulse Rate Pulse Rate [ 77 76 Anterior Bilateral Throughout] Respiratory Rate Respiratory 18 18 Rate [Anterior Bilateral Throughout] Blood Pressure O2 Sat by Pulse Oximetry - Lab 01/29/18 05:12 01/29/18 05:12 Most recent lab results Calcium 8.9 mg/dL (8.4-10.2) 01/29/18 05:12 Phosphorus 2.70 mg/dL (2.5-4.5) 01/28/18 05:13 Magnesium 1.90 mg/dL (1.7-2.3) 01/29/18 05:12
[2018-01-29] MEDS: FLOMAX PO SCH (11:06)
[2018-01-29] MEDS: HALFPRIN EC PO SCH (11:07)
[2018-01-29] MEDS: COREG PO SCH ×2 (11:07→21:57)
[2018-01-29] MEDS: ZYLOPRIM PO SCH ×2 (11:07→21:57)
[2018-01-29] MEDS: SODIUM BICARBONATE PO SCH ×2 (11:08→21:57)
[2018-01-29] MEDS: SODIUM CHLORIDE FLUSH SYRINGE 10 ML IV SCH ×2 (11:14→21:57)
--- NOTE | 2018-01-29 12:30 | Consultation ---
History of Present Illness Consult date: 01/29/18 Requesting physician: STEVENSON SWANN Consult reason: congestive heart failure History of present illness: The pt is a 72 YO male with a past medical history significant for severe MR ( not an operable candidate per [place] CT surgery), NICMP, AICD in situ, CKD, HTN, HLP and DM. He is followed in our office by Dr. Chana Arroyo. He presented with complaints of generalized weakness, fatigue and SOB for several weeks prior to arrival. He denies any chest pain, palpitations, n/v, diaphoresis, dizziness or syncope. Following arrival, H/H was found to be 6.8/21.0 and he has since received PRBC tx. Additionally, he was found to have significant leukocytosis and leukemia is suspected. LHC 01/2017 showed normal coronaries, EF 20-25%, severe MR. Echo done 01/21/2017 showed EF 25-30%, LV severely dilated, grade III diastolic dysfunction, pacemaker in RV, severe MR. Past History Past Medical History: COPD, diabetes, heart failure, hypertension, other (sleep apnea) Past Surgical History: Other (AICD) Social history: denies: smoking, alcohol abuse Family history: hypertension Medications and Allergies Allergies Allergy/AdvReac Type Severity Reaction Status Date / Time No Known Allergies Allergy Verified 02/11/17 07:18 Home Medications Medication Instructions Recorded Confirmed Last Taken Type Aspirin [Adult Low Dose Aspirin EC] 1 tab PO DAILY 10/31/15 01/27/18 1 Day Ago History ~01/26/18 Carvedilol [Coreg] 25 mg PO BID 10/31/15 01/27/18 1 Day Ago History ~01/26/18 Furosemide [Lasix TAB] 40 mg PO QDAY #30 tablet 02/12/17 01/27/18 1 Day Ago Rx ~01/26/18 Spironolactone [Aldactone] 25 mg PO QDAY tablet 02/12/17 01/27/18 1 Day Ago Rx ~01/26/18 Tamsulosin [Flomax] 0.4 mg PO DAILY capsule 02/12/17 01/27/18 1 Day Ago Rx ~01/26/18 Albuterol Sulfate [Ventolin HFA] 2 puff IH Q6H PRN 01/27/18 01/27/18 Unknown History Allopurinol 100 mg PO BID 01/27/18 01/27/18 1 Day Ago History ~01/26/18 Amlodipine Besylate [Norvasc] 10 mg PO QDAY 01/27/18 01/27/18 1 Day Ago History ~01/26/18 AtorvaSTATin [Lipitor] 20 mg PO QHS 01/27/18 01/27/18 1 Day Ago History ~01/26/18 Fluticasone [Flonase] 1 spray NS QDAY 01/27/18 01/27/18 Unknown History Iron Fum,Ps/Folic/Bcomp,C No.9 1 each PO QDAY 01/27/18 01/27/18 1 Day Ago History [Integra Plus Capsule] ~01/26/18 Mometasone/Formoterol [Dulera 100 2 puff IH BID 01/27/18 01/27/18 Unknown History Mcg/5 Mcg Inhaler] Vitamin E 800 unit PO QDAY 01/27/18 01/27/18 1 Day Ago History ~01/26/18 cycloSPORINE [Restasis] 2 each OP QDAY 01/27/18 01/27/18 Unknown History hydrOXYzine HCl [Hydroxyzine HCl] 25 mg PO Q8H PRN 01/27/18 01/27/18 Unknown History Active Meds: Active Medications Acetaminophen (Tylenol) 650 mg PO Q4H PRN PRN Reason: Pain MILD(1-3)/Fever >100.5/LAYNE Last Admin: 01/27/18 00:30 Dose: 650 mg Albuterol (Proventil) 2.5 mg IH Q4HRT PRN PRN Reason: Shortness Of Breath Albuterol/Ipratropium (Duoneb *Not For Prn Use*) 1 ampul IH TIDRT [facility] Last Admin: 01/29/18 08:14 Dose: 1 ampul Allopurinol (Zyloprim) 100 mg PO BID [facility] Last Admin: 01/29/18 11:07 Dose: 100 mg Aspirin (Halfprin Ec) 81 mg PO DAILY [facility] Last Admin: 01/29/18 11:07 Dose: 81 mg Atorvastatin Calcium (Lipitor) 20 mg PO QHS [facility] Last Admin: 01/28/18 21:42 Dose: 20 mg Carvedilol (Coreg) 25 mg PO BID [facility] Last Admin: 01/29/18 11:07 Dose: 25 mg Dextrose (D50w (25gm) Syringe) 50 ml IV PRN PRN PRN Reason: Hypoglycemia Fluticasone Propionate (Flonase) 50 mcg NS QDAY [facility] Last Admin: 01/28/18 10:09 Dose: 50 mcg Hydroxyzine HCl (Atarax) 25 mg PO Q8H PRN PRN Reason: Hypertension Insulin Human Isoph/Insulin Regular (Humulin 70/30) 10 unit SUB-Q BIDDIAB [facility] Last Admin: 01/29/18 11:13 Dose: 10 unit Insulin Human Lispro (Humalog) 0 unit SUB-Q ACHS [facility]; Protocol Last Admin: 01/29/18 11:12 Dose: 10 unit Methylprednisolone Sodium Succinate (Solu-Medrol) 20 mg IV Q12H [facility] Last Admin: 01/29/18 11:03 Dose: 20 mg Ondansetron HCl (Zofran) 4 mg IV Q8H PRN PRN Reason: Nausea And Vomiting Sodium Bicarbonate (Sodium Bicarbonate) 1,300 mg PO BID [facility] Last Admin: 01/29/18 11:08 Dose: 1,300 mg Sodium Chloride (Sodium Chloride Flush Syringe 10 Ml) 10 ml IV BID [facility] Last Admin: 01/29/18 11:14 Dose: 10 ml Sodium Chloride (Sodium Chloride Flush Syringe 10 Ml) 10 ml IV PRN PRN PRN Reason: LINE FLUSH Tamsulosin HCl (Flomax) 0.4 mg PO DAILY [facility] Last Admin: 01/29/18 11:06 Dose: 0.4 mg Review of Systems Constitutional: fatigue, weakness, no weight loss, no weight gain, no fever, no chills, no sweats Ears, nose, mouth and throat: no ear pain, no nose pain, no sinus pressure, no sinus pain Cardiovascular: shortness of breath, dyspnea on exertion, no chest pain, no orthopnea, no palpitations, no rapid/irregular heart beat, no edema, no syncope , no lightheadedness, no paroxysmal nocturnal dyspnea, no leg edema Respiratory: shortness of breath, dyspnea on exertion, no cough, no congestion, no wheezing, no pain on inspiration Gastrointestinal: no abdominal pain, no nausea, no vomiting, no diarrhea, no constipation, no change in bowel habits Genitourinary Male: no dysuria, no hematuria, no flank pain, no discharge, no urinary frequency, no urinary hesitancy Musculoskeletal: no neck stiffness, no neck pain Integumentary: no rash, no pruritis, no redness, no sores, no wounds Neurological: no head injury, no paralysis, no weakness, no parathesias, no numbness, no tingling, no seizures, no syncope Psychiatric: no anxiety Endocrine: no cold intolerance, no heat intolerance Hematologic/Lymphatic: no easy bruising, no easy bleeding, no lymphadenopathy Allergic/Immunologic: no urticaria, no wheezing, no persistent infections Physical Examination Vital Signs Temp Pulse Resp BP Pulse Ox 98.1 F 83 18 109/40 96 01/26/18 19:14 01/26/18 19:14 01/26/18 19:14 01/26/18 19:14 01/26/18 19:14 General appearance: no acute distress HEENT: Positive: PERRL, Normocephaly, Mucus Membranes Moist Neck: Positive: neck supple, trachea midline Cardiac: Positive: Reg Rate and Rhythm, S1/S2, Systolic Murmur Lungs: Positive: clear to auscultation Neuro: Positive: Grossly Intact Abdomen: Positive: Soft. Negative: Tender Skin: Positive: Clear. Negative: Rash, Wound Musculoskeletal: No Fluid Collection, No Pain, Normal Range of Motion Extremities: Absent: edema Results 01/29/18 05:12 01/29/18 05:12 Cardiac Enzymes 01/28/18 01/29/18 Range/Units 05:13 05:12 AST 21 (5-40) units/L Lactate Dehydrogenase 244 H (91-180) units/L CBC 01/28/18 01/29/18 Range/Units 05:13 05:12 WBC 26.7 H 20.7 H (4.5-11.0) K/mm3 RBC 3.61 L 3.88 (3.65-5.03) M/mm3 Hgb 8.2 L 8.9 L (11.8-15.2) gm/dl Hct 25.4 L 26.8 L (35.5-45.6) % Plt Count 157 184 (140-440) K/mm3 Comprehensive Metabolic Panel 01/29/18 Range/Units 05:12 Sodium 135 L (137-145) mmol/L Potassium 4.5 (3.6-5.0) mmol/L Chloride 101.5 (98-107) mmol/L Carbon Dioxide 20 L (22-30) mmol/L BUN 80 H (9-20) mg/dL Creatinine 1.7 H (0.8-1.5) mg/dL Glucose 354 H (75-100) mg/dL Calcium 8.9 (8.4-10.2) mg/dL AST 21 (5-40) units/L ALT 43 (7-56) units/L Alkaline Phosphatase 135 H (35-129) units/L Total Protein 6.6 (6.3-8.2) g/dL Albumin 3.1 L (3.9-5) g/dL - Imaging and Cardiology Echo: report reviewed (01/21/2017 showed EF 25-30%, LV severely dilated, grade III diastolic dysfunction, pacemaker in RV, severe MR. ) Cardiac cath: report reviewed (01/2017 showed normal coronaries, EF 20-25%, severe MR. ) EKG: report reviewed, image reviewed EKG interpretations - Telemetry EKG Rhythm: Paced Pacemaker: ventricular pacing w/capt Assessment and Plan No current clinical evidence of acutely decompensated HF. Cont present cardiac regimen. The patient has been seen in conjunction with Dr. Gentile who agrees with the assessment and plan of care. - Patient Problems (1) Symptomatic anemia Current Visit: Yes Status: Acute (2) Leukocytosis Current Visit: Yes Status: Acute Qualifiers: Leukocytosis type: other Qualified Code(s): D72.828 - Other elevated white blood cell count (3) Chronic combined systolic and diastolic CHF (congestive heart failure) Current Visit: Yes Status: Chronic (4) NICM (nonischemic cardiomyopathy) Current Visit: Yes Status: Chronic (5) Implantable cardioverter-defibrillator (ICD) in situ Current Visit: Yes Status: Chronic (6) Severe mitral regurgitation Current Visit: Yes Status: Chronic (7) HTN (hypertension) Current Visit: Yes Status: Chronic (8) Diabetes Current Visit: Yes Status: Chronic
--- NOTE | 2018-01-29 13:12 | Hem/Onc Progress Note ---
Assessment and Plan Generic Name Dose Route Start Last Admin Trade Name Lemuel PRN Reason Stop Dose Admin Acetaminophen 650 mg 01/26/18 22:10 01/27/18 00:30 Tylenol PO 650 mg Q4H PRN Administration Pain MILD(1-3)/Fever >100.5/LAYNE Albuterol 2.5 mg 01/28/18 00:53 Proventil IH Q4HRT PRN Shortness Of Breath Albuterol/Ipratropium 1 ampul 01/28/18 08:00 01/29/18 19:59 Duoneb *Not For Prn Use* IH 1 ampul TIDRT EVELIN Administration Allopurinol 100 mg 01/28/18 22:00 01/29/18 21:57 Zyloprim PO 100 mg BID EVELIN Administration Aspirin 81 mg 01/27/18 10:00 01/29/18 11:07 Halfprin Ec PO 81 mg DAILY EVELIN Administration Atorvastatin Calcium 20 mg 01/27/18 22:00 01/29/18 21:57 Lipitor PO 20 mg QHS EVELIN Administration Carvedilol 25 mg 01/27/18 22:00 01/29/18 21:57 Coreg PO 25 mg BID EVELIN Administration Dextrose 50 ml 01/27/18 03:27 D50w (25gm) Syringe IV PRN PRN Hypoglycemia Fluticasone Propionate 50 mcg 01/28/18 10:00 01/28/18 10:09 Flonase NS 50 mcg QDAY EVELIN Administration Hydroxyzine HCl 25 mg 01/27/18 17:23 Atarax PO Q8H PRN Hypertension Insulin Human Isoph/Insulin Regular 10 unit 01/29/18 08:00 01/29/18 17:30 Humulin 70/30 SUB-Q 10 unit BIDDIAB EVELIN Administration Insulin Human Lispro 0 unit 01/27/18 07:30 01/29/18 22:08 Humalog SUB-Q 8 unit ACHS EVELIN Administration Protocol Methylprednisolone Sodium Succinate 20 mg 01/29/18 10:00 01/29/18 21:58 Solu-Medrol IV 20 mg Q12H EVELIN Administration Ondansetron HCl 4 mg 01/26/18 22:10 Zofran IV Q8H PRN Nausea And Vomiting Sodium Bicarbonate 1,300 mg 01/27/18 11:00 01/29/18 21:57 Sodium Bicarbonate PO 1,300 mg BID EVELIN Administration Sodium Chloride 10 ml 01/27/18 10:00 01/29/18 21:57 Sodium Chloride Flush Syringe 10 Ml IV 10 ml BID EVELIN Administration Sodium Chloride 10 ml 01/26/18 22:10 Sodium Chloride Flush Syringe 10 Ml IV PRN PRN LINE FLUSH Tamsulosin HCl 0.4 mg 01/27/18 10:00 01/29/18 11:06 Flomax PO 0.4 mg DAILY EVELIN Administration # anemia - MCV low - 1 unit PRBC was ordered. anemia may be a multifactorial - b12, folate, ferritin - normal LDH 200s Smear - ? iron def - but ferritin high - ? inflammatory - will follow the trend of CBC Hb electrophoresis ordered # Leukocytosis - predominant neutrophils - no mention of blasts - path report reviewed d/w pt reg option of BMBX - as some of the numbers are better - pt prefers to wait # h/o CHF # h/o COPD # h/o DM # h/o HTN - Patient Problems (1) Anemia Current Visit: Yes Status: Acute Qualifiers: Anemia type: other cause (2) Leukocytosis Current Visit: Yes Status: Acute Qualifiers: Leukocytosis type: other Qualified Code(s): D72.828 - Other elevated white blood cell count Subjective Date of service: 01/29/18 Principal diagnosis: anemia - high WBC Interval history: pt says he is feeling better. he is eating and breathing better. no bleeding wbc and hb better - pt not keen for BMBX Objective - Constitutional Vitals: Last Vital Signs Temp 98.1 F 01/29/18 06:27 Pulse 76 01/29/18 08:24 Resp 18 01/29/18 08:24 BP 128/69 01/29/18 06:27 Pulse Ox 100 01/29/18 06:27 Pain Intensity (0-10): denies any pain General appearance: no acute distress Performance status: 2- selfcare, ambulatory - EENT Eyes: PERRL ENT: clear oral mucosa Lymph node exam: negative cervical, negative supraclavicular - Neck Neck: supple - Respiratory Respiratory effort: Positive: normal Respiratory: bilateral: CTA - Cardiovascular Heart Sounds: Present: S1 & S2 Extremity abnormal: edema - Gastrointestinal General gastrointestinal: Present: soft, non-tender Rectal Exam: deferred - Genitourinary Male genitourinary: Present: deferred - Musculoskeletal Musculoskeletal: strength equal bilaterally - Neurologic Neurologic: moves all extremities - Psychiatric Psychiatric: appropriate mood/affect - Allied health notes Allied health notes reviewed: nursing - Labs Lab Results: Laboratory Results - last 24 hr 01/28/18 01/28/18 01/28/18 05:13 05:13 13:10 WBC 26.7 H RBC 3.61 L Hgb 8.2 L Hct 25.4 L MCV 70 L MCH 23 L MCHC 33 RDW 34.7 H Plt Count 157 Add Manual Diff Complete Total Counted 200 Seg Neutrophils % Silverware Assembler Seg Neuts % (Manual) 89.0 H Band Neutrophils % 5.5 Lymphocytes % (Manual) 5.0 L Reactive Lymphs % (Man) 0 Monocytes % (Manual) 0.5 Eosinophils % (Manual) 0 Basophils % (Manual) 0 Metamyelocytes % 0 Myelocytes % 0 Promyelocytes % 0 Blast Cells % 0 Nucleated RBC % Seg Neutrophils # Man 23.8 H Band Neutrophils # 1.5 Lymphocytes # (Manual) 1.3 Abs React Lymphs (Man) 0.0 Monocytes # (Manual) 0.1 Eosinophils # (Manual) 0.0 Basophils # (Manual) 0.0 Metamyelocytes # 0.0 Myelocytes # 0.0 Promyelocytes # 0.0 Blast Cells # 0.0 Pathologist Review WBC Morphology Hypersegmented Neuts Hyposegmented Neuts Hypogranular Neuts Smudge Cells Toxic Granulation Toxic Vacuolation Dohle Bodies Pelger-Huet Anomaly Dennise Rods Platelet Estimate Consistent w auto Clumped Platelets Plt Clumps, EDTA Large Platelets Giant Platelets Platelet Satelliting Plt Morphology Comment RBC Morphology Dimorphic RBCs Polychromasia Hypochromasia 1+ Poikilocytosis Anisocytosis 2+ Microcytosis 2+ Macrocytosis Spherocytes Pappenheimer Bodies Sickle Cells Target Cells Tear Drop Cells 2+ Ovalocytes Helmet Cells [place] Bodies [place] Rings Gloria Cells Bite Cells Crenated Cell Elliptocytes 2+ Acanthocytes (Spur) Rouleaux Hemoglobin C Crystals Schistocytes Malaria parasites Fernie Bodies Hem Pathologist Commnt Sent to pathology Sodium Potassium Chloride Carbon Dioxide Anion Gap BUN Creatinine Estimated GFR BUN/Creatinine Ratio Glucose POC Glucose 347 H Calcium Magnesium Total Bilirubin AST ALT Alkaline Phosphatase Lactate Dehydrogenase 244 H Total Protein Albumin Albumin/Globulin Ratio 01/28/18 01/28/18 01/29/18 15:46 20:57 05:12 WBC 20.7 H RBC 3.88 Hgb 8.9 L Hct 26.8 L MCV 69 L MCH 23 L MCHC 33 RDW 36.8 H Plt Count 184 Add Manual Diff Complete Total Counted 100 Seg Neutrophils % Seg Neuts % (Manual) 84.0 H Band Neutrophils % 1.0 Lymphocytes % (Manual) 11.0 L Reactive Lymphs % (Man) 0 Monocytes % (Manual) 3.0 Eosinophils % (Manual) 0 Basophils % (Manual) 1.0 Metamyelocytes % 0 Myelocytes % 0 Promyelocytes % 0 Blast Cells % 0 Nucleated RBC % Not Reportable Seg Neutrophils # Man 17.4 H Band Neutrophils # 0.2 Lymphocytes # (Manual) 2.3 Abs React Lymphs (Man) 0.0 Monocytes # (Manual) 0.6 Eosinophils # (Manual) 0.0 Basophils # (Manual) 0.2 H Metamyelocytes # 0.0 Myelocytes # 0.0 Promyelocytes # 0.0 Blast Cells # 0.0 Pathologist Review WBC Morphology Not Reportable Hypersegmented Neuts Not Reportable Hyposegmented Neuts Not Reportable Hypogranular Neuts Not Reportable Smudge Cells Not Reportable Toxic Granulation Not Reportable Toxic Vacuolation Not Reportable Dohle Bodies Not Reportable Pelger-Huet Anomaly Not Reportable Dennise Rods Not Reportable Platelet Estimate Consistent w auto Clumped Platelets Not Reportable Plt Clumps, EDTA Not Reportable Large Platelets Not Reportable Giant Platelets Not Reportable Platelet Satelliting Not Reportable Plt Morphology Comment Not Reportable RBC Morphology Not Reportable Dimorphic RBCs Not Reportable Polychromasia Not Reportable Hypochromasia Not Reportable Poikilocytosis Not Reportable Anisocytosis 3+ Microcytosis 2+ Macrocytosis Not Reportable Spherocytes Not Reportable Pappenheimer Bodies Not Reportable Sickle Cells Not Reportable Target Cells Not Reportable Tear Drop Cells Not Reportable Ovalocytes 2+ Helmet Cells Not Reportable [place] Bodies Not Reportable [place] Rings Not Reportable [place] Cells Not Reportable Bite Cells Not Reportable Crenated Cell Not Reportable Elliptocytes Not Reportable Acanthocytes (Spur) Not Reportable Rouleaux Not Reportable Hemoglobin C Crystals Not Reportable Schistocytes 1+ Malaria parasites Not Reportable Fernie Bodies Not Reportable Hem Pathologist Commnt No Sodium Potassium Chloride Carbon Dioxide Anion Gap BUN Creatinine Estimated GFR BUN/Creatinine Ratio Glucose POC Glucose 475 H 423 H Calcium Magnesium Total Bilirubin AST ALT Alkaline Phosphatase Lactate Dehydrogenase Total Protein Albumin Albumin/Globulin Ratio 01/29/18 01/29/18 01/29/18 05:12 06:43 10:52 WBC RBC Hgb Hct MCV MCH MCHC RDW Plt Count Add Manual Diff Total Counted Seg Neutrophils % Seg Neuts % (Manual) Band Neutrophils % Lymphocytes % (Manual) Reactive Lymphs % (Man) Monocytes % (Manual) Eosinophils % (Manual) Basophils % (Manual) Metamyelocytes % Myelocytes % Promyelocytes % Blast Cells % Nucleated RBC % Seg Neutrophils # Man Band Neutrophils # Lymphocytes # (Manual) Abs React Lymphs (Man) Monocytes # (Manual) Eosinophils # (Manual) Basophils # (Manual) Metamyelocytes # Myelocytes # Promyelocytes # Blast Cells # Pathologist Review WBC Morphology Hypersegmented Neuts Hyposegmented Neuts Hypogranular Neuts Smudge Cells Toxic Granulation Toxic Vacuolation Dohle Bodies Pelger-Huet Anomaly Dennise Rods Platelet Estimate Clumped Platelets Plt Clumps, EDTA Large Platelets Giant Platelets Platelet Satelliting Plt Morphology Comment RBC Morphology Dimorphic RBCs Polychromasia Hypochromasia Poikilocytosis Anisocytosis Microcytosis Macrocytosis Spherocytes Pappenheimer Bodies Sickle Cells Target Cells Tear Drop Cells Ovalocytes Helmet Cells [place] Bodies [place] Rings Gloria Cells Bite Cells Crenated Cell Elliptocytes Acanthocytes (Spur) Rouleaux Hemoglobin C Crystals Schistocytes Malaria parasites Fernie Bodies Hem Pathologist Commnt Sodium 135 L Potassium 4.5 Chloride 101.5 Carbon Dioxide 20 L Anion Gap 18 BUN 80 H Creatinine 1.7 H Estimated GFR 48 BUN/Creatinine Ratio 47 Glucose 354 H POC Glucose 341 H 451 H Calcium 8.9 Magnesium 1.90 Total Bilirubin 0.90 AST 21 ALT 43 Alkaline Phosphatase 135 H Lactate Dehydrogenase Total Protein 6.6 Albumin 3.1 L Albumin/Globulin Ratio 0.9
--- NOTE | 2018-01-29 19:11 | Progress Note ---
Assessment and Plan Assessment and plan: --Severe leukocytosis; possible leukemia hematology Recommended bone marrow biopsy, patient refused at this time --Acute on chronic systolic congestive heart failure; ejection fraction 20% Continue anti-failure medications, input output monitoring, cardiology consult --Nonischemic cardiomyopathy; continue anti-failure medications, low sodium diet Fluids friction, input output monitoring --Anemia; requiring blood transfusion, stool for occult blood Hematology evaluation, possible bone marrow if needed Patient received 1 unit of blood transfusion, closely monitor H&H --Symptomatic anemia; symptoms may improve posttransfusion Supportive care --Hypertension; moderate control, continue current antihypertensives When necessary medications --Acute kidney injury; vasomotor nephropathy/secondary to ATN Closely monitor renal function, avoid nephrotoxin, nephro consult if needed --Type 2 diabetes mellitus; Accu-Chek sliding scale coverage and ADA diet Insulin as needed --Obstructive sleep apnea; CPAP BiPAP at night --DVT prophylaxis; Lovenox Closely monitor the patient and adjust the management as needed Plan of care reviewed with the patient multiple family members at the bedside and his nurse History Interval history: Patient seen and examined medical records reviewed Patient feels slightly better, no new complaints Blood sugars poorly controlled secondary to noncompliance with diet Patient does not like hospital food Alert awake oriented 3 not in acute distress Hospitalist Physical - Constitutional Vitals: Temp Pulse Resp BP Pulse Ox 97.6 F 65 18 139/66 97 01/29/18 15:34 01/29/18 15:34 01/29/18 15:34 01/29/18 15:34 01/29/18 15:34 General appearance: Present: no acute distress, well-nourished, obese - EENT Eyes: Present: PERRL, EOM intact - Neck Neck: Present: supple, normal ROM - Respiratory Respiratory effort: normal Respiratory: bilateral: diminished, rales, negative: rhonchi, wheezing - Cardiovascular Rhythm: regular Heart Sounds: Present: S1 & S2 - Extremities Extremities: no ischemia, No edema - Abdominal General gastrointestinal: soft, non-tender, non-distended, normal bowel sounds - Integumentary Integumentary: Present: clear, warm - Psychiatric Psychiatric: appropriate mood/affect, cooperative - Neurologic Neurologic: CNII-XII intact, moves all extremities Results - Labs CBC & Chem 7: 01/29/18 05:12 01/29/18 05:12 Labs: Laboratory Last Values WBC 20.7 K/mm3 (4.5-11.0) H 01/29/18 05:12 RBC 3.88 M/mm3 (3.65-5.03) 01/29/18 05:12 Hgb 8.9 gm/dl (11.8-15.2) L 01/29/18 05:12 Hct 26.8 % (35.5-45.6) L 01/29/18 05:12 MCV 69 fl (84-94) L 01/29/18 05:12 MCH 23 pg (28-32) L 01/29/18 05:12 MCHC 33 % (32-34) 01/29/18 05:12 RDW 36.8 % (13.2-15.2) H 01/29/18 05:12 Plt Count 184 K/mm3 (140-440) 01/29/18 05:12 Add Manual Diff Complete 01/29/18 05:12 Total Counted 100 01/29/18 05:12 Seg Neutrophils % Account Retention Representative 01/28/18 05:13 Seg Neuts % (Manual) 84.0 % (40.0-70.0) H 01/29/18 05:12 Band Neutrophils % 1.0 % 01/29/18 05:12 Lymphocytes % (Manual) 11.0 % (13.4-35.0) L 01/29/18 05:12 Reactive Lymphs % (Man) 0 % 01/29/18 05:12 Monocytes % (Manual) 3.0 % (0.0-7.3) 01/29/18 05:12 Eosinophils % (Manual) 0 % (0.0-4.3) 01/29/18 05:12 Basophils % (Manual) 1.0 % (0.0-1.8) 01/29/18 05:12 Metamyelocytes % 0 % 01/29/18 05:12 Myelocytes % 0 % 01/29/18 05:12 Promyelocytes % 0 % 01/29/18 05:12 Blast Cells % 0 % 01/29/18 05:12 Nucleated RBC % Not Reportable 01/29/18 05:12 Seg Neutrophils # Man 17.4 K/mm3 (1.8-7.7) H 01/29/18 05:12 Band Neutrophils # 0.2 K/mm3 01/29/18 05:12 Lymphocytes # (Manual) 2.3 K/mm3 (1.2-5.4) 01/29/18 05:12 Abs React Lymphs (Man) 0.0 K/mm3 01/29/18 05:12 Monocytes # (Manual) 0.6 K/mm3 (0.0-0.8) 01/29/18 05:12 Eosinophils # (Manual) 0.0 K/mm3 (0.0-0.4) 01/29/18 05:12 Basophils # (Manual) 0.2 K/mm3 (0.0-0.1) H 01/29/18 05:12 Metamyelocytes # 0.0 K/mm3 01/29/18 05:12 Myelocytes # 0.0 K/mm3 01/29/18 05:12 Promyelocytes # 0.0 K/mm3 01/29/18 05:12 Blast Cells # 0.0 K/mm3 01/29/18 05:12 Pathologist Review 01/28/18 05:13 WBC Morphology Not Reportable 01/29/18 05:12 Hypersegmented Neuts Not Reportable 01/29/18 05:12 Hyposegmented Neuts Not Reportable 01/29/18 05:12 Hypogranular Neuts Not Reportable 01/29/18 05:12 Smudge Cells Not Reportable 01/29/18 05:12 Toxic Granulation Not Reportable 01/29/18 05:12 Toxic Vacuolation Not Reportable 01/29/18 05:12 Dohle Bodies Not Reportable 01/29/18 05:12 Pelger-Huet Anomaly Not Reportable 01/29/18 05:12 Dennise Rods Not Reportable 01/29/18 05:12 Platelet Estimate Consistent w auto 01/29/18 05:12 Clumped Platelets Not Reportable 01/29/18 05:12 Plt Clumps, EDTA Not Reportable 01/29/18 05:12 Large Platelets Not Reportable 01/29/18 05:12 Giant Platelets Not Reportable 01/29/18 05:12 Platelet Satelliting Not Reportable 01/29/18 05:12 Plt Morphology Comment Not Reportable 01/29/18 05:12 RBC Morphology Not Reportable 01/29/18 05:12 Dimorphic RBCs Not Reportable 01/29/18 05:12 Polychromasia Not Reportable 01/29/18 05:12 Hypochromasia Not Reportable 01/29/18 05:12 Poikilocytosis Not Reportable 01/29/18 05:12 Anisocytosis 3+ 01/29/18 05:12 Microcytosis 2+ 01/29/18 05:12 Macrocytosis Not Reportable 01/29/18 05:12 Spherocytes Not Reportable 01/29/18 05:12 Pappenheimer Bodies Not Reportable 01/29/18 05:12 Sickle Cells Not Reportable 01/29/18 05:12 Target Cells Not Reportable 01/29/18 05:12 Tear Drop Cells Not Reportable 01/29/18 05:12 Ovalocytes 2+ 01/29/18 05:12 Helmet Cells Not Reportable 01/29/18 05:12 [place] Bodies Not Reportable 01/29/18 05:12 [place] Rings Not Reportable 01/29/18 05:12 [place] Cells Not Reportable 01/29/18 05:12 Bite Cells Not Reportable 01/29/18 05:12 Crenated Cell Not Reportable 01/29/18 05:12 Elliptocytes Not Reportable 01/29/18 05:12 Acanthocytes (Spur) Not Reportable 01/29/18 05:12 Rouleaux Not Reportable 01/29/18 05:12 Hemoglobin C Crystals Not Reportable 01/29/18 05:12 Schistocytes 1+ 01/29/18 05:12 Malaria parasites Not Reportable 01/29/18 05:12 Fernie Bodies Not Reportable 01/29/18 05:12 Hem Pathologist Commnt No 01/29/18 05:12 PT 17.3 Sec. (12.2-14.9) H 01/26/18 21:09 INR 1.34 (0.87-1.13) H 01/26/18 21:09 APTT 52.4 Sec. (24.2-36.6) H 01/26/18 21:09 POC ABG pH 7.386 (7.35-7.45) 01/27/18 01:35 POC ABG pCO2 26.3 (35-45) L 01/27/18 01:35 POC ABG pO2 253 (80-105) H 01/27/18 01:35 POC ABG HCO3 15.8 01/27/18 01:35 POC ABG Total CO2 17 01/27/18 01:35 POC ABG O2 Sat 100 01/27/18 01:35 POC ABG Base Excess -9 01/27/18 01:35 VBG pH 7.326 (7.320-7.420) 01/26/18 21:09 FiO2 100 % 01/27/18 01:35 Sodium 135 mmol/L (137-145) L 01/29/18 05:12 Potassium 4.5 mmol/L (3.6-5.0) 01/29/18 05:12 Chloride 101.5 mmol/L (98-107) 01/29/18 05:12 Carbon Dioxide 20 mmol/L (22-30) L 01/29/18 05:12 Anion Gap 18 mmol/L 01/29/18 05:12 BUN 80 mg/dL (9-20) H 01/29/18 05:12 Creatinine 1.7 mg/dL (0.8-1.5) H 01/29/18 05:12 Estimated GFR 48 ml/min 01/29/18 05:12 BUN/Creatinine Ratio 47 % 01/29/18 05:12 Glucose 354 mg/dL (75-100) H 01/29/18 05:12 POC Glucose 410 (70-105) H 01/29/18 15:39 Lactic Acid 0.90 mmol/L (0.7-2.0) 01/26/18 22:45 Calcium 8.9 mg/dL (8.4-10.2) 01/29/18 05:12 Phosphorus 2.70 mg/dL (2.5-4.5) 01/28/18 05:13 Magnesium 1.90 mg/dL (1.7-2.3) 01/29/18 05:12 Iron 74 ug/dL (49-181) 01/28/18 05:13 TIBC 194 mcg/dL (250-450) L 01/28/18 05:13 % Saturation 9.77 % 01/27/18 06:49 Transferrin 158 mg/dl (180-329) L 01/27/18 06:49 Ferritin 675.1 ng/mL (13.0-400.0) H 01/28/18 05:13 Total Bilirubin 0.90 mg/dL (0.1-1.2) 01/29/18 05:12 AST 21 units/L (5-40) 01/29/18 05:12 ALT 43 units/L (7-56) 01/29/18 05:12 Alkaline Phosphatase 135 units/L (35-129) H 01/29/18 05:12 Lactate Dehydrogenase 244 units/L (91-180) H 01/28/18 05:13 Total Creatine Kinase 347 units/L (55-170) H 01/27/18 09:59 CK-MB (CK-2) 3.7 ng/mL (0.0-4.0) 01/27/18 09:59 CK-MB (CK-2) Rel Index 1.0 (0-4) 01/27/18 09:59 Troponin T 0.015 ng/mL (0.00-0.029) 01/27/18 09:59 NT-Pro-B Natriuret Pep 4260 pg/mL (0-900) H 01/26/18 19:54 Total Protein 6.6 g/dL (6.3-8.2) 01/29/18 05:12 Albumin 3.1 g/dL (3.9-5) L 01/29/18 05:12 Albumin/Globulin Ratio 0.9 % 01/29/18 05:12 Triglycerides 107 mg/dL (2-149) 01/26/18 19:54 Cholesterol 61 mg/dL (50-199) 01/26/18 19:54 LDL Cholesterol Direct 17 mg/dL (50-130) L 01/26/18 19:54 HDL Cholesterol 14 mg/dL (40-59) L 01/26/18 19:54 Cholesterol/HDL Ratio 4.35 % 01/26/18 19:54 Vitamin B12 > 2000 pg/mL (211-911) H 01/28/18 05:13 Folate 16.74 ng/mL (7.3-26.0) 01/28/18 05:13 Urine Color [place] (Yellow) 01/26/18 21:55 Urine Turbidity Cloudy (Clear) 01/26/18 21:55 Urine pH 5.0 (5.0-7.0) 01/26/18 21:55 Ur Specific [place] 1.015 (1.003-1.030) 01/26/18 21:55 Urine Protein 100 mg/dl mg/dL (Negative) 01/26/18 21:55 Urine Glucose (UA) Neg mg/dL (Negative) 01/26/18 21:55 Urine Ketones Neg mg/dL (Negative) 01/26/18 21:55 Urine Blood Sm (Negative) 01/26/18 21:55 Urine Nitrite Neg (Negative) 01/26/18 21:55 Urine Bilirubin Neg (Negative) 01/26/18 21:55 Urine Urobilinogen 4.0 mg/dL (<2.0) 01/26/18 21:55 Ur Leukocyte Esterase Neg (Negative) 01/26/18 21:55 Urine WBC (Auto) 2.0 /HPF (0.0-6.0) 01/26/18 21:55 Urine RBC (Auto) 16.0 /HPF (0.0-6.0) 01/26/18 21:55 Urine Bacteria (Auto) 1+ /HPF (Negative) 01/26/18 21:55 Hyaline Casts 1 /LPF 01/26/18 21:55 Urine Mucus Few /HPF 01/26/18 21:55 Urine Yeast (Budding) 2+ /HPF 01/26/18 21:55 Blood Type A POSITIVE 01/26/18 21:14 Antibody Screen Negative 01/26/18 21:14 Crossmatch See Detail 01/26/18 21:14
[2018-01-30] MEDS: DUONEB *Not for PRN Use IH SCH ×2 (07:47→14:53)
[2018-01-30] MEDS: FLONASE NS SCH (08:12)
[2018-01-30] MEDS: HALFPRIN EC PO SCH (09:32)
[2018-01-30] MEDS: COREG PO SCH (09:32)
[2018-01-30] MEDS: ZYLOPRIM PO SCH (09:32)
[2018-01-30] MEDS: SODIUM BICARBONATE PO SCH (09:32)
[2018-01-30] MEDS: FLOMAX PO SCH (09:32)
[2018-01-30] MEDS: HumaLOG SUB-Q SCH (09:33)
[2018-01-30] MEDS: SODIUM CHLORIDE FLUSH SYRINGE 10 ML IV SCH (09:37)
[2018-01-30 09:44] VITALS: BP 139/67
--- NOTE | 2018-01-30 10:41 | Progress Note ---
Assessment and Plan Currently stable cardiac status. Pt may discharge home from cardiology standpoint on home cardiac regiment. Follow up in our [place] office with Dr. Chana Arroyo on 02/20/2018 @ 3:30PM. The patient has been seen in conjunction with Dr. Gentile who agrees with the assessment and plan of care. - Patient Problems (1) Symptomatic anemia Current Visit: Yes Status: Acute (2) Leukocytosis Current Visit: Yes Status: Acute Qualifiers: Leukocytosis type: other Qualified Code(s): D72.828 - Other elevated white blood cell count (3) Chronic combined systolic and diastolic CHF (congestive heart failure) Current Visit: Yes Status: Chronic (4) NICM (nonischemic cardiomyopathy) Current Visit: Yes Status: Chronic (5) Implantable cardioverter-defibrillator (ICD) in situ Current Visit: Yes Status: Chronic (6) Severe mitral regurgitation Current Visit: Yes Status: Chronic (7) HTN (hypertension) Current Visit: Yes Status: Chronic (8) Diabetes Current Visit: Yes Status: Chronic (9) DARIEL (acute kidney injury) Current Visit: Yes Status: Acute Subjective Date of service: 01/30/18 Principal diagnosis: anemia - high WBC Interval history: pt resting in bed, no current cardiac complaints. states he feels ready to be discharged home. Objective Last Vital Signs Temp 98.7 F 01/30/18 09:44 Pulse 74 01/30/18 09:44 Resp 18 01/30/18 09:44 BP 139/67 01/30/18 09:44 Pulse Ox 98 01/30/18 09:44 - Physical Examination HEENT: Positive: PERRL, Normocephaly, Mucus Membranes Moist Neck: Positive: neck supple, trachea midline Cardiac: Positive: Reg Rate and Rhythm, S1/S2, Systolic Murmur Lungs: Positive: clear to auscultation Neuro: Positive: Grossly Intact Abdomen: Positive: Soft. Negative: Tender Skin: Positive: Clear. Negative: Rash, Wound Musculoskeletal: No Fluid Collection, No Pain, Normal Range of Motion Extremities: Absent: edema - Imaging and Cardiology EKG: report reviewed, image reviewed Echo: report reviewed (01/21/2017 showed EF 25-30%, LV severely dilated, grade III diastolic dysfunction, pacemaker in RV, severe MR. ) Cardiac cath: report reviewed (01/2017 showed normal coronaries, EF 20-25%, severe MR. ) - Telemetry EKG Rhythm: Paced Pacemaker: ventricular pacing w/capt
--- NOTE | 2018-01-30 14:02 | Hem/Onc Progress Note ---
Assessment and Plan # anemia - MCV low - 1 unit PRBC was ordered. anemia may be a multifactorial - b12, folate, ferritin - normal LDH 200s Smear - ? iron def - but ferritin high - ? inflammatory - will follow the trend of CBC Hb electrophoresis ordered # Leukocytosis - predominant neutrophils - no mention of blasts - path report reviewed OP follow up for trend of the CBC an option # h/o CHF # h/o COPD # h/o DM # h/o HTN - Patient Problems (1) Anemia Current Visit: Yes Status: Acute Qualifiers: Anemia type: other cause (2) Leukocytosis Current Visit: Yes Status: Acute Qualifiers: Leukocytosis type: other Qualified Code(s): D72.828 - Other elevated white blood cell count Subjective Date of service: 01/30/18 Principal diagnosis: anemia, leukocytosis Interval history: pt says he is feeling better. he is eating and breathing better. no bleeding wbc and hb better - pt not keen for BMBX Objective - Constitutional Vitals: Last Vital Signs Temp 98.7 F 01/30/18 09:44 Pulse 74 01/30/18 09:44 Resp 18 01/30/18 09:44 BP 139/67 01/30/18 09:44 Pulse Ox 98 01/30/18 09:44 Pain Intensity (0-10): denies any pain General appearance: no acute distress Performance status: 2- selfcare, ambulatory - EENT Eyes: PERRL ENT: clear oral mucosa Lymph node exam: negative cervical, negative supraclavicular - Neck Neck: supple - Respiratory Respiratory effort: Positive: normal Respiratory: bilateral: CTA - Cardiovascular Heart Sounds: Present: S1 & S2 Extremity abnormal: edema - Gastrointestinal General gastrointestinal: Present: soft, non-tender Rectal Exam: deferred - Genitourinary Male genitourinary: Present: deferred - Integumentary Integumentary: warm - Musculoskeletal Musculoskeletal: strength equal bilaterally - Neurologic Neurologic: moves all extremities - Psychiatric Psychiatric: appropriate mood/affect - Allied health notes Allied health notes reviewed: nursing - Labs Lab Results: Laboratory Results - last 24 hr 01/29/18 01/29/18 01/30/18 15:39 22:04 09:10 POC Glucose 410 H 328 H 418 H Hemoglobin A1c 01/30/18 10:04 POC Glucose Hemoglobin A1c 5.5
--- NOTE | 2018-01-30 14:59 | Progress Note ---
Assessment and Plan Impression: * Chronic kidney disease * Acute hypoxic respiratory failure secondary to pulmonary edema vs other * Anemia * Leukocytosis * Hyperkalemia, mild * Metabolic acidosis Plan: * Renal function is stable, follow up lytes prn * Diuresis prn * Cont po bicarbonate * Transfuse pRBC per primary team * Empiric abx per primary team - blood cx pending * Hematology recommendations noted * Avoid potential nephrotoxins * Strict I/O Subjective Date of service: 01/30/18 Principal diagnosis: anemia, leukocytosis Interval history: resting well in bed today Objective - Exam Narrative Exam: - EENT Eyes: PERRL ENT: clear oral mucosa Lymph node exam: negative cervical, negative supraclavicular - Neck Neck: supple - Respiratory Respiratory effort: Positive: normal Respiratory: bilateral: CTA - Cardiovascular Heart Sounds: Present: S1 & S2 Extremity abnormal: edema - Gastrointestinal General gastrointestinal: Present: soft, non-tender Rectal Exam: deferred - Genitourinary Male genitourinary: Present: deferred - Integumentary Integumentary: warm - Musculoskeletal Musculoskeletal: strength equal bilaterally - Neurologic Neurologic: moves all extremities - Psychiatric Psychiatric: appropriate mood/affect - Vital Signs Vital signs: Vital Signs - 12hr 01/30/18 01/30/18 01/30/18 04:22 07:47 07:57 Temperature Pulse Rate 61 Pulse Rate [ 75 71 Anterior Bilateral Throughout] Respiratory Rate Respiratory 20 20 Rate [Anterior Bilateral Throughout] Blood Pressure 129/59 Blood Pressure [Left] O2 Sat by Pulse 97 Oximetry 01/30/18 01/30/18 08:00 09:44 Temperature 98.7 F Pulse Rate 74 74 Pulse Rate [ Anterior Bilateral Throughout] Respiratory 18 Rate Respiratory Rate [Anterior Bilateral Throughout] Blood Pressure Blood Pressure 139/67 [Left] O2 Sat by Pulse 98 Oximetry - Lab 01/29/18 05:12 01/29/18 05:12 Most recent lab results Calcium 8.9 mg/dL (8.4-10.2) 01/29/18 05:12 Phosphorus 2.70 mg/dL (2.5-4.5) 01/28/18 05:13 Magnesium 1.90 mg/dL (1.7-2.3) 01/29/18 05:12
--- NOTE | 2018-01-30 15:12 | Progress Note ---
Assessment and Plan Assessment and plan: --Type 2 diabetes mellitus; uncontrolled, secondary to noncompliance with diet, Metformin head due to acute kidney injury and patient is on steroids Accu-Chek sliding scale coverage and ADA diet, Increase Insulin dose as needed --Severe leukocytosis; possible leukemia hematology Recommended bone marrow biopsy, patient refused at this time --Acute on chronic systolic congestive heart failure; ejection fraction 20% Continue anti-failure medications, input output monitoring, cardiology consult --Nonischemic cardiomyopathy; continue anti-failure medications, low sodium diet Fluids friction, input output monitoring --Anemia; requiring blood transfusion, stool for occult blood Hematology evaluation, possible bone marrow if needed Patient received 1 unit of blood transfusion, closely monitor H&H --Symptomatic anemia; symptoms may improve posttransfusion Supportive care --Hypertension; moderate control, continue current antihypertensives When necessary medications --Acute kidney injury; vasomotor nephropathy/secondary to ATN Closely monitor renal function, avoid nephrotoxin, nephro consult if needed --Obstructive sleep apnea; CPAP BiPAP at night --DVT prophylaxis; Lovenox Closely monitor the patient and adjust the management as needed Possible discharge and wanted 2 days stable History Interval history: Patient Seen and examined medical records reviewed No new Events reported by the nursing staff Blood sugars uncontrolled secondary to noncompliance with food And metformin needs help in view off acute kidney injury, patient is on steroids Patient wants to go home However blood sugars in 400s Alert awake oriented 3 Vital signs reviewed Hospitalist Physical - Constitutional Vitals: Temp Pulse Resp BP Pulse Ox 98.7 F 74 18 139/67 98 01/30/18 09:44 01/30/18 09:44 01/30/18 09:44 01/30/18 09:44 01/30/18 09:44 General appearance: Present: no acute distress, well-nourished, obese - EENT Eyes: Present: PERRL, EOM intact - Neck Neck: Present: supple, normal ROM - Respiratory Respiratory effort: normal Respiratory: negative: rales, rhonchi, wheezing - Cardiovascular Rhythm: regular Heart Sounds: Present: S1 & S2 - Extremities Extremities: no ischemia, No edema - Abdominal General gastrointestinal: soft, non-tender, non-distended, normal bowel sounds - Integumentary Integumentary: Present: clear, warm - Psychiatric Psychiatric: appropriate mood/affect, cooperative - Neurologic Neurologic: CNII-XII intact, other Results - Labs CBC & Chem 7: 01/29/18 05:12 01/29/18 05:12 Labs: Laboratory Last Values WBC 20.7 K/mm3 (4.5-11.0) H 01/29/18 05:12 RBC 3.88 M/mm3 (3.65-5.03) 01/29/18 05:12 Hgb 8.9 gm/dl (11.8-15.2) L 01/29/18 05:12 Hct 26.8 % (35.5-45.6) L 01/29/18 05:12 MCV 69 fl (84-94) L 01/29/18 05:12 MCH 23 pg (28-32) L 01/29/18 05:12 MCHC 33 % (32-34) 01/29/18 05:12 RDW 36.8 % (13.2-15.2) H 01/29/18 05:12 Plt Count 184 K/mm3 (140-440) 01/29/18 05:12 Add Manual Diff Complete 01/29/18 05:12 Total Counted 100 01/29/18 05:12 Seg Neutrophils % Director Federal 01/28/18 05:13 Seg Neuts % (Manual) 84.0 % (40.0-70.0) H 01/29/18 05:12 Band Neutrophils % 1.0 % 01/29/18 05:12 Lymphocytes % (Manual) 11.0 % (13.4-35.0) L 01/29/18 05:12 Reactive Lymphs % (Man) 0 % 01/29/18 05:12 Monocytes % (Manual) 3.0 % (0.0-7.3) 01/29/18 05:12 Eosinophils % (Manual) 0 % (0.0-4.3) 01/29/18 05:12 Basophils % (Manual) 1.0 % (0.0-1.8) 01/29/18 05:12 Metamyelocytes % 0 % 01/29/18 05:12 Myelocytes % 0 % 01/29/18 05:12 Promyelocytes % 0 % 01/29/18 05:12 Blast Cells % 0 % 01/29/18 05:12 Nucleated RBC % Not Reportable 01/29/18 05:12 Seg Neutrophils # Man 17.4 K/mm3 (1.8-7.7) H 01/29/18 05:12 Band Neutrophils # 0.2 K/mm3 01/29/18 05:12 Lymphocytes # (Manual) 2.3 K/mm3 (1.2-5.4) 01/29/18 05:12 Abs React Lymphs (Man) 0.0 K/mm3 01/29/18 05:12 Monocytes # (Manual) 0.6 K/mm3 (0.0-0.8) 01/29/18 05:12 Eosinophils # (Manual) 0.0 K/mm3 (0.0-0.4) 01/29/18 05:12 Basophils # (Manual) 0.2 K/mm3 (0.0-0.1) H 01/29/18 05:12 Metamyelocytes # 0.0 K/mm3 01/29/18 05:12 Myelocytes # 0.0 K/mm3 01/29/18 05:12 Promyelocytes # 0.0 K/mm3 01/29/18 05:12 Blast Cells # 0.0 K/mm3 01/29/18 05:12 Pathologist Review 01/28/18 05:13 WBC Morphology Not Reportable 01/29/18 05:12 Hypersegmented Neuts Not Reportable 01/29/18 05:12 Hyposegmented Neuts Not Reportable 01/29/18 05:12 Hypogranular Neuts Not Reportable 01/29/18 05:12 Smudge Cells Not Reportable 01/29/18 05:12 Toxic Granulation Not Reportable 01/29/18 05:12 Toxic Vacuolation Not Reportable 01/29/18 05:12 Dohle Bodies Not Reportable 01/29/18 05:12 Pelger-Huet Anomaly Not Reportable 01/29/18 05:12 Dennise Rods Not Reportable 01/29/18 05:12 Platelet Estimate Consistent w auto 01/29/18 05:12 Clumped Platelets Not Reportable 01/29/18 05:12 Plt Clumps, EDTA Not Reportable 01/29/18 05:12 Large Platelets Not Reportable 01/29/18 05:12 Giant Platelets Not Reportable 01/29/18 05:12 Platelet Satelliting Not Reportable 01/29/18 05:12 Plt Morphology Comment Not Reportable 01/29/18 05:12 RBC Morphology Not Reportable 01/29/18 05:12 Dimorphic RBCs Not Reportable 01/29/18 05:12 Polychromasia Not Reportable 01/29/18 05:12 Hypochromasia Not Reportable 01/29/18 05:12 Poikilocytosis Not Reportable 01/29/18 05:12 Anisocytosis 3+ 01/29/18 05:12 Microcytosis 2+ 01/29/18 05:12 Macrocytosis Not Reportable 01/29/18 05:12 Spherocytes Not Reportable 01/29/18 05:12 Pappenheimer Bodies Not Reportable 01/29/18 05:12 Sickle Cells Not Reportable 01/29/18 05:12 Target Cells Not Reportable 01/29/18 05:12 Tear Drop Cells Not Reportable 01/29/18 05:12 Ovalocytes 2+ 01/29/18 05:12 Helmet Cells Not Reportable 01/29/18 05:12 [place] Bodies Not Reportable 01/29/18 05:12 [place] Rings Not Reportable 01/29/18 05:12 Gloria Cells Not Reportable 01/29/18 05:12 Bite Cells Not Reportable 01/29/18 05:12 Crenated Cell Not Reportable 01/29/18 05:12 Elliptocytes Not Reportable 01/29/18 05:12 Acanthocytes (Spur) Not Reportable 01/29/18 05:12 Rouleaux Not Reportable 01/29/18 05:12 Hemoglobin C Crystals Not Reportable 01/29/18 05:12 Schistocytes 1+ 01/29/18 05:12 Malaria parasites Not Reportable 01/29/18 05:12 Fernie Bodies Not Reportable 01/29/18 05:12 Hem Pathologist Commnt No 01/29/18 05:12 PT 17.3 Sec. (12.2-14.9) H 01/26/18 21:09 INR 1.34 (0.87-1.13) H 01/26/18 21:09 APTT 52.4 Sec. (24.2-36.6) H 01/26/18 21:09 POC ABG pH 7.386 (7.35-7.45) 01/27/18 01:35 POC ABG pCO2 26.3 (35-45) L 01/27/18 01:35 POC ABG pO2 253 (80-105) H 01/27/18 01:35 POC ABG HCO3 15.8 01/27/18 01:35 POC ABG Total CO2 17 01/27/18 01:35 POC ABG O2 Sat 100 01/27/18 01:35 POC ABG Base Excess -9 01/27/18 01:35 VBG pH 7.326 (7.320-7.420) 01/26/18 21:09 FiO2 100 % 01/27/18 01:35 Sodium 135 mmol/L (137-145) L 01/29/18 05:12 Potassium 4.5 mmol/L (3.6-5.0) 01/29/18 05:12 Chloride 101.5 mmol/L (98-107) 01/29/18 05:12 Carbon Dioxide 20 mmol/L (22-30) L 01/29/18 05:12 Anion Gap 18 mmol/L 01/29/18 05:12 BUN 80 mg/dL (9-20) H 01/29/18 05:12 Creatinine 1.7 mg/dL (0.8-1.5) H 01/29/18 05:12 Estimated GFR 48 ml/min 01/29/18 05:12 BUN/Creatinine Ratio 47 % 01/29/18 05:12 Glucose 354 mg/dL (75-100) H 01/29/18 05:12 POC Glucose 418 (70-105) H 01/30/18 09:10 Hemoglobin A1c 5.5 % (4-6) 01/30/18 10:04 Lactic Acid 0.90 mmol/L (0.7-2.0) 01/26/18 22:45 Calcium 8.9 mg/dL (8.4-10.2) 01/29/18 05:12 Phosphorus 2.70 mg/dL (2.5-4.5) 01/28/18 05:13 Magnesium 1.90 mg/dL (1.7-2.3) 01/29/18 05:12 Iron 74 ug/dL (49-181) 01/28/18 05:13 TIBC 194 mcg/dL (250-450) L 01/28/18 05:13 % Saturation 9.77 % 01/27/18 06:49 Transferrin 158 mg/dl (180-329) L 01/27/18 06:49 Ferritin 675.1 ng/mL (13.0-400.0) H 01/28/18 05:13 Total Bilirubin 0.90 mg/dL (0.1-1.2) 01/29/18 05:12 AST 21 units/L (5-40) 01/29/18 05:12 ALT 43 units/L (7-56) 01/29/18 05:12 Alkaline Phosphatase 135 units/L (35-129) H 01/29/18 05:12 Lactate Dehydrogenase 244 units/L (91-180) H 01/28/18 05:13 Total Creatine Kinase 347 units/L (55-170) H 01/27/18 09:59 CK-MB (CK-2) 3.7 ng/mL (0.0-4.0) 01/27/18 09:59 CK-MB (CK-2) Rel Index 1.0 (0-4) 01/27/18 09:59 Troponin T 0.015 ng/mL (0.00-0.029) 01/27/18 09:59 NT-Pro-B Natriuret Pep 4260 pg/mL (0-900) H 01/26/18 19:54 Total Protein 6.6 g/dL (6.3-8.2) 01/29/18 05:12 Albumin 3.1 g/dL (3.9-5) L 01/29/18 05:12 Albumin/Globulin Ratio 0.9 % 01/29/18 05:12 Triglycerides 107 mg/dL (2-149) 01/26/18 19:54 Cholesterol 61 mg/dL (50-199) 01/26/18 19:54 LDL Cholesterol Direct 17 mg/dL (50-130) L 01/26/18 19:54 HDL Cholesterol 14 mg/dL (40-59) L 01/26/18 19:54 Cholesterol/HDL Ratio 4.35 % 01/26/18 19:54 Vitamin B12 > 2000 pg/mL (211-911) H 01/28/18 05:13 Folate 16.74 ng/mL (7.3-26.0) 01/28/18 05:13 Urine Color Karuna (Yellow) 01/26/18 21:55 Urine Turbidity Cloudy (Clear) 01/26/18 21:55 Urine pH 5.0 (5.0-7.0) 01/26/18 21:55 Ur Specific [place] 1.015 (1.003-1.030) 01/26/18 21:55 Urine Protein 100 mg/dl mg/dL (Negative) 01/26/18 21:55 Urine Glucose (UA) Neg mg/dL (Negative) 01/26/18 21:55 Urine Ketones Neg mg/dL (Negative) 01/26/18 21:55 Urine Blood Sm (Negative) 01/26/18 21:55 Urine Nitrite Neg (Negative) 01/26/18 21:55 Urine Bilirubin Neg (Negative) 01/26/18 21:55 Urine Urobilinogen 4.0 mg/dL (<2.0) 01/26/18 21:55 Ur Leukocyte Esterase Neg (Negative) 01/26/18 21:55 Urine WBC (Auto) 2.0 /HPF (0.0-6.0) 01/26/18 21:55 Urine RBC (Auto) 16.0 /HPF (0.0-6.0) 01/26/18 21:55 Urine Bacteria (Auto) 1+ /HPF (Negative) 01/26/18 21:55 Hyaline Casts 1 /LPF 01/26/18 21:55 Urine Mucus Few /HPF 01/26/18 21:55 Urine Yeast (Budding) 2+ /HPF 01/26/18 21:55 Blood Type A POSITIVE 01/26/18 21:14 Antibody Screen Negative 01/26/18 21:14 Crossmatch See Detail 01/26/18 21:14
--- NOTE | 2018-01-30 15:18 | Discharge Summary ---
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 Primary care physician: ELEVATED [facility]ARD Hospitalization Reason for admission: worsening shortness of breath Condition: Stable Hospital course: Please refer to detailed progress note of today Patient wants to leave AGAINST MEDICAL ADVICE Counseling done, risks consequences of uncontrolled blood sugars Also explained that he need to see hematology, GI for further evaluation of anemia Nephrology and cardiology as well as primary care physician for follow-up And go to emergency room emergency room as needed Patient signed necessary papers and left AMA Disposition: [id number] LEFT AGAINST MED ADVICE Time spent for discharge: 32 min Core Measure Documentation - Palliative Care Palliative Care/ Comfort Measures: Not Applicable - Core Measures Any of the following diagnoses?: none Exam - Physical Exam Narrative exam: left AMA - Constitutional Vitals: Temp Pulse Resp BP Pulse Ox 98.7 F 74 18 139/67 98 01/30/18 09:44 01/30/18 09:44 01/30/18 09:44 01/30/18 09:44 01/30/18 09:44 Plan Additional Instructions: Patient left AMA Follow up with: BERNARDO SHEIKH MD [Primary Care Provider] - 7 Days ASH LOYOLA MD [Staff Physician] - 7 Days (Follow up in our [place] office with Dr. Chana Loyola on 02/20/2018 @ 3:30PM. ) Forms: AMA Form
== END 2018-01-30 12:30 | disposition left against medical advice (07) | DRG 682 ==
LOC: ED 18:40 → 4A 22:10 → IMCU 01-27 01:44 → 4A 01-27 12:04
PROVIDERS: ADMIT Internal Medicine; ATTEND Internal Medicine
PROC: 30233N1 Transfusion of Nonautologous Red Blood Cells into Peripheral Vein, Percutaneous Approach (ICD-10-PCS; principal; 2018-01-26)
PROC: 4A033R1 Measurement of Arterial Saturation, Peripheral, Percutaneous Approach (ICD-10-PCS; 2018-01-27)
DX: N17.0 Acute kidney failure with tubular necrosis (principal); J96.01 Acute respiratory failure with hypoxia; I50.43 Acute on chronic combined systolic (congestive) and diastolic (congestive) heart failure; I13.0 Hypertensive heart and chronic kidney disease with heart failure and stage 1 through stage 4 chronic kidney disease, or unspecified chronic kidney disease; E87.2 Acidosis; I42.9 Cardiomyopathy, unspecified; G47.33 Obstructive sleep apnea (adult) (pediatric); D72.828 Other elevated white blood cell count; Z53.21 Procedure and treatment not carried out due to patient leaving prior to being seen by health care provider; N18.9 Chronic kidney disease, unspecified; N40.0 Benign prostatic hyperplasia without lower urinary tract symptoms; E11.22 Type 2 diabetes mellitus with diabetic chronic kidney disease; I34.0 Nonrheumatic mitral (valve) insufficiency; D64.9 Anemia, unspecified; E87.5 Hyperkalemia; J44.9 Chronic obstructive pulmonary disease, unspecified; Z95.810 Presence of automatic (implantable) cardiac defibrillator; Z82.49 Family history of ischemic heart disease and other diseases of the circulatory system; Z79.82 Long term (current) use of aspirin; Z79.899 Other long term (current) drug therapy; Z79.52 Long term (current) use of systemic steroids; Z79.84 Long term (current) use of oral hypoglycemic drugs
CPT/HCPCS: 36415; 71045; 80048; 80053; 80061; 81001; 82140; 82550; 82553; 82607; 82728; 82747; 82803; 82805; 82962; 83036; 83550; 83615; 83735; 83880; 84100; 84484; 85007; 85025; 85610; 85730; 86850; 86900; 86901; 86920; 87040; 87086; 93005; 93010; 94640; 94760; 96365; A9270-GY; J1200; J1815; J1940; J2543; J2920; J2930; J7040; P9016

== ENCOUNTER 2019-04-21 15:36 | Emergency (ER) | payer MEDICARE ==
--- NOTE | 2019-04-21 15:42 | Emergency Department Report ---
Blank Doc - Documentation Documentation: 73-year-old male that presents with SOB and epigastric pain This initial assessment/diagnostic orders/clinical plan/treatment(s) is/are subject to change based on patient's health status, clinical progression and re- assessment by fellow clinical providers in the ED. Further treatment and workup at subsequent clinical providers discretion. Patient/guardians urged not to elope from the ED as their condition may be serious if not clinically assessed and managed. Initial orders include: 1- Patient sent to MAIN ED for further evaluation and treatment 2- EKG 3- labs
--- NOTE | 2019-04-21 16:24 | XRay Report ---
CHEST 2 VIEWS INDICATION: Chest Pain. COMPARISON: 02/11/2018 FINDINGS: Support devices: 3-lead pacemaker device is in position. Heart: Mild to moderate cardiomegaly. Lungs/pleura: Mild pulmonary venous congestion and trace right pleural effusion. No evidence for inf iltrate or pneumothorax. Additional findings: None. IMPRESSION: Mild CHF. Signer Name: Tyrel Boyle Jr, MD Signed: 04/21/2019 4:20 PM Workstation Name: [id number]
[2019-04-21 17:55] LABS: INR 1.38 (0.87-1.13)
[2019-04-21 17:56] LABS: Partial Thromboplastin Time 58.5 Sec. (24.2-36.6)
[2019-04-21 17:58] LABS: Albumin 3.6 g/dL (3.9-5); Calcium 9.1 mg/dL (8.4-10.2)
[2019-04-21 18:09] LABS: Chol/HDL Ratio 3.62 %
[2019-04-21 19:06] LABS: Anisocytosis TNR; Basophilic Stippling TNR; Dimorphic RBC TNR; Giant Platelets TNR; Helmet Cells TNR; Howell-Jolly Bodies TNR; Hypersegmented Neutrophils TNR; Hypochromasia TNR; Large Platelets TNR; Macrocytosis TNR; Nucleated Red Blood Cells TNR % (0.0-0.9); Ovalocytes TNR; Pappenheimer Bodies TNR; Platelet Clumps TNR; Platelet Estimate TNR; Platelet Morphology TNR; Platelet Satelitosis TNR; Poikilocytosis TNR; RBC Morphology TNR; Schistocytes TNR; Sickle Cells TNR; Smudge Cells TNR; Spherocytes TNR; Stomatocytes TNR; Target Cells TNR; Tear Drop Cells TNR
[2019-04-21 19:07] LABS: Auer Rods TNR; Bite Cells TNR; Burr Cells TNR; Cabot Rings TNR; Crenated RBC TNR; Dohle Bodies TNR; Hgb C Crystals TNR; Rouleaux TNR; Toxic Granulation TNR; Toxic Vacuolation TNR
[2019-04-21 19:08] LABS: Red Blood Count TNR M/mm3 (3.65-5.03)
[2019-04-21 19:09] LABS: Hematocrit TNR % (35.5-45.6); Hemoglobin TNR gm/dl (11.8-15.2); Mean Corpuscular HGB Conc TNR % (32-34); Mean Corpuscular Volume TNR fl (84-94); Red Cell Distribution Width TNR % (13.2-15.2)
[2019-04-21 19:10] LABS: Platelet Count TNR K/mm3 (140-440)
[2019-04-21 21:37] LABS: Hematocrit 28.4 % (35.5-45.6); Hemoglobin 9.6 gm/dl (11.8-15.2); Mean Corpuscular HGB Conc 34 % (32-34); Mean Corpuscular Volume 70 fl (84-94); Red Blood Count 4.05 M/mm3 (3.65-5.03)
[2019-04-21 21:41] LABS: Platelet Count 273 K/mm3 (140-440); Red Cell Distribution Width > 40.0 % (13.2-15.2)
[2019-04-21] MEDS ORDERED: FUROSEMIDE 40 MG/4 ML INJ IV ONE (21:46)
--- NOTE | 2019-04-21 22:32 | XRay Report ---
ABDOMEN 2 VIEWS INDICATION / CLINICAL INFORMATION: abdominal discomfort/constipation. COMPARISON: None available. FINDINGS: BOWEL: No dilated bowel. FREE AIR / EXTRALUMINAL GAS: None seen. CALCIFICATIONS: No significant abnormal calcifications. ADDITIONAL FINDINGS: None. LUNGS: Visualized lungs show no significant abnormality. SKELETAL STRUCTURES: No significant abnormality. IMPRESSION: 1. No significant abnormality. Signer Name: Jack Bender MD Signed: 04/21/2019 10:28 PM Workstation Name: [id number]
--- NOTE | 2019-04-21 23:20 | Emergency Department Report ---
ED General Adult HPI - General Chief complaint: Abdominal Pain Stated complaint: ABD PAIN/MEGA Time Seen by Provider: 04/21/19 15:40 Source: patient Mode of arrival: Wheelchair Limitations: Physical Limitation - History of Present Illness Initial comments: The patient presents to the emergency department with a chief complaint of difficulty breathing and stomach cramping. She states last couple of days she's had a significant amount of abdominal cramping but denies any tamanna abdominal pain. Patient also states that he's had some shortness of breath and states that it's worse when laying flat. Patient has a history of congestive heart failure and states that he takes his Lasix daily. She denies chest pain -: Gradual Severity scale (0 -10): 1 Quality: other (cramping ) Consistency: constant Improves with: none Worsens with: none Associated Symptoms: denies other symptoms Treatments Prior to Arrival: none - Related Data Home Medications Medication Instructions Recorded Confirmed Last Taken carvediloL [Coreg] 25 mg PO BID 10/31/15 02/11/18 1 Day Ago ~01/26/18 Albuterol Sulfate [Ventolin HFA] 2 puff IH Q6H PRN 01/27/18 02/11/18 Unknown Allopurinol 100 mg PO BID 01/27/18 02/11/18 1 Day Ago ~01/26/18 Amlodipine Besylate [Norvasc] 10 mg PO QDAY 01/27/18 02/11/18 1 Day Ago ~01/26/18 AtorvaSTATin [Lipitor] 20 mg PO QHS 01/27/18 02/11/18 1 Day Ago ~01/26/18 Fluticasone [Flonase] 1 spray NS QDAY 01/27/18 02/11/18 Unknown Iron Fum,Ps/Folic/Bcomp,C No.9 1 each PO QDAY 01/27/18 02/11/18 1 Day Ago [Integra Plus Capsule] ~01/26/18 Mometasone/Formoterol [Dulera 100 2 puff IH BID 01/27/18 02/11/18 Unknown Mcg/5 Mcg Inhaler] Vitamin E 800 unit PO QDAY 01/27/18 02/11/18 1 Day Ago ~01/26/18 cycloSPORINE (NF) [Restasis (Nf)] 2 each OP QDAY 01/27/18 02/11/18 Unknown hydrOXYzine HCl [Hydroxyzine HCl] 25 mg PO Q8H PRN 01/27/18 02/11/18 Unknown glyBURIDE [Glyburide] 5 mg PO BID 02/14/18 02/14/18 Unknown Previous Rx's Medication Instructions Recorded Last Taken Type Furosemide [Lasix TAB] 40 mg PO QDAY #30 tablet 02/12/17 1 Day Ago Rx ~01/26/18 Spironolactone [Aldactone] 25 mg PO QDAY tablet 02/12/17 1 Day Ago Rx ~01/26/18 Tamsulosin [Flomax] 0.4 mg PO DAILY capsule 02/12/17 1 Day Ago Rx ~01/26/18 levoFLOXacin [Levaquin] 750 mg PO QDAY 4 Days tablet 02/14/18 Unknown Rx Allergies Allergy/AdvReac Type Severity Reaction Status Date / Time No Known Allergies Allergy Verified 02/11/17 07:18 ED Review of Systems ROS: Stated complaint: ABD PAIN/MEGA Other details as noted in HPI Comment: All other systems reviewed and negative Constitutional: denies: chills, fever Eyes: denies: eye pain, eye discharge, vision change ENT: denies: ear pain, throat pain Respiratory: denies: cough, shortness of breath, wheezing Cardiovascular: denies: chest pain, palpitations Endocrine: no symptoms reported Gastrointestinal: denies: abdominal pain, nausea, diarrhea Genitourinary: denies: urgency, dysuria Musculoskeletal: denies: back pain, joint swelling, arthralgia Skin: denies: rash, lesions Neurological: denies: headache, weakness, paresthesias Psychiatric: denies: anxiety, depression Hematological/Lymphatic: denies: easy bleeding, easy bruising ED Past Medical Hx - Past Medical History Previous Medical History?: Yes Hx Hypertension: Yes (20yrs ago) Hx Heart Attack/AMI: No Hx Congestive Heart Failure: Yes Hx Diabetes: Yes Hx Renal Disease: (BPH) Hx COPD: Yes Additional medical history: Sleep apnea with CPAP - Surgical History Past Surgical History?: Yes Hx Pacemaker: Yes (ICD-Left) Hx Internal Defibrillator: Yes - Social History Smoking Status: Never Smoker Substance Use Type: None - Medications Home Medications: Home Medications Medication Instructions Recorded Confirmed Last Taken Type carvediloL [Coreg] 25 mg PO BID 10/31/15 02/11/18 1 Day Ago History ~01/26/18 Furosemide [Lasix TAB] 40 mg PO QDAY #30 tablet 02/12/17 02/11/18 1 Day Ago Rx ~01/26/18 Spironolactone [Aldactone] 25 mg PO QDAY tablet 02/12/17 02/11/18 1 Day Ago Rx ~01/26/18 Tamsulosin [Flomax] 0.4 mg PO DAILY capsule 02/12/17 02/11/18 1 Day Ago Rx ~01/26/18 Albuterol Sulfate [Ventolin HFA] 2 puff IH Q6H PRN 01/27/18 02/11/18 Unknown History Allopurinol 100 mg PO BID 01/27/18 02/11/18 1 Day Ago History ~01/26/18 Amlodipine Besylate [Norvasc] 10 mg PO QDAY 01/27/18 02/11/18 1 Day Ago History ~01/26/18 AtorvaSTATin [Lipitor] 20 mg PO QHS 01/27/18 02/11/18 1 Day Ago History ~01/26/18 Fluticasone [Flonase] 1 spray NS QDAY 01/27/18 02/11/18 Unknown History Iron Fum,Ps/Folic/Bcomp,C No.9 1 each PO QDAY 01/27/18 02/11/18 1 Day Ago History [Integra Plus Capsule] ~01/26/18 Mometasone/Formoterol [Dulera 100 2 puff IH BID 01/27/18 02/11/18 Unknown History Mcg/5 Mcg Inhaler] Vitamin E 800 unit PO QDAY 01/27/18 02/11/18 1 Day Ago History ~01/26/18 cycloSPORINE (NF) [Restasis (Nf)] 2 each OP QDAY 01/27/18 02/11/18 Unknown History hydrOXYzine HCl [Hydroxyzine HCl] 25 mg PO Q8H PRN 01/27/18 02/11/18 Unknown History glyBURIDE [Glyburide] 5 mg PO BID 02/14/18 02/14/18 Unknown History levoFLOXacin [Levaquin] 750 mg PO QDAY 4 Days tablet 02/14/18 Unknown Rx ED Physical Exam - General Limitations: Physical Limitation General appearance: alert, in no apparent distress - Head Head exam: Present: atraumatic, normocephalic - Eye Eye exam: Present: normal appearance, PERRL, EOMI - ENT ENT exam: Present: mucous membranes moist - Neck Neck exam: Present: normal inspection - Respiratory Respiratory exam: Present: normal lung sounds bilaterally, rales (mild Rales bilaterally). Absent: respiratory distress - Cardiovascular Cardiovascular Exam: Present: regular rate, normal rhythm. Absent: systolic murmur, diastolic murmur, rubs, gallop - GI/Abdominal GI/Abdominal exam: Present: soft, normal bowel sounds. Absent: distended, tenderness - Rectal Rectal exam: Present: deferred - Extremities Exam Extremities exam: Present: normal inspection. Absent: pedal edema, joint swelling, calf tenderness - Back Exam Back exam: Present: normal inspection - Neurological Exam Neurological exam: Present: alert, oriented X3, CN II-XII intact. Absent: motor sensory deficit - Psychiatric Psychiatric exam: Present: normal affect, normal mood - Skin Skin exam: Present: warm, dry, intact, normal color. Absent: rash ED Course Vital Signs 04/21/19 04/21/19 04/21/19 15:41 20:54 21:00 Temperature 97.6 F Pulse Rate 108 H 135 H 98 H Respiratory 19 25 H 34 H Rate Blood Pressure 111/73 107/50 Blood Pressure 107/50 [Left] O2 Sat by Pulse 96 96 Oximetry 04/21/19 04/21/19 04/21/19 21:16 21:30 21:45 Temperature Pulse Rate 97 H 104 H 102 H Respiratory 26 H 31 H 27 H Rate Blood Pressure 107/61 105/64 Blood Pressure [Left] O2 Sat by Pulse 92 91 88 Oximetry 04/21/19 04/21/19 04/21/19 22:00 22:18 22:30 Temperature Pulse Rate 102 H 109 H Respiratory 24 24 Rate Blood Pressure 105/64 105/64 107/69 Blood Pressure [Left] O2 Sat by Pulse 98 91 Oximetry 04/21/19 04/21/19 22:46 23:00 Temperature Pulse Rate 104 H 106 H Respiratory 15 30 H Rate Blood Pressure 98/71 102/72 Blood Pressure [Left] O2 Sat by Pulse 95 92 Oximetry ED Medical Decision Making - Lab Data Result diagrams: 04/21/19 21:10 04/21/19 16:39 Lab Results 04/21/19 04/21/19 04/21/19 Range/Units 16:39 16:39 16:39 WBC TNR RBC TNR Hgb TNR Hct TNR MCV TNR MCH TNR MCHC TNR RDW TNR Plt Count TNR Nucleated RBC % TNR WBC Morphology TNR Hypersegmented Neuts TNR Hyposegmented Neuts TNR Hypogranular Neuts TNR Smudge Cells TNR Toxic Granulation TNR Toxic Vacuolation TNR Dohle Bodies TNR Pelger-Huet Anomaly TNR Dennise Rods TNR Platelet Estimate TNR Clumped Platelets TNR Plt Clumps, EDTA TNR Large Platelets TNR Giant Platelets TNR Platelet Satelliting TNR Plt Morphology Comment TNR RBC Morphology TNR Dimorphic RBCs TNR Polychromasia TNR Hypochromasia TNR Poikilocytosis TNR Basophilic Stippling TNR Anisocytosis TNR Microcytosis TNR Macrocytosis TNR Spherocytes TNR Pappenheimer Bodies TNR Sickle Cells TNR Target Cells TNR Tear Drop Cells TNR Ovalocytes TNR Stomatocytes TNR Helmet Cells TNR [place] Bodies TNR [place] Rings TNR [place] Cells TNR Bite Cells TNR Crenated Cell TNR Elliptocytes TNR Acanthocytes (Spur) TNR Rouleaux TNR Hemoglobin C Crystals TNR Schistocytes TNR Malaria parasites TNR Fernie Bodies TNR Hem Pathologist Commnt TNR PT 16.8 H (12.2-14.9) Sec. INR 1.38 H (0.87-1.13) APTT 58.5 H (24.2-36.6) Sec. Sodium 140 (137-145) mmol/L Potassium 4.2 (3.6-5.0) mmol/L Chloride 103.4 (98-107) mmol/L Carbon Dioxide 16 L (22-30) mmol/L Anion Gap 25 mmol/L BUN 34 H (9-20) mg/dL Creatinine 1.5 (0.8-1.5) mg/dL Estimated GFR 55 ml/min BUN/Creatinine Ratio 23 % Glucose 174 H (75-100) mg/dL Calcium 9.1 (8.4-10.2) mg/dL Total Bilirubin 2.10 H (0.1-1.2) mg/dL AST 21 (5-40) units/L ALT 18 (7-56) units/L Alkaline Phosphatase 187 H (35-129) units/L Troponin T 0.074 H (0.00-0.029) ng/mL NT-Pro-B Natriuret Pep 73187 H (0-900) pg/mL Total Protein 7.1 (6.3-8.2) g/dL Albumin 3.6 L (3.9-5) g/dL Albumin/Globulin Ratio 1.0 % Triglycerides 85 (2-149) mg/dL Cholesterol 116 (50-199) mg/dL LDL Cholesterol Direct 80 (50-130) mg/dL HDL Cholesterol 32 L (40-59) mg/dL Cholesterol/HDL Ratio 3.62 % Lipase 13 (13-60) units/L 04/21/19 04/21/19 04/21/19 Range/Units 21:10 21:10 21:10 WBC 10.0 RBC 4.05 Hgb 9.6 L Hct 28.4 L MCV 70 L MCH 24 L MCHC 34 RDW > 40.0 H Plt Count 273 Nucleated RBC % WBC Morphology Hypersegmented Neuts Hyposegmented Neuts Hypogranular Neuts Smudge Cells Toxic Granulation Toxic Vacuolation Dohle Bodies Pelger-Huet Anomaly Dennise Rods Platelet Estimate Clumped Platelets Plt Clumps, EDTA Large Platelets Giant Platelets Platelet Satelliting Plt Morphology Comment RBC Morphology Dimorphic RBCs Polychromasia Hypochromasia Poikilocytosis Basophilic Stippling Anisocytosis Microcytosis Macrocytosis Spherocytes Pappenheimer Bodies Sickle Cells Target Cells Tear Drop Cells Ovalocytes Stomatocytes Helmet Cells [place] Bodies [place] Rings Gloria Cells Bite Cells Crenated Cell Elliptocytes Acanthocytes (Spur) Rouleaux Hemoglobin C Crystals Schistocytes Malaria parasites Fernie Bodies Hem Pathologist Commnt PT (12.2-14.9) Sec. INR (0.87-1.13) APTT (24.2-36.6) Sec. Sodium (137-145) mmol/L Potassium (3.6-5.0) mmol/L Chloride (98-107) mmol/L Carbon Dioxide (22-30) mmol/L Anion Gap mmol/L BUN (9-20) mg/dL Creatinine (0.8-1.5) mg/dL Estimated GFR ml/min BUN/Creatinine Ratio % Glucose (75-100) mg/dL Calcium (8.4-10.2) mg/dL Total Bilirubin (0.1-1.2) mg/dL AST (5-40) units/L ALT (7-56) units/L Alkaline Phosphatase (35-129) units/L Troponin T 0.073 H 0.070 H (0.00-0.029) ng/mL NT-Pro-B Natriuret Pep (0-900) pg/mL Total Protein (6.3-8.2) g/dL Albumin (3.9-5) g/dL Albumin/Globulin Ratio % Triglycerides (2-149) mg/dL Cholesterol (50-199) mg/dL LDL Cholesterol Direct (50-130) mg/dL HDL Cholesterol (40-59) mg/dL Cholesterol/HDL Ratio % Lipase (13-60) units/L - EKG Data -: EKG Interpreted by Me - EKG Data Interpretation: other (paced rhythm) - Radiology Data Radiology results: report reviewed - Medical Decision Making Discussed results and plan of care with patient IV lasix given Admission offered and the patient politely declined Critical Care Time: Yes Critical care time in (mins) excluding proc time.: 35 Critical care attestation.: If time is entered above; I have spent that time in minutes in the direct care of this critically ill patient, excluding procedure time. ED Disposition Clinical Impression: CHF (congestive heart failure), Abdominal pain Disposition: TO HOME OR SELFCARE Is pt being admited?: No Does the pt Need Aspirin: No Condition: Stable Instructions: Heart Failure (ED), Abdominal Pain (ED) Additional Instructions: return if worse Referrals: [facility] [Provider Group] - 3-5 Days [facility] [Provider Group] - 3-5 Days Time of Disposition: 23:20
[2019-04-22 00:56] VITALS: BP 108/60
== END 2019-04-22 00:56 | disposition home or self-care (01) ==
LOC: ED 15:36
DX: I50.9 Heart failure, unspecified (principal); I11.0 Hypertensive heart disease with heart failure; E11.9 Type 2 diabetes mellitus without complications; J44.1 Chronic obstructive pulmonary disease with (acute) exacerbation; Z95.818 Presence of other cardiac implants and grafts; Z79.899 Other long term (current) drug therapy; R10.9 Unspecified abdominal pain
CPT/HCPCS: 36415; 71046; 74019; 80053; 80061; 83690; 83880; 84484; 85007; 85025; 85027; 85610; 85730; 93005; 93010; 96374; 99284; J1940